=== PATIENT | female | born 1935 | race Caucasian/White ===

== ENCOUNTER 2021-06-03 16:08 | Outpatient (REF) | payer MEDICARE, SELFPAY ==
[2021-06-03 17:47] LABS: Bilirubin Negative (Negative); Blood Negative (Negative); Clarity Clear (Clear); Glucose Negative (Negative); Ketones Negative (Negative); Leukocyte Esterase Negative (Negative); Nitrite Negative (Negative); Urobilinogen 0.2 EU/dL (Up TO 0.2); pH 5.5 (5-8)
== END 2021-06-03 16:09 | disposition home or self-care (01) ==
LOC: NCHCN 16:08
PROVIDERS: Visit Provider Nurse Practitioner Family
DX: N39.0 Urinary tract infection, site not specified (principal)
CPT/HCPCS: 81003

== ENCOUNTER 2021-08-25 18:35 | Outpatient (REF) | payer MEDICARE, SELFPAY | END 2021-08-25 18:36 | disposition home or self-care (01) | LOC: NCHCN 18:35 | PROVIDERS: Visit Provider Nurse Practitioner Family | DX: N39.0 Urinary tract infection, site not specified (principal) | CPT/HCPCS: 87086 ==

== ENCOUNTER 2021-12-30 18:04 | Outpatient (REF) | payer MEDICARE, SELFPAY | END 2021-12-30 18:05 | disposition home or self-care (01) | LOC: NCHCN 18:04 | PROVIDERS: Visit Provider Family Medicine | DX: R35.0 Frequency of micturition (principal); Z87.448 Personal history of other diseases of urinary system | CPT/HCPCS: 87086 ==

== ENCOUNTER 2022-04-06 17:53 | Outpatient (REF) | payer MEDICARE, SELFPAY ==
[2022-04-06 21:12] LABS: Bilirubin Negative (Negative); Blood Moderate (Negative); Clarity Cloudy (Clear); Glucose Negative (Negative); Ketones Negative (Negative); Leukocyte Esterase Large (Negative); Nitrite Negative (Negative); Specific Gravity 1.015 (1.005-1.025); Urobilinogen 0.2 EU/dL (Up TO 0.2); pH 6.5 (5-8)
[2022-04-06 21:21] LABS: Bacteria Many HPF (Negative); WBC >50 HPF (0-5)
[2022-04-06 21:22] LABS: C & S Indicated? Yes
== END 2022-04-06 17:54 | disposition home or self-care (01) ==
LOC: LBN 17:53
PROVIDERS: PCP Nurse Practitioner Family; Visit Provider Nurse Practitioner Family
DX: R39.89 Other symptoms and signs involving the genitourinary system (principal)
CPT/HCPCS: 87077; 81003; 81015; 87086; 87186

== ENCOUNTER 2022-07-02 16:03 | Outpatient (REF) | payer MEDICARE, SELFPAY | END 2022-07-02 16:04 | disposition home or self-care (01) | LOC: NCHCN 16:03 | PROVIDERS: PCP Nurse Practitioner Family; Visit Provider Nurse Practitioner Family | DX: R35.0 Frequency of micturition (principal) | CPT/HCPCS: 87086 ==

== ENCOUNTER 2022-07-22 11:23 | Outpatient (REF) | payer MEDICARE, SELFPAY ==
[2022-07-22 15:36] LABS: HCT 30.2 % (36.0-46.0); HGB 9.9 g/dL (11.2-15.7); MCH 31.1 pg (27.0-33.0); MCHC 32.8 % (32.0-36.0); MCV 95 fL (80-95); MPV 10.2 fL (8.0-11.0); Platelet Count 269 10^3/uL (130-400); RBC 3.18 10^6/uL (3.93-5.22); RDW 14.1 % (11.7-14.6); RDW-SD 49.3 fL
[2022-07-22 15:59] LABS: Anion Gap 7.8 mmol/L (3-11); BUN 11 mg/dL (7-18); CO2 29.2 mmol/L (21.0-32.0); CREATININE 1.1 mg/dL (0.55-1.02); Calcium 10.7 mg/dL (8.5-10.1); Chloride 96 mmol/L (98-107); Estimated GFR 49.24 (mL/min/1.73m2); Glucose 121 mg/dL (74-106); Potassium 5.1 mmol/L (3.5-5.1); Sodium 133 mmol/L (136-145); TSH 1.09 uIU/mL (0.36-3.74)
[2022-07-22 17:26] LABS: Vitamin D 25 Total 65.9 ng/mL (30-100)
[2022-07-23 08:54] LABS: Abs Immature Grans 0.04 10^3/uL (0.0-0.06); Absolute Basophil Count 0.07 10^3/uL (0.0-0.2); Absolute Eosinophil Count 0.29 10^3/uL (0.0-0.7); Absolute Lymphocyte Count 2.03 10^3/uL (1.2-3.4); Absolute Monocyte Count 0.87 10^3/uL (0.1-0.8); Absolute Neutrophil Count 3.91 10^3/uL (1.2-6.7); Immature Grans % 0.6; Lymphocytes % 28.2; Monocytes % 12.1; Neutrophils % 54.1
[2022-07-23 09:17] LABS: Diff Comment Agrees w/ Instrument; RBC Morphology Normal
[2022-07-23 14:37] LABS: Hemoglobin A1C 6.2 % (<5.7)
== END 2022-07-22 11:24 | disposition home or self-care (01) ==
LOC: NCHCN 11:23
PROVIDERS: PCP Nurse Practitioner Family; Visit Provider Nurse Practitioner Family
DX: R53.83 Other fatigue (principal); R73.03 Prediabetes; E83.52 Hypercalcemia
CPT/HCPCS: 80048; 82306; 85027; 83036; 84443; 85007

== ENCOUNTER 2022-07-29 01:19 | Outpatient (CLI) | payer MEDICARE, SELFPAY ==
--- NOTE | 2022-07-29 | DI.RAD_ITS ---
Exam(s) XR CHEST 2V PA LATERAL EXAM: XR CHEST 2V PA LATERAL CLINICAL HISTORY: COVID 19 INFECTION 06/26/22, U07.1, ONGOING FATIGUE, R53.83 TECHNIQUE: 2D digital imaging was performed. COMPARISON: No exams were available for comparison FINDINGS: HEART: Normal size. Aorta: Not dilated. PULMONARY VASCULATURE: Normal. LUNGS: Clear. PLEURAL SPACE: No pleural effusion or pneumothorax. BONE:Unremarkable for age. IMPRESSION: No acute abnormality. DATA REPOSITORY: RADIATION DOSE DELIVERED:
== END 2022-07-29 01:39 ==
PROVIDERS: PCP Nurse Practitioner Family; Visit Provider Nurse Practitioner Family
DX: R53.83 Other fatigue (principal); Z86.16 Personal history of COVID-19; R06.89 Other abnormalities of breathing
CPT/HCPCS: 71046

== ENCOUNTER 2022-08-07 15:47 | Outpatient (REF) | payer MEDICARE, SELFPAY ==
[2022-08-07 19:56] LABS: Iron 50 ug/dL (50-170); Total Iron Binding Capacity 262 ug/dL (250-450); Transferrin Sat 19 % (15-50)
[2022-08-07 20:20] LABS: Ferritin 113 ng/mL (8-252); Vitamin B12 1030 pg/mL (193-986)
[2022-08-07 20:21] LABS: Folate > 20.0 ng/mL (8.6-20.0)
[2022-08-07 20:24] LABS: Vitamin D 25 Total 70.8 ng/mL (30-100)
== END 2022-08-07 15:48 | disposition home or self-care (01) ==
LOC: NCHCN 15:47
PROVIDERS: PCP Nurse Practitioner Family; Visit Provider Nurse Practitioner Family
DX: D64.9 Anemia, unspecified (principal); R53.83 Other fatigue
CPT/HCPCS: 82306; 82607; 82728; 82746; 83540; 83550

== ENCOUNTER 2022-08-17 15:46 | Outpatient (REF) | payer MEDICARE, SELFPAY ==
[2022-08-17 20:15] LABS: Abs Immature Grans 0.05 10^3/uL (0.0-0.06); Absolute Basophil Count 0.08 10^3/uL (0.0-0.2); Absolute Eosinophil Count 0.41 10^3/uL (0.0-0.7); Absolute Lymphocyte Count 2.38 10^3/uL (1.2-3.4); Absolute Monocyte Count 0.58 10^3/uL (0.1-0.8); Absolute Neutrophil Count 3.87 10^3/uL (1.2-6.7); Basophils % 1.1; Eosinophils % 5.6; HGB 10.1 g/dL (11.2-15.7); Immature Grans % 0.7; Lymphocytes % 32.3; MCH 31.7 pg (27.0-33.0); MCHC 33.7 % (32.0-36.0); MCV 94 fL (80-95); MPV 9.8 fL (8.0-11.0); Monocytes % 7.9; Neutrophils % 52.4; Platelet Count 301 10^3/uL (130-400); RBC 3.19 10^6/uL (3.93-5.22); RDW 14.9 % (11.7-14.6); RDW-SD 51.2 fL; Reticulocyte 1.9 % (0.5-2.4); WBC 7.37 10^3/uL (4.4-10.8)
[2022-08-17 20:17] LABS: LDH 129 U/L (81-234)
[2022-08-17 21:40] LABS: Diff Comment Diff Reviewed
[2022-08-17 21:41] LABS: RBC Morphology Normal
[2022-08-19 09:20] LABS: Haptoglobin 193 mg/dL (32-197); Kappa Free Light Chain 8.51 mg/dL (0.33-1.94); Lambda Free Light Chain 0.63 mg/dL (0.57-2.63)
[2022-08-19 13:15] LABS: Albumin 35.9 % (55.8-66.1); Albumin g/dL 3.6 g/dL (3.6-5.2); Comment (See Note); Monoclonal Spike 41.1 % (None Seen); Monoclonal Spike g/dL 4.1 g/dL (None Seen); Total Protein 9.9 g/dL (6.3-8.2)
[2022-08-19 16:41] LABS: Immunotyping, Serum (See Note)
== END 2022-08-17 15:47 | disposition home or self-care (01) ==
LOC: NCHCN 15:46
PROVIDERS: PCP Nurse Practitioner Family; Visit Provider Nurse Practitioner Family
DX: R63.4 Abnormal weight loss (principal); D64.9 Anemia, unspecified; R53.83 Other fatigue
CPT/HCPCS: 85027; 83010; 83615; 83883; 84165; 85007; 85045; 86320

== ENCOUNTER 2022-09-24 04:17 | Outpatient (CLI) | payer MEDICARE, SELFPAY ==
[2022-09-24 12:43] LABS: Abs Immature Grans 0.01 10^3/uL (0.0-0.06); Absolute Basophil Count 0.04 10^3/uL (0.0-0.2); Absolute Eosinophil Count 0.23 10^3/uL (0.0-0.7); Absolute Lymphocyte Count 2.06 10^3/uL (1.2-3.4); Absolute Monocyte Count 0.88 10^3/uL (0.1-0.8); Absolute Neutrophil Count 2.69 10^3/uL (1.2-6.7); Basophils % 0.7; Eosinophils % 3.9; HCT 29.6 % (36.0-46.0); HGB 9.7 g/dL (11.2-15.7); Immature Grans % 0.2; Lymphocytes % 34.9; MCH 31.3 pg (27.0-33.0); MCHC 32.8 % (32.0-36.0); MCV 96 fL (80-95); Monocytes % 14.9; Neutrophils % 45.4; Platelet Count 189 10^3/uL (130-400); RDW 15.6 % (11.7-14.6); RDW-SD 54.7 fL; WBC 5.91 10^3/uL (4.4-10.8)
[2022-09-24 12:57] LABS: ALT 25 U/L (14-59); AST 24 U/L (15-37); Albumin 3.1 g/dL (3.4-5.0); Alkaline Phosphatase 51 U/L (46-116); Anion Gap 7.1 mmol/L (3-11); BUN 29 mg/dL (7-18); Bilirubin, Total 0.3 mg/dL (0.2-1.0); CO2 28.9 mmol/L (21.0-32.0); CREATININE 1.2 mg/dL (0.55-1.02); Calcium 9.9 mg/dL (8.5-10.1); Chloride 101 mmol/L (98-107); Estimated GFR 44.36 (mL/min/1.73m2); Glucose 109 mg/dL (74-106); Potassium 5.1 mmol/L (3.5-5.1); Sodium 137 mmol/L (136-145); Total Protein 8.9 g/dL (6.4-8.2)
[2022-09-25 10:23] LABS: IgA 3293 mg/dL (85-499); IgG 257 mg/dL (610-1616); IgM 31 mg/dL (35-242); Kappa Free Light Chain 2.31 mg/dL (0.33-1.94); Lambda Free Light Chain 0.58 mg/dL (0.57-2.63)
[2022-09-25 12:43] LABS: Albumin 40.9 % (55.8-66.1); Albumin g/dL 3.7 g/dL (3.6-5.2); Comment (See Note); Monoclonal Spike 37.3 % (None Seen); Monoclonal Spike g/dL 3.4 g/dL (None Seen); Total Protein 9.1 g/dL (6.3-8.2)
== END 2022-09-24 04:18 | disposition home or self-care (01) ==
LOC: LBO 04:17
PROVIDERS: PCP Nurse Practitioner Family; Visit Provider Internal Medicine Hematology & Oncology
DX: C90.00 Multiple myeloma not having achieved remission (principal)
CPT/HCPCS: 36415; 80053; 82784; 83883; 84165; 85025

== ENCOUNTER 2022-10-08 03:32 | Outpatient (CLI) | payer MEDICARE, SELFPAY ==
[2022-10-08 10:04] LABS: Abs Immature Grans 0.02 10^3/uL (0.0-0.06); Absolute Basophil Count 0.06 10^3/uL (0.0-0.2); Absolute Eosinophil Count 0.29 10^3/uL (0.0-0.7); Absolute Lymphocyte Count 1.31 10^3/uL (1.2-3.4); Absolute Monocyte Count 0.89 10^3/uL (0.1-0.8); Basophils % 0.7; Eosinophils % 3.5; HCT 27.5 % (36.0-46.0); HGB 9.2 g/dL (11.2-15.7); Immature Grans % 0.2; MCH 32.4 pg (27.0-33.0); MCHC 33.5 % (32.0-36.0); MCV 97 fL (80-95); MPV 9.4 fL (8.0-11.0); Monocytes % 10.9; Neutrophils % 68.7; Platelet Count 315 10^3/uL (130-400); RBC 2.84 10^6/uL (3.93-5.22); RDW 15.4 % (11.7-14.6); RDW-SD 54.9 fL; WBC 8.17 10^3/uL (4.4-10.8)
[2022-10-08 10:22] LABS: ALT 21 U/L (14-59); AST 17 U/L (15-37); Albumin 3.1 g/dL (3.4-5.0); Alkaline Phosphatase 98 U/L (46-116); Anion Gap 5.3 mmol/L (3-11); BUN 26 mg/dL (7-18); Bilirubin, Total 0.4 mg/dL (0.2-1.0); CO2 28.7 mmol/L (21.0-32.0); CREATININE 1.1 mg/dL (0.55-1.02); Calcium 9.4 mg/dL (8.5-10.1); Chloride 99 mmol/L (98-107); Estimated GFR 49.24 (mL/min/1.73m2); Glucose 112 mg/dL (74-106); Potassium 4.6 mmol/L (3.5-5.1); Sodium 133 mmol/L (136-145); Total Protein 6.9 g/dL (6.4-8.2)
[2022-10-09 10:44] LABS: IgA 1134 mg/dL (85-499); IgG 248 mg/dL (610-1616); IgM 17 mg/dL (35-242); Kappa Free Light Chain 2.36 mg/dL (0.33-1.94); Lambda Free Light Chain 0.73 mg/dL (0.57-2.63)
[2022-10-09 13:23] LABS: Albumin 53.2 % (55.8-66.1); Albumin g/dL 3.5 g/dL (3.6-5.2); Comment (See Note); Monoclonal Spike 16.7 % (None Seen); Monoclonal Spike g/dL 1.1 g/dL (None Seen); Total Protein 6.6 g/dL (6.3-8.2)
== END 2022-10-08 03:33 | disposition home or self-care (01) ==
LOC: LBO 03:33
PROVIDERS: PCP Nurse Practitioner Family; Visit Provider Internal Medicine Hematology & Oncology
DX: C90.00 Multiple myeloma not having achieved remission (principal)
CPT/HCPCS: 36415; 80053; 82784; 83883; 84165; 85025

== ENCOUNTER 2022-11-02 04:33 | Outpatient (CLI) | payer MEDICARE, SELFPAY ==
[2022-11-02 13:18] LABS: Abs Immature Grans 0.01 10^3/uL (0.0-0.06); Absolute Basophil Count 0.19 10^3/uL (0.0-0.2); Absolute Eosinophil Count 0.49 10^3/uL (0.0-0.7); Absolute Lymphocyte Count 2.05 10^3/uL (1.2-3.4); Absolute Monocyte Count 0.76 10^3/uL (0.1-0.8); Basophils % 2.9; Eosinophils % 7.4; HCT 30.2 % (36.0-46.0); Immature Grans % 0.2; Lymphocytes % 31.1; MCH 32.5 pg (27.0-33.0); MCHC 33.1 % (32.0-36.0); MCV 98 fL (80-95); MPV 10.5 fL (8.0-11.0); Monocytes % 11.5; Neutrophils % 46.9; Platelet Count 353 10^3/uL (130-400); RBC 3.08 10^6/uL (3.93-5.22); RDW 14.4 % (11.7-14.6); RDW-SD 51.1 fL
[2022-11-02 13:41] LABS: ALT 28 U/L (14-59); AST 25 U/L (15-37); Albumin 3.4 g/dL (3.4-5.0); Alkaline Phosphatase 68 U/L (46-116); Anion Gap 5.5 mmol/L (3-11); BUN 11 mg/dL (7-18); Bilirubin, Total 0.2 mg/dL (0.2-1.0); CO2 26.5 mmol/L (21.0-32.0); Calcium 9.1 mg/dL (8.5-10.1); Chloride 107 mmol/L (98-107); Estimated GFR 55.21 (mL/min/1.73m2); Glucose 98 mg/dL (74-106); Sodium 139 mmol/L (136-145); Total Protein 6.6 g/dL (6.4-8.2)
[2022-11-03 11:18] LABS: Kappa Free Light Chain 3.84 mg/dL (0.33-1.94); Lambda Free Light Chain 2.45 mg/dL (0.57-2.63)
[2022-11-03 11:44] LABS: IgA 273 mg/dL (85-499); IgG 502 mg/dL (610-1616); IgM 18 mg/dL (35-242)
[2022-11-03 15:17] LABS: Albumin 59.9 % (55.8-66.1); Albumin g/dL 3.7 g/dL (3.6-5.2); Comment (See Note); Total Protein 6.1 g/dL (6.3-8.2)
== END 2022-11-02 04:34 | disposition home or self-care (01) ==
PROVIDERS: PCP Nurse Practitioner Family; Visit Provider Internal Medicine Hematology & Oncology
DX: C90.00 Multiple myeloma not having achieved remission (principal)
CPT/HCPCS: 36415; 80053; 82784; 83883; 84165; 85025

== ENCOUNTER 2022-11-19 03:13 | Outpatient (CLI) | payer MEDICARE, SELFPAY ==
[2022-11-19 12:09] LABS: Abs Immature Grans 0.03 10^3/uL (0.0-0.06); Absolute Basophil Count 0.15 10^3/uL (0.0-0.2); Absolute Eosinophil Count 1.16 10^3/uL (0.0-0.7); Absolute Lymphocyte Count 1.55 10^3/uL (1.2-3.4); Absolute Monocyte Count 1.07 10^3/uL (0.1-0.8); Absolute Neutrophil Count 5.48 10^3/uL (1.2-6.7); Basophils % 1.6; Eosinophils % 12.3; HCT 33.1 % (36.0-46.0); HGB 10.8 g/dL (11.2-15.7); Immature Grans % 0.3; Lymphocytes % 16.4; MCH 31.4 pg (27.0-33.0); MCHC 32.6 % (32.0-36.0); MCV 96 fL (80-95); MPV 11.2 fL (8.0-11.0); Monocytes % 11.3; Neutrophils % 58.1; Platelet Count 218 10^3/uL (130-400); RBC 3.44 10^6/uL (3.93-5.22); RDW-SD 49.6 fL; WBC 9.44 10^3/uL (4.4-10.8)
[2022-11-19 12:30] LABS: ALT 24 U/L (14-59); AST 18 U/L (15-37); Albumin 3.4 g/dL (3.4-5.0); Alkaline Phosphatase 60 U/L (46-116); Anion Gap 9.2 mmol/L (3-11); BUN 20 mg/dL (7-18); Bilirubin, Total 0.4 mg/dL (0.2-1.0); CO2 26.8 mmol/L (21.0-32.0); CREATININE 0.9 mg/dL (0.55-1.02); Chloride 103 mmol/L (98-107); Estimated GFR 62.65 (mL/min/1.73m2); Glucose 115 mg/dL (74-106); Potassium 4.7 mmol/L (3.5-5.1); Sodium 139 mmol/L (136-145); Total Protein 6.8 g/dL (6.4-8.2)
[2022-11-20 10:31] LABS: IgA 191 mg/dL (85-499); IgG 507 mg/dL (610-1616); IgM 27 mg/dL (35-242); Kappa Free Light Chain 3.38 mg/dL (0.33-1.94); Lambda Free Light Chain 2.13 mg/dL (0.57-2.63)
[2022-11-20 15:38] LABS: Albumin 59.7 % (55.8-66.1); Albumin g/dL 3.6 g/dL (3.6-5.2); Comment (See Note); Total Protein 6.1 g/dL (6.3-8.2)
[2022-11-20 16:13] LABS: Immunotyping, Serum (See Note)
== END 2022-11-19 03:14 | disposition home or self-care (01) ==
LOC: LBO 03:13
PROVIDERS: PCP Nurse Practitioner Family; Visit Provider Internal Medicine Hematology & Oncology
DX: C90.00 Multiple myeloma not having achieved remission (principal)
CPT/HCPCS: 36415; 80053; 82784; 83883; 84165; 85025; 86320

== ENCOUNTER 2022-12-01 04:00 | Outpatient (CLI) | payer MEDICARE, SELFPAY ==
[2022-12-01 10:04] LABS: Absolute Basophil Count 0.19 10^3/uL (0.0-0.2); Absolute Eosinophil Count 0.83 10^3/uL (0.0-0.7); Absolute Monocyte Count 0.65 10^3/uL (0.1-0.8); Absolute Neutrophil Count 1.47 10^3/uL (1.2-6.7); Basophils % 4.2; Eosinophils % 18.3; HCT 32.9 % (36.0-46.0); HGB 10.6 g/dL (11.2-15.7); Lymphocytes % 30.8; MCH 31.2 pg (27.0-33.0); MCHC 32.2 % (32.0-36.0); MCV 97 fL (80-95); Monocytes % 14.3; Neutrophils % 32.4; Platelet Count 281 10^3/uL (130-400); RDW 14.3 % (11.7-14.6); RDW-SD 51.2 fL; WBC 4.54 10^3/uL (4.4-10.8)
[2022-12-01 10:47] LABS: ALT 22 U/L (14-59); AST 20 U/L (15-37); Albumin 3.5 g/dL (3.4-5.0); Alkaline Phosphatase 58 U/L (46-116); Anion Gap 8.2 mmol/L (3-11); BUN 18 mg/dL (7-18); Bilirubin, Total 0.3 mg/dL (0.2-1.0); CO2 25.8 mmol/L (21.0-32.0); Calcium 9.1 mg/dL (8.5-10.1); Chloride 106 mmol/L (98-107); Estimated GFR 55.21 (mL/min/1.73m2); Glucose 115 mg/dL (74-106); Potassium 5.3 mmol/L (3.5-5.1); Sodium 140 mmol/L (136-145); Total Protein 6.8 g/dL (6.4-8.2)
[2022-12-02 10:13] LABS: IgA 178 mg/dL (85-499); IgG 519 mg/dL (610-1616); IgM 24 mg/dL (35-242); Kappa Free Light Chain 3.75 mg/dL (0.33-1.94); Lambda Free Light Chain 2.23 mg/dL (0.57-2.63)
[2022-12-02 15:45] LABS: Albumin g/dL 3.7 g/dL (3.6-5.2); Comment (See Note)
[2022-12-02 16:13] LABS: Immunotyping, Serum (See Note)
== END 2022-12-01 04:01 | disposition home or self-care (01) ==
LOC: LBO 04:00
PROVIDERS: PCP Nurse Practitioner Family; Visit Provider Internal Medicine Hematology & Oncology
DX: C90.00 Multiple myeloma not having achieved remission (principal)
CPT/HCPCS: 36415; 80053; 82784; 83883; 84165; 85025; 86320

== ENCOUNTER 2022-12-28 03:01 | Outpatient (CLI) | payer MEDICARE, SELFPAY ==
[2022-12-28 12:59] LABS: Absolute Basophil Count 0.19 10^3/uL (0.0-0.2); Absolute Eosinophil Count 0.38 10^3/uL (0.0-0.7); Absolute Monocyte Count 0.63 10^3/uL (0.1-0.8); Absolute Neutrophil Count 3.95 10^3/uL (1.2-6.7); Basophils % 3.1; Eosinophils % 6.3; HCT 30.6 % (36.0-46.0); Lymphocytes % 14.9; MCH 31.3 pg (27.0-33.0); MCHC 32.7 % (32.0-36.0); MCV 96 fL (80-95); MPV 9.7 fL (8.0-11.0); Monocytes % 10.4; Neutrophils % 65.3; Platelet Count 281 10^3/uL (130-400); RBC 3.19 10^6/uL (3.93-5.22); RDW 15.2 % (11.7-14.6); WBC 6.05 10^3/uL (4.4-10.8)
[2022-12-28 13:14] LABS: ALT 19 U/L (14-59); AST 18 U/L (15-37); Albumin 3.2 g/dL (3.4-5.0); Alkaline Phosphatase 50 U/L (46-116); Anion Gap 9.5 mmol/L (3-11); BUN 15 mg/dL (7-18); Bilirubin, Total 0.3 mg/dL (0.2-1.0); CO2 24.5 mmol/L (21.0-32.0); Calcium 8.4 mg/dL (8.5-10.1); Chloride 106 mmol/L (98-107); Estimated GFR 55.21 (mL/min/1.73m2); Glucose 149 mg/dL (74-106); Potassium 4.8 mmol/L (3.5-5.1); Sodium 140 mmol/L (136-145); Total Protein 6.3 g/dL (6.4-8.2)
[2022-12-30 11:13] LABS: IgA 163 mg/dL (85-499); IgG 438 mg/dL (610-1616); IgM 24 mg/dL (35-242); Kappa Free Light Chain 2.76 mg/dL (0.33-1.94); Lambda Free Light Chain 1.81 mg/dL (0.57-2.63)
[2022-12-30 14:20] LABS: Albumin 60.8 % (55.8-66.1); Albumin g/dL 3.5 g/dL (3.6-5.2); Comment (See Note); Total Protein 5.8 g/dL (6.3-8.2)
[2022-12-30 15:03] LABS: Immunotyping, Serum (See Note)
== END 2022-12-28 03:02 | disposition home or self-care (01) ==
LOC: LBO 03:02
PROVIDERS: PCP Nurse Practitioner Family; Visit Provider Internal Medicine Hematology & Oncology
DX: C90.00 Multiple myeloma not having achieved remission (principal)
CPT/HCPCS: 36415; 80053; 82784; 83883; 84165; 85025; 86320

== ENCOUNTER 2022-12-31 11:12 | Outpatient (CLI) | payer MEDICARE, SELFPAY ==
--- NOTE | 2022-12-31 | DI.RAD_ITS ---
Exam(s) XR CHEST 2V PA LATERAL EXAM: XR CHEST 2V PA LATERAL CLINICAL HISTORY: MULTIPLE MYELOMA,C90.00,URI NOW,INCREASED FATIGUE AND SOB TECHNIQUE: 2D digital imaging was performed. COMPARISON: CR XR CHEST 2V PA LATERAL from 07/29/2022 FINDINGS: Moderate size hiatal hernia. HEART: Normal size. Aorta: Not dilated. PULMONARY VASCULATURE: Normal. LUNGS: Fibrotic changes. Clear. PLEURAL SPACE: No pleural effusion or pneumothorax. BONE:Mild compression fracture of T11, new since prior. Scoliosis and degenerative changes. No dest ructive lesions are visible. IMPRESSION: No acute abnormality. DATA REPOSITORY: RADIATION DOSE DELIVERED:
== END 2022-12-31 11:32 ==
LOC: DI 11:12
PROVIDERS: PCP Nurse Practitioner Family; Visit Provider Nurse Practitioner Family
DX: C90.00 Multiple myeloma not having achieved remission (principal)
CPT/HCPCS: 71046

== ENCOUNTER 2023-01-07 03:18 | Outpatient (CLI) | payer MEDICARE, SELFPAY ==
[2023-01-07 10:43] LABS: Abs Immature Grans 0.02 10^3/uL (0.0-0.06); Absolute Eosinophil Count 0.22 10^3/uL (0.0-0.7); Absolute Lymphocyte Count 1.38 10^3/uL (1.2-3.4); Absolute Monocyte Count 0.59 10^3/uL (0.1-0.8); Basophils % 3.2; Eosinophils % 3.5; HCT 33.9 % (36.0-46.0); Immature Grans % 0.3; Lymphocytes % 21.9; MCH 30.5 pg (27.0-33.0); MCHC 32.4 % (32.0-36.0); MCV 94 fL (80-95); MPV 9.4 fL (8.0-11.0); Monocytes % 9.4; Neutrophils % 61.7; Platelet Count 314 10^3/uL (130-400); RBC 3.61 10^6/uL (3.93-5.22); RDW-SD 52.3 fL; WBC 6.31 10^3/uL (4.4-10.8)
[2023-01-07 10:57] LABS: ALT 15 U/L (14-59); AST 20 U/L (15-37); Albumin 3.3 g/dL (3.4-5.0); Alkaline Phosphatase 59 U/L (46-116); BUN 16 mg/dL (7-18); Bilirubin, Total 0.3 mg/dL (0.2-1.0); Calcium 9.1 mg/dL (8.5-10.1); Chloride 103 mmol/L (98-107); Estimated GFR 55.21 (mL/min/1.73m2); Glucose 120 mg/dL (74-106); Potassium 4.6 mmol/L (3.5-5.1); Sodium 139 mmol/L (136-145)
[2023-01-08 09:23] LABS: IgA 265 mg/dL (85-499); IgG 575 mg/dL (610-1616); IgM 24 mg/dL (35-242); Kappa Free Light Chain 3.02 mg/dL (0.33-1.94); Lambda Free Light Chain 2.03 mg/dL (0.57-2.63)
[2023-01-08 14:10] LABS: Albumin 59.2 % (55.8-66.1); Albumin g/dL 3.7 g/dL (3.6-5.2); Comment (See Note); Total Protein 6.3 g/dL (6.3-8.2)
[2023-01-08 16:47] LABS: Immunotyping, Serum (See Note)
== END 2023-01-07 03:19 | disposition home or self-care (01) ==
LOC: LBO 03:18
PROVIDERS: PCP Nurse Practitioner Family; Visit Provider Internal Medicine Hematology & Oncology
DX: C90.00 Multiple myeloma not having achieved remission (principal)
CPT/HCPCS: 36415; 80053; 82784; 83883; 84165; 85025; 86320

== ENCOUNTER 2023-01-28 10:57 | Outpatient (CLI) | payer MEDICARE, SELFPAY ==
[2023-01-28 09:37] LABS: Abs Immature Grans 0.01 10^3/uL (0.0-0.06); Absolute Basophil Count 0.12 10^3/uL (0.0-0.2); Absolute Eosinophil Count 0.47 10^3/uL (0.0-0.7); Absolute Lymphocyte Count 1.75 10^3/uL (1.2-3.4); Absolute Monocyte Count 0.49 10^3/uL (0.1-0.8); Absolute Neutrophil Count 1.84 10^3/uL (1.2-6.7); Basophils % 2.6; HCT 36.1 % (36.0-46.0); HGB 11.7 g/dL (11.2-15.7); Immature Grans % 0.2; Lymphocytes % 37.4; MCH 30.5 pg (27.0-33.0); MCHC 32.4 % (32.0-36.0); MCV 94 fL (80-95); Monocytes % 10.5; Neutrophils % 39.3; Platelet Count 228 10^3/uL (130-400); RBC 3.83 10^6/uL (3.93-5.22); RDW 15.2 % (11.7-14.6); RDW-SD 53.1 fL; WBC 4.68 10^3/uL (4.4-10.8)
[2023-01-28 10:18] LABS: ALT 16 U/L (14-59); AST 25 U/L (15-37); Albumin 3.6 g/dL (3.4-5.0); Alkaline Phosphatase 53 U/L (46-116); Anion Gap 6.6 mmol/L (3-11); BUN 21 mg/dL (7-18); Bilirubin, Total 0.5 mg/dL (0.2-1.0); CO2 27.4 mmol/L (21.0-32.0); CREATININE 1.1 mg/dL (0.55-1.02); Calcium 9.6 mg/dL (8.5-10.1); Chloride 103 mmol/L (98-107); Estimated GFR 49.24 (mL/min/1.73m2); Glucose 82 mg/dL (74-106); Potassium 5.1 mmol/L (3.5-5.1); Sodium 137 mmol/L (136-145)
[2023-02-01 10:26] LABS: IgA 383 mg/dL (85-499); IgG 592 mg/dL (610-1616); IgM 29 mg/dL (35-242); Kappa Free Light Chain 2.84 mg/dL (0.33-1.94); Lambda Free Light Chain 1.52 mg/dL (0.57-2.63)
[2023-02-01 15:37] LABS: Albumin 60.8 % (55.8-66.1); Albumin g/dL 4.1 g/dL (3.6-5.2); Comment (See Note); Total Protein 6.8 g/dL (6.3-8.2)
[2023-02-01 16:37] LABS: Immunotyping, Serum (See Note)
== END 2023-01-28 10:58 | disposition home or self-care (01) ==
LOC: LBO 10:57
PROVIDERS: PCP Nurse Practitioner Family; Visit Provider Internal Medicine Hematology & Oncology
DX: C90.00 Multiple myeloma not having achieved remission (principal)
CPT/HCPCS: 36415; 80053; 82784; 83883; 84165; 85025; 86320

== ENCOUNTER 2023-03-22 14:32 | Outpatient (CLI) | payer MEDICARE, SELFPAY ==
[2023-03-22 13:02] LABS: Abs Immature Grans 0.01 10^3/uL (0.0-0.06); Absolute Basophil Count 0.08 10^3/uL (0.0-0.2); Absolute Eosinophil Count 0.23 10^3/uL (0.0-0.7); Absolute Lymphocyte Count 1.64 10^3/uL (1.2-3.4); Absolute Monocyte Count 0.61 10^3/uL (0.1-0.8); Absolute Neutrophil Count 2.77 10^3/uL (1.2-6.7); Basophils % 1.5; Eosinophils % 4.3; HGB 11.6 g/dL (11.2-15.7); Immature Grans % 0.2; Lymphocytes % 30.7; MCH 30.9 pg (27.0-33.0); MCHC 33.1 % (32.0-36.0); MCV 93 fL (80-95); MPV 9.4 fL (8.0-11.0); Monocytes % 11.4; Neutrophils % 51.9; Platelet Count 261 10^3/uL (130-400); RBC 3.75 10^6/uL (3.93-5.22); RDW-SD 44.8 fL; WBC 5.34 10^3/uL (4.4-10.8)
[2023-03-22 13:42] LABS: ALT 24 U/L (14-59); AST 29 U/L (15-37); Albumin 3.8 g/dL (3.4-5.0); Alkaline Phosphatase 49 U/L (46-116); Anion Gap 11.3 mmol/L (3-11); BUN 19 mg/dL (7-18); Bilirubin, Total 0.5 mg/dL (0.2-1.0); CO2 24.7 mmol/L (21.0-32.0); Calcium 10.3 mg/dL (8.5-10.1); Chloride 98 mmol/L (98-107); Estimated GFR 54.87 (mL/min/1.73m2); Glucose 112 mg/dL (74-106); Sodium 134 mmol/L (136-145); Total Protein 7.6 g/dL (6.4-8.2)
[2023-03-23 09:43] LABS: IgA 1049 mg/dL (85-499); IgG 536 mg/dL (610-1616); IgM 23 mg/dL (35-242); Kappa Free Light Chain 4.03 mg/dL (0.33-1.94); Lambda Free Light Chain 1.05 mg/dL (0.57-2.63)
[2023-03-23 15:30] LABS: Albumin 56.3 % (55.8-66.1); Albumin g/dL 4.3 g/dL (3.6-5.2); Comment (See Note); Monoclonal Spike 4.8 % (None Seen); Monoclonal Spike g/dL 0.4 g/dL (None Seen); Total Protein 7.6 g/dL (6.3-8.2)
== END 2023-03-22 14:33 | disposition home or self-care (01) ==
LOC: LBO 14:33
PROVIDERS: PCP Nurse Practitioner Family; Visit Provider Internal Medicine Hematology & Oncology
DX: C90.00 Multiple myeloma not having achieved remission (principal)
CPT/HCPCS: 36415; 80053; 82784; 83883; 84165; 85025

== ENCOUNTER 2023-04-19 04:49 | Outpatient (CLI) | payer MEDICARE, SELFPAY ==
[2023-04-19 11:46] LABS: Absolute Basophil Count 0.08 10^3/uL (0.0-0.2); Absolute Eosinophil Count 0.25 10^3/uL (0.0-0.7); Absolute Lymphocyte Count 1.57 10^3/uL (1.2-3.4); Absolute Monocyte Count 0.58 10^3/uL (0.1-0.8); Absolute Neutrophil Count 1.32 10^3/uL (1.2-6.7); Basophils % 2.1; Eosinophils % 6.6; HCT 32.3 % (36.0-46.0); HGB 10.6 g/dL (11.2-15.7); Lymphocytes % 41.3; MCH 30.8 pg (27.0-33.0); MCHC 32.8 % (32.0-36.0); MCV 94 fL (80-95); MPV 10.3 fL (8.0-11.0); Monocytes % 15.3; Neutrophils % 34.7; Platelet Count 227 10^3/uL (130-400); RBC 3.44 10^6/uL (3.93-5.22); RDW 13.4 % (11.7-14.6); RDW-SD 46.1 fL
[2023-04-19 12:07] LABS: ALT 25 U/L (14-59); AST 35 U/L (15-37); Albumin 3.4 g/dL (3.4-5.0); Alkaline Phosphatase 38 U/L (46-116); Anion Gap 7.9 mmol/L (3-11); BUN 16 mg/dL (7-18); Bilirubin, Total 0.3 mg/dL (0.2-1.0); CO2 25.1 mmol/L (21.0-32.0); CREATININE 0.9 mg/dL (0.55-1.02); Calcium 9.7 mg/dL (8.5-10.1); Chloride 101 mmol/L (98-107); Estimated GFR 62.26 (mL/min/1.73m2); Glucose 101 mg/dL (74-106); Sodium 134 mmol/L (136-145); Total Protein 7.2 g/dL (6.4-8.2)
[2023-04-20 09:22] LABS: IgA 1159 mg/dL (85-499); IgG 421 mg/dL (610-1616); IgM 24 mg/dL (35-242); Kappa Free Light Chain 5.36 mg/dL (0.33-1.94); Lambda Free Light Chain 1.38 mg/dL (0.57-2.63)
[2023-04-20 12:39] LABS: Albumin 55.4 % (55.8-66.1); Albumin g/dL 3.8 g/dL (3.6-5.2); Comment (See Note); Monoclonal Spike 10.1 % (None Seen); Monoclonal Spike g/dL 0.7 g/dL (None Seen); Total Protein 6.9 g/dL (6.3-8.2)
[2023-04-20 16:49] LABS: Immunotyping, Serum (See Note)
== END 2023-04-19 04:50 | disposition home or self-care (01) ==
LOC: LBO 04:49
PROVIDERS: PCP Nurse Practitioner Family; Visit Provider Internal Medicine Hematology & Oncology
DX: C90.00 Multiple myeloma not having achieved remission (principal)
CPT/HCPCS: 36415; 80053; 82784; 83883; 84165; 85025; 86320

== ENCOUNTER 2023-05-17 03:47 | Outpatient (CLI) | payer MEDICARE, SELFPAY ==
[2023-05-17 13:04] LABS: ALT 22 U/L (14-59); AST 22 U/L (15-37); Albumin 3.1 g/dL (3.4-5.0); Alkaline Phosphatase 41 U/L (46-116); BUN 13 mg/dL (7-18); Bilirubin, Total 0.3 mg/dL (0.2-1.0); CREATININE 0.9 mg/dL (0.55-1.02); Calcium 8.9 mg/dL (8.5-10.1); Chloride 105 mmol/L (98-107); Estimated GFR 62.26 (mL/min/1.73m2); Glucose 91 mg/dL (74-106); HCT 28.7 % (36.0-46.0); HGB 9.3 g/dL (11.2-15.7); MCHC 32.4 % (32.0-36.0); MCV 96 fL (80-95); Platelet Count 122 10^3/uL (130-400); RDW 15.2 % (11.7-14.6); Sodium 139 mmol/L (136-145); Total Protein 6.3 g/dL (6.4-8.2); WBC 2.64 10^3/uL (4.4-10.8)
[2023-05-17 13:24] LABS: Absolute Basophil Count 0.03 10^3/uL (0.0-0.2); Absolute Eosinophil Count 0.32 10^3/uL (0.0-0.7); Absolute Lymphocyte Count 1.08 10^3/uL (1.2-3.4); Absolute Monocyte Count 0.16 10^3/uL (0.1-0.8); Absolute Neutrophil Count 1.06 10^3/uL (1.2-6.7)
[2023-05-17 13:25] LABS: Diff Comment Manual Differential; RBC Morphology Normal
[2023-05-18 10:57] LABS: IgA 515 mg/dL (85-499); IgG 317 mg/dL (610-1616); IgM 15 mg/dL (35-242); Lambda Free Light Chain 1.19 mg/dL (0.57-2.63)
[2023-05-18 14:19] LABS: Albumin 60.3 % (55.8-66.1); Albumin g/dL 3.6 g/dL (3.6-5.2); Comment (See Note); Monoclonal Spike 6.4 % (None Seen); Monoclonal Spike g/dL 0.4 g/dL (None Seen)
[2023-05-18 16:50] LABS: Immunotyping, Serum (See Note)
== END 2023-05-17 03:48 | disposition home or self-care (01) ==
LOC: LOS 03:47
PROVIDERS: PCP Nurse Practitioner Family; Visit Provider Internal Medicine Hematology & Oncology
DX: C90.00 Multiple myeloma not having achieved remission (principal)
CPT/HCPCS: 36415; 80053; 82784; 83883; 84165; 85025; 86320

== ENCOUNTER 2023-06-11 01:45 | Outpatient (CLI) | payer MEDICARE, SELFPAY ==
[2023-06-11 12:14] LABS: Abs Immature Grans 0.01 10^3/uL (0.0-0.06); Absolute Basophil Count 0.04 10^3/uL (0.0-0.2); Absolute Eosinophil Count 0.25 10^3/uL (0.0-0.7); Absolute Lymphocyte Count 1.14 10^3/uL (1.2-3.4); Absolute Monocyte Count 0.59 10^3/uL (0.1-0.8); Absolute Neutrophil Count 1.31 10^3/uL (1.2-6.7); Basophils % 1.2; Eosinophils % 7.5; HCT 27.5 % (36.0-46.0); HGB 8.9 g/dL (11.2-15.7); Immature Grans % 0.3; Lymphocytes % 34.1; MCH 31.6 pg (27.0-33.0); MCHC 32.4 % (32.0-36.0); MCV 98 fL (80-95); Monocytes % 17.7; Neutrophils % 39.2; Platelet Count 245 10^3/uL (130-400); RBC 2.82 10^6/uL (3.93-5.22); RDW-SD 60.6 fL; WBC 3.34 10^3/uL (4.4-10.8)
[2023-06-11 12:31] LABS: ALT 19 U/L (14-59); AST 19 U/L (15-37); Albumin 3.2 g/dL (3.4-5.0); Alkaline Phosphatase 40 U/L (46-116); Anion Gap 8.4 mmol/L (3-11); BUN 16 mg/dL (7-18); Bilirubin, Total 0.3 mg/dL (0.2-1.0); CO2 26.6 mmol/L (21.0-32.0); CREATININE 1.1 mg/dL (0.55-1.02); Chloride 104 mmol/L (98-107); Estimated GFR 48.94 (mL/min/1.73m2); Glucose 108 mg/dL (74-106); Potassium 4.8 mmol/L (3.5-5.1); Sodium 139 mmol/L (136-145); Total Protein 6.4 g/dL (6.4-8.2)
[2023-06-14 10:36] LABS: IgA 458 mg/dL (85-499); IgG 287 mg/dL (610-1616); IgM <12 mg/dL (35-242); Kappa Free Light Chain 3.19 mg/dL (0.33-1.94); Lambda Free Light Chain 1.21 mg/dL (0.57-2.63)
[2023-06-14 13:58] LABS: Albumin 59.6 % (55.8-66.1); Albumin g/dL 3.6 g/dL (3.6-5.2); Comment (See Note); Monoclonal Spike 5.9 % (None Seen); Monoclonal Spike g/dL 0.4 g/dL (None Seen)
[2023-06-14 16:56] LABS: Immunotyping, Serum (See Note)
== END 2023-06-11 01:46 | disposition home or self-care (01) ==
LOC: LOS 01:45
PROVIDERS: PCP Nurse Practitioner Family; Visit Provider Internal Medicine Hematology & Oncology
DX: C90.00 Multiple myeloma not having achieved remission (principal)
CPT/HCPCS: 36415; 80053; 82784; 83883; 84165; 85025; 86320

== ENCOUNTER 2023-06-17 13:27 | Outpatient (CLI) | payer MEDICARE, SELFPAY ==
[2023-06-17 14:37] LABS: Abs Immature Grans 0.01 10^3/uL (0.0-0.06); Absolute Basophil Count 0.08 10^3/uL (0.0-0.2); Absolute Eosinophil Count 0.06 10^3/uL (0.0-0.7); Absolute Lymphocyte Count 1.58 10^3/uL (1.2-3.4); Absolute Monocyte Count 0.64 10^3/uL (0.1-0.8); Basophils % 1.6; Eosinophils % 1.2; HCT 26.9 % (36.0-46.0); HGB 8.8 g/dL (11.2-15.7); Immature Grans % 0.2; Lymphocytes % 31.2; MCH 32.4 pg (27.0-33.0); MCHC 32.7 % (32.0-36.0); MCV 99 fL (80-95); MPV 10.2 fL (8.0-11.0); Monocytes % 12.6; Neutrophils % 53.2; Platelet Count 278 10^3/uL (130-400); RBC 2.72 10^6/uL (3.93-5.22); RDW-SD 61.1 fL; Reticulocyte 1.5 % (0.5-2.4); WBC 5.07 10^3/uL (4.4-10.8)
[2023-06-17 15:36] LABS: Ferritin 24 ng/mL (8-252); Folate 16.4 ng/mL (8.6-20.0); Vitamin B12 620 pg/mL (193-986)
[2023-06-19 10:29] LABS: Erythropoietin 26.8 mIU/mL (2.6 - 18.5)
== END 2023-06-17 13:28 | disposition home or self-care (01) ==
LOC: LBO 06-18 13:27
PROVIDERS: PCP Nurse Practitioner Family; Visit Provider Internal Medicine Hematology & Oncology
DX: C90.00 Multiple myeloma not having achieved remission (principal)
CPT/HCPCS: 36415; 82668; 82607; 82728; 82746; 85025; 85045

== ENCOUNTER 2023-07-16 14:54 | Outpatient (REF) | payer MEDICARE, SELFPAY | END 2023-07-16 14:55 | disposition home or self-care (01) | LOC: NCHCN 14:54 | PROVIDERS: PCP Nurse Practitioner Family; Visit Provider Family Medicine | DX: N39.0 Urinary tract infection, site not specified (principal); R82.89 Other abnormal findings on cytological and histological examination of urine | CPT/HCPCS: 87086 ==

== ENCOUNTER 2023-07-19 05:28 | Outpatient (CLI) | payer MEDICARE, SELFPAY ==
[2023-07-19 12:36] LABS: Abs Immature Grans 0.01 10^3/uL (0.0-0.06); Absolute Basophil Count 0.05 10^3/uL (0.0-0.2); Absolute Eosinophil Count 0.28 10^3/uL (0.0-0.7); Absolute Lymphocyte Count 1.14 10^3/uL (1.2-3.4); Absolute Monocyte Count 0.48 10^3/uL (0.1-0.8); Basophils % 1.4; Eosinophils % 8.1; HCT 31.1 % (36.0-46.0); HGB 10.1 g/dL (11.2-15.7); Immature Grans % 0.3; Lymphocytes % 32.9; MCH 32.2 pg (27.0-33.0); MCHC 32.5 % (32.0-36.0); MCV 99 fL (80-95); MPV 10.2 fL (8.0-11.0); Monocytes % 13.9; Neutrophils % 43.4; Platelet Count 181 10^3/uL (130-400); RBC 3.14 10^6/uL (3.93-5.22); RDW 16.9 % (11.7-14.6); RDW-SD 61.9 fL; Reticulocyte 1.6 % (0.5-2.4); WBC 3.46 10^3/uL (4.4-10.8)
[2023-07-19 13:07] LABS: Ferritin 473 ng/mL (8-252); Folate 18.5 ng/mL (8.6-20.0); Vitamin B12 571 pg/mL (193-986)
[2023-07-20 17:37] LABS: Erythropoietin 7.7 mIU/mL (2.6 - 18.5)
== END 2023-07-19 05:29 | disposition home or self-care (01) ==
LOC: LOS 05:29
PROVIDERS: PCP Nurse Practitioner Family; Visit Provider Internal Medicine Hematology & Oncology
DX: C90.00 Multiple myeloma not having achieved remission (principal)
CPT/HCPCS: 36415; 82668; 82607; 82728; 82746; 85025; 85045

== ENCOUNTER 2023-07-22 12:30 | Outpatient (CLI) | payer MEDICARE, SELFPAY ==
[2023-07-22 13:15] LABS: ALT 17 U/L (14-59); AST 22 U/L (15-37); Albumin 3.5 g/dL (3.4-5.0); Alkaline Phosphatase 39 U/L (46-116); Anion Gap 8.2 mmol/L (3-11); BUN 15 mg/dL (7-18); Bilirubin, Total 0.4 mg/dL (0.2-1.0); CO2 27.8 mmol/L (21.0-32.0); CREATININE 1.1 mg/dL (0.55-1.02); Calcium 9.7 mg/dL (8.5-10.1); Chloride 100 mmol/L (98-107); Estimated GFR 48.94 (mL/min/1.73m2); Glucose 104 mg/dL (74-106); Potassium 4.5 mmol/L (3.5-5.1); Sodium 136 mmol/L (136-145); TSH 0.96 uIU/mL (0.36-3.74); Total Protein 8.1 g/dL (6.4-8.2)
[2023-07-23 09:28] LABS: IgA 1818 mg/dL (85-499); IgG 291 mg/dL (610-1616); IgM 13 mg/dL (35-242); Kappa Free Light Chain 6.18 mg/dL (0.33-1.94); Lambda Free Light Chain 0.45 mg/dL (0.57-2.63)
[2023-07-23 15:35] LABS: Albumin 49.8 % (55.8-66.1); Comment (See Note); Monoclonal Spike 20.9 % (None Seen); Monoclonal Spike g/dL 1.7 g/dL (None Seen); Total Protein 8.1 g/dL (6.3-8.2)
[2023-07-24 17:36] LABS: Immunotyping, Serum (See Note)
== END 2023-07-22 12:31 | disposition home or self-care (01) ==
LOC: LBO 12:30
PROVIDERS: PCP Nurse Practitioner Family; Visit Provider Nurse Practitioner Family
DX: R53.83 Other fatigue (principal)
CPT/HCPCS: 36415; 80053; 82784; 83883; 84165; 84443; 86320

== ENCOUNTER 2023-07-29 12:47 | Emergency (ER) | payer MEDICARE, SELFPAY ==
[2023-07-29 12:53] VITALS: BP 102/44; PULSE 76; RESP 16; TEMP 36.5; O2SAT 100
[2023-07-29 14:09] LABS: Abs Immature Grans 0.02 10^3/uL (0.0-0.06); Absolute Basophil Count 0.01 10^3/uL (0.0-0.2); Absolute Eosinophil Count 0.19 10^3/uL (0.0-0.7); Absolute Lymphocyte Count 0.97 10^3/uL (1.2-3.4); Absolute Monocyte Count 0.37 10^3/uL (0.1-0.8); Absolute Neutrophil Count 2.37 10^3/uL (1.2-6.7); Basophils % 0.3; Eosinophils % 4.8; HCT 30.9 % (36.0-46.0); HGB 10.3 g/dL (11.2-15.7); Immature Grans % 0.5; Lymphocytes % 24.7; MCH 31.9 pg (27.0-33.0); MCHC 33.3 % (32.0-36.0); MCV 96 fL (80-95); MPV 9.4 fL (8.0-11.0); Monocytes % 9.4; Neutrophils % 60.3; Platelet Count 111 10^3/uL (130-400); RBC 3.23 10^6/uL (3.93-5.22); RDW 16.8 % (11.7-14.6); RDW-SD 59.4 fL; WBC 3.93 10^3/uL (4.4-10.8)
[2023-07-29] MEDS: Lactated Ringers 1,000 ML 1000 ML IV (14:11)
[2023-07-29 14:30] LABS: ALT 33 U/L (14-59); AST 25 U/L (15-37); Alkaline Phosphatase 45 U/L (46-116); Anion Gap 9.7 mmol/L (3-11); BUN 8 mg/dL (7-18); Bilirubin, Total 0.4 mg/dL (0.2-1.0); CO2 24.3 mmol/L (21.0-32.0); Calcium 9.1 mg/dL (8.5-10.1); Chloride 102 mmol/L (98-107); Estimated GFR 54.87 (mL/min/1.73m2); Glucose 98 mg/dL (74-106); Magnesium 1.9 mg/dL (1.8-2.4); Potassium 3.9 mmol/L (3.5-5.1); Sodium 136 mmol/L (136-145); Total Protein 7.3 g/dL (6.4-8.2)
--- NOTE | 2023-07-29 14:57 | ED.GENADUL_ITS ---
HPI General Mode of arrival: ambulatory . Date/Time Provider Initiated Documentation: 07/29/23 13:18 . Limitations to Documentation: no limitations . Information obtained by: patient . HPI Narrative: 88-year-old female with history of multiple myeloma, currently being treated with chemotherapy at cancer center, sent to the ER with concern for persistent diarrhea. Patient notes diarrhea over the past 6 days. She states prior to this she had been on an antibiotic to treat urinary tract infection. Diarrhea is watery and persistent. PCP concern for potential C. difficile. Patient no saul she has been eating and drinking less because it runs right through her. She has no associated nausea or vomiting. No abdominal pain. Related Data Home Medications Medication Instructions Recorded Confirmed gabapentin 100 mg capsule 100 mg PO BID 04/06/22 07/29/23 nirmatrelvir 300 mg (150 mg See Rx Instructions PO PER PKG DIR 06/26/22 07/29/23 x2)-ritonavir 100 mg tablet,dose #30 dose pk pack (Paxlovid) ascorbic acid (vitamin C) 1,000 mg 1,000 mg PO DAILY 07/29/23 07/29/23 tablet,extended release (C Complex) cholecalciferol (vitamin D3) 50 50 mcg PO DAILY 07/29/23 07/29/23 mcg (2,000 unit) capsule (Vitamin D3) nitrofurantoin 100 mg PO BID 07/29/23 07/29/23 monohydrate/macrocrystals 100 mg capsule vitamin B complex (B 1 tab PO DAILY 07/29/23 07/29/23 Complex-Vitamin B12 tablet) Previous Rx's Medication Instructions Recorded nirmatrelvir 300 mg (150 mg See Rx Instructions PO PER PKG DIR 06/26/22 x2)-ritonavir 100 mg tablet,dose #30 dose pk pack (Paxlovid) Allergies Allergy/AdvReac Type Severity Reaction Status Date / Time amoxicillin Allergy Verified 07/29/23 12:56 cephalexin Allergy Verified 07/29/23 12:56 General Stated Complaint: GenMedical SMITA: 3 Review of Systems All systems reviewed & are unremarkable except as noted in HPI and below Constitutional Constitutional: Denies fever(s) Gastrointestinal Gastrointestinal: Reports as per HPI, Denies abdominal pain, Reports diarrhea and Denies nausea Exam Const General: cooperative and no acute distress HENMT Mouth: mucous membranes dry Eyes Conjunctivae: normal conjunctivae Sclera: normal sclerae Resp Auscultation: clear to auscultation bilaterally, no rales, no rhonchi and no wheezes Cardio Rate: regular rate and not tachycardic Rhythm: regular rhythm Heart Sounds: murmur systolic II/ GI Inspection: non-distended Palpation: soft, not firm, no guarding, no masses, not rigid and nontender Skin General skin exam: no rashes or lesions noted and turgor decreased Neuro General: patient alert, patient awake, patient oriented x3 and tone normal Extrem General: no edema Psych Appearance: grossly normal Mental Status: mental status grossly normal Speech and Movement: speech and movement normal Course Vital Signs Vital signs: Vital Signs Temperature 36.5 C 07/29/23 12:53 Pulse 76 07/29/23 12:53 Respiratory Rate 16 07/29/23 12:53 Blood Pressure 102/44 L 07/29/23 12:53 Pulse Oximetry 100 07/29/23 12:53 Temperature 36.5 C 07/29/23 12:53 Pulse 76 07/29/23 12:53 Respiratory Rate 16 07/29/23 12:53 Respiratory Effort Normal 07/29/23 14:07 Respiratory Depth Normal 07/29/23 14:07 Respiratory Pattern Normal 07/29/23 14:07 Blood Pressure 102/44 L 07/29/23 12:53 Blood Pressure Position Sitting 07/29/23 12:53 Pulse Oximetry 100 07/29/23 12:53 Oxygen Delivery Method Room Air 07/29/23 12:53 Oxygen Flow Rate 0 07/29/23 12:53 Lab/Test Results Lab/Test Results: Laboratory Tests Range/Units 07/29/23 14:04 WBC (4.4-10.8) 10^3/uL 3.93 L RBC (3.93-5.22) 10^6/uL 3.23 L Hgb (11.2-15.7) g/dL 10.3 L Hct (36.0-46.0) % 30.9 L MCV (80-95) fL 96 H MCH (27.0-33.0) pg 31.9 MCHC (32.0-36.0) % 33.3 RDW (11.7-14.6) % 16.8 H Plt Count (130-400) 10^3/uL 111 L MPV (8.0-11.0) fL 9.4 Immature Gran % 0.5 Neutrophils % 60.3 Lymphocytes % 24.7 Monocytes % 9.4 Eosinophils % 4.8 Basophils % 0.3 Nucleated RBC % (0.0-0.3) % 0.0 Absolute Neutrophils (1.2-6.7) 10^3/uL 2.37 Absolute Lymphocytes (1.2-3.4) 10^3/uL 0.97 L Absolute Monocytes (0.1-0.8) 10^3/uL 0.37 Absolute Eosinophils (0.0-0.7) 10^3/uL 0.19 Absolute Basophils (0.0-0.2) 10^3/uL 0.01 Sodium (136-145) mmol/L 136 Potassium (3.5-5.1) mmol/L 3.9 Chloride (98-107) mmol/L 102 Carbon Dioxide (21.0-32.0) mmol/L 24.3 Anion Gap (3-11) mmol/L 9.7 BUN (7-18) mg/dL 8 Creatinine (0.55-1.02) mg/dL 1.0 Est GFR (CKD-EPI 2020) (mL/min/1.73m2) 54.87 Glucose (74-106) mg/dL 98 Calcium (8.5-10.1) mg/dL 9.1 Magnesium (1.8-2.4) mg/dL 1.9 Total Bilirubin (0.2-1.0) mg/dL 0.4 AST (15-37) U/L 25 ALT (14-59) U/L 33 Alkaline Phosphatase (46-116) U/L 45 L Total Protein (6.4-8.2) g/dL 7.3 Albumin (3.4-5.0) g/dL 3.0 L Medical Decision Making 1507 -- 88-year-old female with history of multiple myeloma on chemotherapy here with diarrhea over the past 6 days after completing antibiotic for urinary tract infection. Labs reviewed and chronic unchanged anemia noted with hemoglobin of 10.3. No significant electrolyte abnormalities. Plan to check C. difficile if she is able to provide specimen today. Patient is hypotensive and not tachycardic. She is hypovolemic. I will give IV fluid bolus and plan to reassess. -- Patient reassessed after IV fluid bolus and has remained stable. She has not yet had a bowel movement here. Awaiting specimen. Quality:SDOH Health Related Social Needs: No Data to Display PFSH All Active Problems COVID-19 (Acute) Social History Smoking risk assessment performed?: No Discharge Plan Discharge Details Chief Complaint: GenMedical Primary Care Provider: María Reynolds ED Provider: Tonny Camejo Home Meds and New Rx's Prescriptions: No Action gabapentin 100 mg capsule 100 mg PO BID Paxlovid 300 mg (150 mg x 2)-100 mg tablets,dose pack See Rx Instructions PO PER PKG DIR Qty: 30 0RF Rx Instructions: PO PER PKG DIR nitrofurantoin monohyd/m-cryst 100 mg capsule 100 mg PO BID Patient Comments: TAKE 1 CAPSULE BY MOUTH TWO TIMES A DAY vitamin B complex [B Complex-Vitamin B12] Tablet 1 tab PO DAILY cholecalciferol (vitamin D3) [Vitamin D3] 50 mcg (2,000 unit) capsule 50 mcg PO DAILY C Complex 1,000 mg tablet extended release 1,000 mg PO DAILY
[2023-07-29 18:37] LABS: C Diff PCR Negative (Negative)
--- NOTE | 2023-07-29 18:50 | W.EDPROG ---
Date of service: 07/29/23 Time of Service: 18:51 Medical Decision Making Resting comfortably no acute distress. C. difficile negative. Patient tolerated p.o. Quality:SDOH Health Related Social Needs: No Data to Display Sign Out Sign Out Data: Sign Out Comment: Follow-up on C. difficile Last updated by Tonny Camejo MD at 07/29/23 16:36 Discharge Plan Disposition Patient Disposition: Home Condition: Improving Discharge Details Clinical Impression: Diarrhea Primary Care Provider: María Reynolds ED Provider: Lexx Turk Home Meds and New Rx's Prescriptions: No Action gabapentin 100 mg capsule 100 mg PO BID Paxlovid 300 mg (150 mg x 2)-100 mg tablets,dose pack See Rx Instructions PO PER PKG DIR Qty: 30 0RF Rx Instructions: PO PER PKG DIR nitrofurantoin monohyd/m-cryst 100 mg capsule 100 mg PO BID Patient Comments: TAKE 1 CAPSULE BY MOUTH TWO TIMES A DAY vitamin B complex [B Complex-Vitamin B12] Tablet 1 tab PO DAILY cholecalciferol (vitamin D3) [Vitamin D3] 50 mcg (2,000 unit) capsule 50 mcg PO DAILY C Complex 1,000 mg tablet extended release 1,000 mg PO DAILY Discharge Instructions Instructions: Acute Diarrhea (ED) Additional Instructions: Please follow-up with your primary care physician. Please return to the emergency department for any worsening symptoms.
[2023-07-30 23:50] LABS: Campylobacter PCR Negative (Negative); Salmonella PCR Negative (Negative); Shiga Toxin PCR Negative (Negative); Shigella/Enteroinvasive Ecoli Negative (Negative)
== END 2023-07-29 18:55 | disposition home or self-care (01) ==
PROVIDERS: Student in an Organized Health Care Education/Training Program; Emergency Provider Emergency Medicine; PCP Nurse Practitioner Family
DX: R19.7 Diarrhea, unspecified (principal); C90.00 Multiple myeloma not having achieved remission; Z92.21 Personal history of antineoplastic chemotherapy
CPT/HCPCS: 00123; 80053; 87493; 87505; 96360; 99284; 83735; 85025

== ENCOUNTER 2023-08-23 05:05 | Outpatient (CLI) | payer MEDICARE, SELFPAY ==
[2023-08-23 12:18] LABS: Abs Immature Grans 0.03 10^3/uL (0.0-0.06); Absolute Basophil Count 0.15 10^3/uL (0.0-0.2); Absolute Eosinophil Count 0.17 10^3/uL (0.0-0.7); Absolute Lymphocyte Count 1.59 10^3/uL (1.2-3.4); Absolute Monocyte Count 0.67 10^3/uL (0.1-0.8); Absolute Neutrophil Count 1.52 10^3/uL (1.2-6.7); Basophils % 3.6; Eosinophils % 4.1; HCT 28.1 % (36.0-46.0); HGB 9.3 g/dL (11.2-15.7); Immature Grans % 0.7; Lymphocytes % 38.5; MCH 32.9 pg (27.0-33.0); MCHC 33.1 % (32.0-36.0); MCV 99 fL (80-95); MPV 10.4 fL (8.0-11.0); Monocytes % 16.2; Neutrophils % 36.9; Platelet Count 173 10^3/uL (130-400); RBC 2.83 10^6/uL (3.93-5.22); RDW 18.4 % (11.7-14.6); RDW-SD 66.5 fL; WBC 4.13 10^3/uL (4.4-10.8)
[2023-08-23 12:43] LABS: ALT 24 U/L (14-59); AST 26 U/L (15-37); Albumin 2.3 g/dL (3.4-5.0); Alkaline Phosphatase 64 U/L (46-116); Anion Gap 10.7 mmol/L (3-11); BUN 13 mg/dL (7-18); Bilirubin, Total 0.2 mg/dL (0.2-1.0); CO2 26.3 mmol/L (21.0-32.0); CREATININE 1.1 mg/dL (0.55-1.02); Calcium 9.7 mg/dL (8.5-10.1); Chloride 95 mmol/L (98-107); Estimated GFR 48.94 (mL/min/1.73m2); Glucose 103 mg/dL (74-106); Potassium 5.3 mmol/L (3.5-5.1); Sodium 132 mmol/L (136-145); Total Protein 9.2 g/dL (6.4-8.2)
[2023-08-24 09:44] LABS: IgA 3688 mg/dL (85-499); IgG 303 mg/dL (610-1616); IgM 16 mg/dL (35-242); Kappa Free Light Chain 18.66 mg/dL (0.33-1.94); Lambda Free Light Chain 0.76 mg/dL (0.57-2.63)
[2023-08-24 13:14] LABS: Albumin 32.7 % (55.8-66.1); Comment (See Note); Monoclonal Spike 46.2 % (None Seen); Monoclonal Spike g/dL 4.3 g/dL (None Seen); Total Protein 9.2 g/dL (6.3-8.2)
== END 2023-08-23 05:06 | disposition home or self-care (01) ==
LOC: LOS 05:05
PROVIDERS: PCP Nurse Practitioner Family; Visit Provider Internal Medicine Hematology & Oncology
DX: C90.00 Multiple myeloma not having achieved remission (principal)
CPT/HCPCS: 36415; 80053; 82784; 83883; 84165; 85025

== ENCOUNTER 2023-08-31 07:23 | Outpatient (CLI) | payer MEDICARE, SELFPAY ==
[2023-08-31 12:06] LABS: LDH 151 U/L (81-234); Uric Acid 5.4 mg/dL (2.6-6.0)
== END 2023-08-31 07:24 | disposition home or self-care (01) ==
LOC: LBO 07:23
PROVIDERS: PCP Nurse Practitioner Family; Visit Provider Nurse Practitioner Family
DX: C90.00 Multiple myeloma not having achieved remission (principal)
CPT/HCPCS: 36415; 86850; 86900; 86901; 83615; 84550

== ENCOUNTER 2023-09-02 15:01 | Outpatient (REF) | payer MEDICARE, SELFPAY ==
[2023-09-02 09:11] LABS: Abs Immature Grans 0.07 10^3/uL (0.0-0.06); Absolute Basophil Count 0.06 10^3/uL (0.0-0.2); Absolute Eosinophil Count 0.27 10^3/uL (0.0-0.7); Absolute Lymphocyte Count 1.71 10^3/uL (1.2-3.4); Absolute Monocyte Count 0.45 10^3/uL (0.1-0.8); Absolute Neutrophil Count 2.03 10^3/uL (1.2-6.7); Basophils % 1.3; Eosinophils % 5.9; HCT 25.2 % (36.0-46.0); HGB 8.4 g/dL (11.2-15.7); Immature Grans % 1.5; Lymphocytes % 37.3; MCH 32.8 pg (27.0-33.0); MCHC 33.3 % (32.0-36.0); MCV 98 fL (80-95); MPV 9.9 fL (8.0-11.0); Monocytes % 9.8; Neutrophils % 44.2; Platelet Count 146 10^3/uL (130-400); RBC 2.56 10^6/uL (3.93-5.22); RDW 19.1 % (11.7-14.6); RDW-SD 68.4 fL; WBC 4.59 10^3/uL (4.4-10.8)
[2023-09-02 09:32] LABS: Diff Comment Diff Reviewed
[2023-09-02 09:33] LABS: Hypochromasia 2+
[2023-09-02 09:39] LABS: ALT 27 U/L (14-59); AST 19 U/L (15-37); Alkaline Phosphatase 44 U/L (46-116); Anion Gap 11.1 mmol/L (3-11); BUN 21 mg/dL (7-18); Bilirubin, Total 0.2 mg/dL (0.2-1.0); CO2 23.9 mmol/L (21.0-32.0); CREATININE 1.2 mg/dL (0.55-1.02); Calcium 9.2 mg/dL (8.5-10.1); Chloride 99 mmol/L (98-107); Estimated GFR 44.08 (mL/min/1.73m2); Glucose 113 mg/dL (74-106); Potassium 4.2 mmol/L (3.5-5.1); Sodium 134 mmol/L (136-145); Total Protein 9.1 g/dL (6.4-8.2)
[2023-09-02 09:45] LABS: Albumin 2.2 g/dL (3.4-5.0)
[2023-09-03 10:01] LABS: IgA 3973 mg/dL (85-499); IgG 229 mg/dL (610-1616); IgM <12 mg/dL (35-242); Kappa Free Light Chain 15.37 mg/dL (0.33-1.94); Lambda Free Light Chain <0.44 mg/dL (0.57-2.63)
[2023-09-03 14:15] LABS: Comment (See Note); Monoclonal Spike 46.4 % (None Seen); Monoclonal Spike g/dL 4.4 g/dL (None Seen); Total Protein 9.4 g/dL (6.3-8.2)
== END 2023-09-02 15:02 | disposition home or self-care (01) ==
LOC: LBN 15:01
PROVIDERS: PCP Nurse Practitioner Family; Referring Provider Internal Medicine Hematology & Oncology; Visit Provider Internal Medicine Hematology & Oncology
DX: C90.00 Multiple myeloma not having achieved remission (principal)
CPT/HCPCS: 80053; 82784; 83883; 84165; 85025

== ENCOUNTER 2023-09-15 10:39 | Inpatient (IN) | payer MEDICARE, SELFPAY ==
[2023-09-15] VITALS (80 sets, daily range): BP systolic 87–152; BP diastolic 25–114; PULSE 74–96; RESP 3–35; TEMP 36.4; O2SAT 91–100
--- NOTE | 2023-09-15 10:30 | RT.EKG_ITS ---
APPROVED REPORT Exam: Resting ECG Reason for Exam: SOB Patient Location: E HR:84 bpm ECG Measurements Heart Rate 84 AXIS CO 154 P 77 QRSd 111 QRS -36 QT 378 T 64 QTc 447 Conclusion Sinus rhythm...normal P axis, V-rate 60- 99 Left ventricular hypertrophy...multiple LVH criteria ST elevation secondary to LVH...Multiple VCG criteria Physician: no stemi, artifact
--- NOTE | 2023-09-15 10:45 | DI.CT_ITS ---
Exam(s) CT CHEST PE CTA EXAM: CT CHEST PE CTA CLINICAL HISTORY: cough, cancer, sob, recent port, concern for PE. TECHNIQUE: Imaging Protocol: Axial CT angiography was performed with multi-slice acquisition and mu lti-planar and/or 3D reconstructions. CONTRAST MATERIAL: Intravenous: Omnipaque 350 contrast volume:58 mL COMPARISON: CR XR CHEST 2V PA LATERAL from 12/31/2022 FINDINGS: Tracheobronchial tree: There is bronchiectasis seen in the left lingula left lower lobe and right low er lobe. There is peribronchial thickening. There is consolidation seen in the medial aspect of the right lower lobe. No pulmonary nodules are present. Pulmonary parenchyma: Please see the above section under tracheobronchial tree. There are areas of a telectasis in the lungs. Pulmonary Arteries: No evidence of filling defect to suggest pulmonary emboli. Mediastinum and Aby: No significant adenopathy. There is a moderate size hiatal hernia. There is t hickening of the wall of the proximal esophagus. Visualized thyroid gland: Unremarkable. Pleura: No effusion or pneumothorax. Heart: Mild cardiomegaly. Coronary artery calcification is present. No pericardial effusion. Aorta: The ascending thoracic aorta measures 3.9 x 3.7 cm. No evidence of dissection. Atheroscleroti c calcification is present. Upper abdomen: Unremarkable. Tubes, Catheters, and Lines: There is a right-sided [id number] catheter. Soft tissues: Unremarkable. Bones: Within normal limits for the patient's age.There is an old T11 compression fracture deformity. There is a central depression in the superior endplate of T10. Age-appropriate degenerative change s are seen in the spine. IMPRESSION: 1. No evidence of pulmonary embolism, thoracic aortic dissection or aneurysm. 2. Bronchiectasis and bronchial wall thickening involving the lower lobes with areas of consolidation present. Infectious or inflammatory process should be considered. 3. Thickening of the wall of the proximal esophagus with a moderate size hiatal hernia. Esophagitis should be considered. Neoplasm can not be excluded. Upper GI or upper endoscopy is recommended. Unexpected findings RADIATION DOSE DELIVERED: Total DLP DATA REPOSITORY: All CT scans at this facility are submitted to the National Radiology Data Registry (NRDR) Dose Index Registry (DIR) with the [employer] ([employer]). RADIATION OPTIMIZATION: All CT scans at this facility use at least one of these dose optimization te chniques: automated exposure control; mA and/or kV adjustment per patient size (includes targeted exa ms where dose is matched to clinical indication); or iterative reconstruction.
[2023-09-15 11:12] LABS: Bilirubin Negative (Negative); Blood Small (Negative); Clarity Cloudy (Clear); Glucose Negative (Negative); Ketones Negative (Negative); Leukocyte Esterase Large (Negative); Nitrite Negative (Negative); Specific Gravity 1.025 (1.005-1.025); Urobilinogen 0.2 mg/dL (Up to 0.2); pH 5.5 (5-8)
[2023-09-15] MEDS: Normal Saline 500 ML IV ×2 (11:15→12:02)
--- NOTE | 2023-09-15 11:15 | ED.GENADUL_ITS ---
Discharge Plan Disposition Patient Disposition: Admit to [facility] Condition: Stable Discharge Details Chief Complaint: SOB Clinical Impression: Urinary tract infection, Leukopenia, Thrombocytopenia, Bandemia, Sepsis, Pneumonia, Dehydration Primary Care Provider: María Reynolds ED Provider: Bryce Rowe Home Meds and New Rx's Prescriptions: No Action gabapentin 100 mg capsule 100 mg PO BID vitamin B complex [B Complex-Vitamin B12] Tablet 1 tab PO DAILY cholecalciferol (vitamin D3) [Vitamin D3] 50 mcg (2,000 unit) capsule 50 mcg PO DAILY C Complex 1,000 mg tablet extended release 1,000 mg PO DAILY dexamethasone 4 mg tablet 20 mg PO Q24H Patient Comments: TAKE FIVE TABLETS BY MOUTH EVERY DAY omeprazole 20 mg capsule,delayed release(DR/EC) 20 mg PO DAILY escitalopram oxalate 5 mg tablet 5 mg PO DAILY Pomalyst 2 mg capsule See Rx Instructions PO DAILY Rx Instructions: take 1 cap by mouth for 21 days orally daily; aogvnzi-pefkuarux-xqho 1 tab PO .HOS Rx Instructions: take 1 tab by mouth at bedtime HPI General Date/Time Provider Initiated Documentation: 09/15/23 10:41 . HPI Narrative: This is a pleasant 88-year-old female with a past medical history of reactive airway disease, reflux, IgA kappa multiple myeloma, previous melanoma who presents today for evaluation of chest pain, shortness of breath, fatigue, sore throat, nausea and vomiting and dehydration. Patient originally received the first 3 cycles of RVD chemotherapy and had essentially complete remission, this was a few months ago. She had a drug holiday, but unfortunately she had an IgA spike that began increasing, she started another cycle again with Revlimid and Velcade and Dex and completed cycle 6 of this. She paused therapy in early June after she developed some symptoms of anemia and shortness of breath, but eventually she again showed an increase in her myeloma markers, with concern that the disease is progressing. She has now restarted on therapy again, and is currently getting treatment with Ambar-Pom/car/Dex. Patient states that all of her symptoms have notably worsened since her last chemotherapy which was on . No complaint of hematemesis. She admits to nausea but no abdominal pain. Sore throat is mild. She denies any chest pain or pleuritic chest pain. She denies any other complaints at this time. No history of blood clots or PEs. No history of heart attack. Related Data Home Medications Medication Instructions Recorded Confirmed gabapentin 100 mg capsule 100 mg PO BID 04/06/22 09/15/23 ascorbic acid (vitamin C) 1,000 mg 1,000 mg PO DAILY 07/29/23 09/15/23 tablet,extended release (C Complex) cholecalciferol (vitamin D3) 50 50 mcg PO DAILY 07/29/23 09/15/23 mcg (2,000 unit) capsule (Vitamin D3) vitamin B complex (B 1 tab PO DAILY 07/29/23 09/15/23 Complex-Vitamin B12 tablet) eopkngh-eevhueris-vpsn 1 tab PO .HOS 09/15/23 09/15/23 dexamethasone 4 mg tablet 20 mg PO Q24H 09/15/23 09/15/23 escitalopram oxalate 5 mg tablet 5 mg PO DAILY 09/15/23 09/15/23 omeprazole 20 mg capsule,delayed 20 mg PO DAILY 09/15/23 09/15/23 release pomalidomide 2 mg capsule See Rx Instructions PO DAILY 09/15/23 09/15/23 (Pomalyst) Allergies Allergy/AdvReac Type Severity Reaction Status Date / Time amoxicillin Allergy Verified 07/29/23 12:56 cephalexin Allergy Verified 07/29/23 12:56 General Stated Complaint: SOB SMITA: 3 Review of Systems All systems reviewed & are unremarkable except as noted in HPI and below Exam Narrative Exam Narrative: 1.Const: Thin, cachectic appearing 2.Eyes: PERRL, no conjunctival injection, and symmetrical lids. 3.ENT: Atraumatic external nose and ears. Notably dry MM. Neck: Symmetric, trachea midline, No thyromegaly. 4.CVS: +S1/S2, No murmurs or gallops. Peripheral pulses 2+ and equal in all extremities. Brisk capillary refill in all extremities. 5.RESP: Rhonchorous breath sounds in the right and left lung willett. Scattered crackles. No wheezes. Chest wall demonstrates well-healing incision site with minimal redness at the site of the PowerPort. 6.GI: Soft, Nontender/Nondistended, No hepatosplenomegaly. No guarding or rebound. 7.MSK: Normocephalic/Atraumatic, Extremities w/o deformity or ttp No cyanosis or clubbing, Normal movement of all extremities 8.Skin: Warm, Dry. No rashes or lesions. 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 Sensation grossly intact, no focal neurologic deficits. 10.Psych: (AAO) x3. Appropriate mood and affect Course Vital Signs Vital signs: Vital Signs Pulse 88 09/15/23 10:53 Respiratory Rate 18 09/15/23 10:53 Blood Pressure 118/47 L 09/15/23 10:53 Pulse Oximetry 98 09/15/23 10:53 Pulse 88 09/15/23 10:53 Respiratory Rate 18 09/15/23 10:53 Blood Pressure 118/47 L 09/15/23 10:53 Pulse Oximetry 98 09/15/23 10:53 Lab/Test Results Lab/Test Results: 09/15/23 11:00 Blood Blood Culture - Pending 09/15/23 11:00 Blood Blood Culture - Pending Medical Decision Making This is a pleasant 88-year-old female with a past medical history of previous C. difficile infection, reactive airway disease, reflux, IgA kappa multiple myeloma, previous melanoma who presents today for evaluation of chest pain, shortness of breath, fatigue, sore throat, nausea and vomiting and dehydration. Patient originally received the first 3 cycles of RVD chemotherapy and had essentially complete remission, this was a few months ago. She had a drug holiday, but unfortunately she had an IgA spike that began increasing, she started another cycle again with Revlimid and Velcade and Dex and completed cycle 6 of this. She paused therapy in early June after she developed some symptoms of anemia and shortness of breath, but eventually she again showed an increase in her myeloma markers, with concern that the disease is progressing. She has now restarted on therapy again, and is currently getting treatment with Ambar-Pom/car/Dex. Patient states that all of her symptoms have notably worsened since her last chemotherapy which was on . No complaint of hematemesis. She admits to nausea but no abdominal pain. Sore throat is mild. She denies any chest pain or pleuritic chest pain. She denies any other complaints at this time. No history of blood clots or PEs. No history of heart attack. Exam demonstrates a thin cachectic female, tachypnea, cough, rhonchorous breath sounds. Vital signs demonstrate stable heart rate, but borderline low blood p ressure. Will rehydrate and start with 500 cc bolus, will evaluate for PE, ACS as there is certain concern for this. Pneumonia is also high in the differential. Will monitor closely and reassess. 1:17 PM Laboratory workup shows notable leukopenia with a white count of 1.7, she has 6 bands, neutrophil predominance, with an absolute neutrophil count of 1.39, lymphopenia, and low monocyte level. INR and PT are slightly elevated, concerning only platelets are notably low at 18. Patient's white blood count and platelet count are notably diminished compared to normal, even within the last month or so. VBG demonstrates mild respiratory alkalosis, lactate mildly elevated at 1.5. Electrolytes stable, creatinine at baseline. Troponin normal, proBNP high at 8800. Patient does not look fluid overloaded though. COVID flu and RSV are negative. CT scan shows evidence of pneumonia, no evidence of PE. There is some thickening of the proximal esophagus concerning for mild esophagitis. There is a hiatal hernia. Urinalysis shows notable UTI. Urinalysis was noted early on in the patient's assessment she was started on levofloxacin at the beginning of her care. With the pneumonia, we will add vancomycin for her neutropenic presentation of pneumonia and UTI. Will have gram-negative gram-positive/MRSA coverage as well as atypical coverage with levofloxacin. With the patient's low platelets and other symptomatology we will reach out to heme oncology for administration of potential platelets and their recommendations. Will monitor closely and reassess. 2:39 PM Discussed the case with the oncologist/plodding operator Dr. Dietrich, we reviewed the case labs and clinical presentation. Because of the patient's penicillin and cephalosporin allergy, he does agree with the utilizing vancomycin and levofloxacin. He states that if she continues to worsen, he would recommend adding aztreonam. Additionally, he feels that she should be treated otherwise as a neutropenic fever. With the platelets of 18 he does not recommend transfusion. He recommends the threshold for transfusion being 10. For the hemoglobin of 8, he does not recommend transfusion, he recommends transfusion threshold at 7. He does recommend that the patient stop her Pomalyst currently while admitted. Additionally the patient believes that she was supposed to be taking dexamethasone 20 mg every 24 hours. On review with the patient she still believes that this is what she was supposed to be doing and she states that she thinks this is what she has been doing, which is certainly more than what was pr escribed. It was recommended that she only take it during the time of chemotherapy. I do wonder if the patient is either A) confused and not actually taking it to that frequency, or B) unfortunately accurate and taking that amount which would certainly be more than needed, which may be potentially a component to her leukopenia and thrombocytopenia. Oncology recommends not taking any dexamethasone at this time and stopping it. Patient's blood pressure remains between the high 90s and low 100s. Heart rate is in the 80s. Will continue to monitor closely with plan for admission. We will reach out to the hospitalist. 2:55 PM I had a very long discussion with the patient who is quite sharp, and her daughter and friend, and through a long discussion, it appears that she has been taking the dexamethasone appropriately and has not taken it for some time. Patient remained stable, she agrees with admission. Sources of infection in addition to the pneumonia and the UTI could be the port, however it appears appropriate with good healing and minimal redness otherwise. 3:18 PM Discussed the case with the hospitalist , he agrees with the assessment and plan. Patient will be admitted. I have extensively reviewed the treatment plan with the patient. I have addressed all patient concerns at this time. I have also discussed the plan with the admitting physician and they agree with the current assessment and plan and have agreed to assume responsibility for the patient. All parties demonstrate verbal understanding and agreement with our assessment and plan at this time. The documentation in this chart was dictated using [employer] dictation software. Please excuse any dictation errors. FINDINGS: Tracheobronchial tree: There is bronchiectasis seen in the left lingula left lower lobe and right lower lobe. There is peribronchial thickening. There is consolidation seen in the medial aspect of the right lower lobe. No pulmonary nodules are present. Pulmonary parenchyma: Please see the above section under tracheobronchial tree. There are areas of atelectasis in the lungs. Pulmonary Arteries: No evidence of filling defect to suggest pulmonary emboli. Mediastinum and Aby: No significant adenopathy. There is a moderate size hiatal hernia. There is thickening of the wall of the proximal esophagus. Visualized thyroid gland: Unremarkable. Pleura: No effusion or pneumothorax. Heart: Mild cardiomegaly. Coronary artery calcification is present. No pericardial effusion. Aorta: The ascending thoracic aorta measures 3.9 x 3.7 cm. No evidence of dissection. Atherosclerotic calcification is present. Upper abdomen: Unremarkable. Tubes, Catheters, and Lines: There is a right-sided Idpolo-K-Qgbd catheter. Soft tissues: Unremarkable. Bones: Within normal limits for the patient's age.There is an old T11 compression fracture deformity. There is a central depression in the superior endplate of T10. Age-appropriate degenerative changes are seen in the spine. IMPRESSION: 1. No evidence of pulmonary embolism, thoracic aortic dissection or aneurysm. 2. Bronchiectasis and bronchial wall thickening involving the lower lobes with areas of consolidation present. Infectious or inflammatory process should be considered. 3. Thickening of the wall of the proximal esophagus with a moderate size hiatal hernia. Esophagitis should be considered. Neoplasm can not be excluded. Upper GI or upper endoscopy is recommended. Quality:[facility] Health Related Social Needs: No Data to Display Critical Care Time Critical Care Time Total Critical Care Time: 70 Attestation: Upon my evaluation, this patient had a high probability of imminent or life- threatening deterioration, which required my direct attention, intervention, and personal management. I have personally provided 70 minutes of critical care time exclusive of time spent on separately billable procedures. Time includes review of laboratory data, radiology results, discussion with consultants, and monitoring for potential decompensation. Interventions were performed as documented. PFSH All Active Problems (Updated 09/15/23 @ 15:20 by Bryce Rowe DO) Dehydration (Acute) Pneumonia (Acute) Sepsis (Acute) Bandemia (Acute) Thrombocytopenia (Chronic) Leukopenia (Acute) Urinary tract infection (Acute) COVID-19 (Acute) Social History Smoking risk assessment performed?: No
[2023-09-15 11:17] LABS: WBC >50 HPF (0-5)
[2023-09-15 11:18] LABS: C & S Indicated? Yes
[2023-09-15 11:30] LABS: BE (Venous) -2 mmol/L (-2-3); HCO3 (Venous) 22 mmol/L (23-28); O2 Sat (Venous) 95 %; TCO2 (Venous) 21 mmol/L (24-29); pCO2 (Venous) 30 mmHg (41-51); pH (Venous) 7.47 (7.31-7.41); pO2 (Venous) 67 mmHg
[2023-09-15 11:32] LABS: HCT 23.1 % (36.0-46.0); Lactate 1.5 mmol/L (0.6-1.4); MCH 33.2 pg (27.0-33.0); MCHC 34.6 % (32.0-36.0); MCV 96 fL (80-95); RBC 2.41 10^6/uL (3.93-5.22); RDW-SD 63.4 fL
[2023-09-15 11:45] LABS: WBC 1.74 10^3/uL (4.4-10.8)
[2023-09-15 11:46] LABS: INR 1.3 (0.9-1.1); PTT Activated 26.6 sec (23.6-32.8)
[2023-09-15 11:52] LABS: Absolute Eosinophil Count 0.03 10^3/uL (0.0-0.7); Absolute Lymphocyte Count 0.26 10^3/uL (1.2-3.4); Absolute Monocyte Count 0.05 10^3/uL (0.1-0.8); Absolute Neutrophil Count 1.39 10^3/uL (1.2-6.7); Bands % 6; Diff Comment Manual Differential; Platelet Count 18 10^3/uL (130-400); RBC Morphology Normal
[2023-09-15 12:00] LABS: ALT 19 U/L (14-59); AST 11 U/L (15-37); Albumin 2.2 g/dL (3.4-5.0); Alkaline Phosphatase 66 U/L (46-116); Anion Gap 12.3 mmol/L (3-11); BUN 23 mg/dL (7-18); Bilirubin, Total 0.7 mg/dL (0.2-1.0); CO2 22.7 mmol/L (21.0-32.0); CREATININE 1.2 mg/dL (0.55-1.02); Calcium 8.7 mg/dL (8.5-10.1); Chloride 97 mmol/L (98-107); Estimated GFR 44.08 (mL/min/1.73m2); Glucose 132 mg/dL (74-106); NT-proBNP 8835 pg/mL (<300); Sodium 132 mmol/L (136-145); Total Protein 7.8 g/dL (6.4-8.2); Troponin I < 50 ng/L (< or =60)
[2023-09-15] MEDS: levoFLOXacin 750 MG/150 ML BAG 100 MG IVPB (12:06)
[2023-09-15 12:12] LABS: COVID-19 PCR Negative (Negative); Influenza A PCR Negative (Negative); Influenza B PCR Negative (Negative); RSV PCR Negative (Negative)
[2023-09-15 12:13] LABS: Source Nasopharynx
[2023-09-15 12:24] LABS: Procalcitonin 0.5 ng/mL
[2023-09-15] MEDS: Normal Saline - Diluent 50 ML VIAL IJ (12:34)
[2023-09-15] MEDS: Omnipaque 350 MG/ML 100 ML BTL IJ (12:35)
[2023-09-15] MEDS: VANCOMYCIN/WATER (PEG) 1 GM/200 ML BAG IV (13:30)
[2023-09-15 15:24] LABS: Troponin I < 50 ng/L (< or =60)
[2023-09-15] MEDS: Albuterol/Ipratropium 3 ML UPD VIAL UPD ×2 (16:40→20:09)
[2023-09-15] MEDS: Lactated Ringers 1,000 ML 150 ML IV (16:57)
[2023-09-15] MEDS: Normal Saline Flush 10 ML SYR IVP ×2 (16:57→20:56)
--- NOTE | 2023-09-15 17:11 | W.PC.ACHO ---
Registration Status: ADM IN Primary Language: Preferred Language: ED Information & Data Chief Complaint SOB 09/15/23 11:33 Chief Complaint SOB 09/15/23 11:16 Triage Note sore throat, SOB, cough, 09/15/23 10:53 weakness, N/V Most Recent Vital Signs Temperature 36.4 C L 09/15/23 16:25 Temperature Source Temporal Artery Scan 09/15/23 16:25 Pulse 79 09/15/23 16:25 Pulse 77 09/15/23 16:01 Respiratory Rate 21 09/15/23 16:25 Respiratory Effort Short of Breath 09/15/23 16:25 Respiratory Depth Normal 09/15/23 16:25 Respiratory Pattern Normal 09/15/23 16:25 Blood Pressure 111/42 L 09/15/23 16:25 Blood Pressure Mean 65 09/15/23 16:25 Blood Pressure Position Supine 09/15/23 16:25 Pulse Oximetry 92 09/15/23 16:25 Oxygen Delivery Method Room Air 09/15/23 16:25 Oxygen Flow Rate 0 09/15/23 16:25 Allergies amoxicillin Allergy (Verified 07/29/23 12:56) cephalexin Allergy (Verified 07/29/23 12:56) Precautions Isolation Standard precaution 09/15/23 11:33 Active Medications Generic Name Dose Route Start Last Admin Trade Name Freq PRN Reason Stop Dose Admin Ringer's Solution 1,000 mls @ 150 mls/hr 09/15/23 16:02 09/15/23 16:57 IV 09/15/23 22:41 150 mls/hr INFUSION MARIA M Administration Iohexol 100 ml 09/15/23 12:45 09/15/23 12:35 Omnipaque 350 Mg/Ml 100 Ml Btl IJ 10/15/23 23:59 58 ml DIRECTED MARIA M Administration Sodium Chloride 50 ml 09/15/23 12:45 09/15/23 12:34 Normal Saline - Diluent 50 Ml Vial IJ 50 ml .FOR DI USE MARIA M Administration Sodium Chloride 0 ml 09/15/23 16:23 09/15/23 16:57 Normal Saline Flush 10 Ml Syr IVP 10 ml PRN PRN Administration IV IV Catheter Type [Right Peripheral IV Forearm] IV Catheter Gauge [Right 18 Forearm] Diet Orders Category Date Time Status Regular/Normal [DIET] Nutrition 09/15/23 Dinner Active Diagnostics 0309/15/23 09/15/23 Range/Units 15:01 11:24 11:20 WBC (4.4-10.8) 10^3/uL RBC (3.93-5.22) 10^6/uL Hgb (11.2-15.7) g/dL Hct (36.0-46.0) % MCV (80-95) fL MCH (27.0-33.0) pg MCHC (32.0-36.0) % RDW (11.7-14.6) % Plt Count (130-400) 10^3/uL MPV (8.0-11.0) fL Immature Gran % Neutrophils % Band Neutrophils % Lymphocytes % Monocytes % Eosinophils % Basophils % Nucleated RBC % (0.0-0.3) % Absolute Neutrophils (1.2-6.7) 10^3/uL Absolute Lymphocytes (1.2-3.4) 10^3/uL Absolute Monocytes (0.1-0.8) 10^3/uL Absolute Eosinophils (0.0-0.7) 10^3/uL Absolute Basophils (0.0-0.2) 10^3/uL RBC Morphology PT (9.1-11.1) sec INR (0.9-1.1) APTT Cancelled (23.6-32.8) sec VBG pH 7.47 H (7.31-7.41) VBG pCO2 30 L (41-51) mmHg VBG pO2 67 mmHg VBG HCO3 22 L (23-28) mmol/L VBG Total CO2 21 L (24-29) mmol/L VBG O2 Saturation 95 % VBG Base Excess -2 (-2-3) mmol/L VBG Lactate 1.5 H (0.6-1.4) mmol/L Sodium 132 L (136-145) mmol/L Potassium 4.0 (3.5-5.1) mmol/L Chloride 97 L (98-107) mmol/L Carbon Dioxide 22.7 (21.0-32.0) mmol/L Anion Gap 12.3 H (3-11) mmol/L BUN 23 H (7-18) mg/dL Creatinine 1.2 H (0.55-1.02) mg/dL Est GFR (CKD-EPI 2020) 44.08 (mL/min/1.73m2) Glucose 132 H (74-106) mg/dL Calcium 8.7 (8.5-10.1) mg/dL Total Bilirubin 0.7 (0.2-1.0) mg/dL AST 11 L (15-37) U/L ALT 19 (14-59) U/L Alkaline Phosphatase 66 (46-116) U/L Troponin I < 50 < 50 (< or =60) ng/L NT-Pro-B Natriuret Pep 8835 H (<300) pg/mL Total Protein 7.8 (6.4-8.2) g/dL Total Protein (PEP) Pending Albumin 2.2 L (3.4-5.0) g/dL Albumin % (PEP) Pending Albumin (PEP) Pending Qhgnn-2-Igtvsfwub Pending Shmyz-0-Nofokbqsw (%) Pending Ivfaz-2-Ysvdnuzao Pending Njukl-4-Zxhyuxogi (%) Pending Beta Globulins (%) Pending Beta Gamma Globulin Pending Gamma Globulins Pending Gamma Globulins (%) Pending M-Malcolm Pending M-Malcolm % Pending PEP Comment Pending Procalcitonin 0.5 ng/mL TSH 0.90 (0.36-3.74) uIU/mL Urine Color (Yellow) Urine Clarity (Clear) Urine pH (5-8) Ur Specific Jewett (1.005-1.025) Urine Protein (Neg-Trace) mg/dL Urine Ketones (Negative) mg/dL Urine Blood (Negative) Urine Nitrite (Negative) Urine Bilirubin (Negative) Urine Urobilinogen (Up to 0.2) mg/dL Ur Leukocyte Esterase (Negative) Urine RBC Urine WBC (0-5) HPF Ur Epithelial Cells Urine Crystals Urine Bacteria Urine Mucus Ur Culture Indicated? Urine Glucose (Negative) mg/dL IgG Pending IgA Pending IgM Pending Free [place] LC, Quant Pending Free Lambda LC, Quant Pending Free [place]/Lambda Ratio Pending COVID-19 Source Nasopharynx SARS-CoV-2 (PCR) Negative (Negative) Influenza Type A (PCR) Negative (Negative) Influenza Type B (PCR) Negative (Negative) RSV (PCR) Negative (Negative) 09/15/23 09/15/23 Range/Units 11:20 10:53 WBC 1.74 L* (4.4-10.8) 10^3/uL RBC 2.41 L (3.93-5.22) 10^6/uL Hgb 8.0 L (11.2-15.7) g/dL Hct 23.1 L (36.0-46.0) % MCV 96 H (80-95) fL MCH 33.2 H (27.0-33.0) pg MCHC 34.6 (32.0-36.0) % RDW 18.0 H (11.7-14.6) % Plt Count 18 L* (130-400) 10^3/uL MPV (8.0-11.0) fL Immature Gran % 0.0 Neutrophils % 74.0 Band Neutrophils % 6 Lymphocytes % 15.0 Monocytes % 3.0 Eosinophils % 2.0 Basophils % 0.0 Nucleated RBC % 0.0 (0.0-0.3) % Absolute Neutrophils 1.39 (1.2-6.7) 10^3/uL Absolute Lymphocytes 0.26 L (1.2-3.4) 10^3/uL Absolute Monocytes 0.05 L (0.1-0.8) 10^3/uL Absolute Eosinophils 0.03 (0.0-0.7) 10^3/uL Absolute Basophils 0.00 (0.0-0.2) 10^3/uL RBC Morphology Normal PT 13.0 H (9.1-11.1) sec INR 1.3 H (0.9-1.1) APTT 26.6 (23.6-32.8) sec VBG pH (7.31-7.41) VBG pCO2 (41-51) mmHg VBG pO2 mmHg VBG HCO3 (23-28) mmol/L VBG Total CO2 (24-29) mmol/L VBG O2 Saturation % VBG Base Excess (-2-3) mmol/L VBG Lactate (0.6-1.4) mmol/L Sodium (136-145) mmol/L Potassium (3.5-5.1) mmol/L Chloride (98-107) mmol/L Carbon Dioxide (21.0-32.0) mmol/L Anion Gap (3-11) mmol/L BUN (7-18) mg/dL Creatinine (0.55-1.02) mg/dL Est GFR (CKD-EPI 2020) (mL/min/1.73m2) Glucose (74-106) mg/dL Calcium (8.5-10.1) mg/dL Total Bilirubin (0.2-1.0) mg/dL AST (15-37) U/L ALT (14-59) U/L Alkaline Phosphatase (46-116) U/L Troponin I (< or =60) ng/L NT-Pro-B Natriuret Pep (<300) pg/mL Total Protein (6.4-8.2) g/dL Total Protein (PEP) Albumin (3.4-5.0) g/dL Albumin % (PEP) Albumin (PEP) Ezask-9-Iglstpsbg Xanho-4-Nzdchopdm (%) Vdzle-1-Ovjgvcsnp Gnvqr-0-Blcpedvma (%) Beta Globulins (%) Beta Gamma Globulin Gamma Globulins Gamma Globulins (%) M-Malcolm M-Malcolm % PEP Comment Procalcitonin ng/mL TSH (0.36-3.74) uIU/mL Urine Color Yellow (Yellow) Urine Clarity Cloudy (Clear) Urine pH 5.5 (5-8) Ur Specific Jewett 1.025 (1.005-1.025) Urine Protein 100 H (Neg-Trace) mg/dL Urine Ketones Negative (Negative) mg/dL Urine Blood Small H (Negative) Urine Nitrite Negative (Negative) Urine Bilirubin Negative (Negative) Urine Urobilinogen 0.2 (Up to 0.2) mg/dL Ur Leukocyte Esterase Large H (Negative) Urine RBC Not Applicable Urine WBC >50 H (0-5) HPF Ur Epithelial Cells Not Applicable Urine Crystals Not Applicable Urine Bacteria Not Applicable Urine Mucus Not Applicable Ur Culture Indicated? Yes Urine Glucose Negative (Negative) mg/dL IgG IgA IgM Free [place] LC, Quant Free Lambda LC, Quant Free [place]/Lambda Ratio COVID-19 Source SARS-CoV-2 (PCR) (Negative) Influenza Type A (PCR) (Negative) Influenza Type B (PCR) (Negative) RSV (PCR) (Negative) 09/15/23 11:50 Blood Culture - Pending Blood 09/15/23 11:20 Blood Culture - Pending Blood 09/15/23 10:53 Urine Culture - Pending Urine - Reflex from Ua Intake and Output - 24 Hour Total 09/15/23 10:39 thru 09/15/23 16:25 Intake Total 1350 Output Total 700 Balance 650 Weight 54.7 kg Intake: IV 1350 Output: Urine 700 Other: # Voids 1 Falls Risk Assessment History of Falls Previous History 09/15/23 16:25 Contributing Factors Unstable 09/15/23 16:25 Ambulatory Aids Independent 09/15/23 16:25 Tubes/Lines W/no contributing factors 09/15/23 16:25 Gait Evaluation W/no contributing factors 09/15/23 16:25 Cognition No cognitive impairment 09/15/23 16:25 Fall Total Score 38 09/15/23 16:25 Level of Risk Moderate Risk 09/15/23 16:25 v v v v v v v v v Sending and/or Receiving Nurses: Please use comment section below to note any information pertinent to the patient hand-off not included above. Information / Comments: Chemo last . New port placed R chest wall 09/07- not accessed. AAOx4. 1 assist w/ walker. Was potentially taking incorrect dose of dexamethasone at home. Report received from:Ayanna Mackay
--- NOTE | 2023-09-15 17:27 | HPE_ITS ---
Date of service: 09/15/23 Time of Service: 17:28 Assessment and Plan Assessment and plan (1) Sepsis: Status: Acute Assessment and plan: 88-year-old female with history of relapsing multiple myeloma just had her sixth round of chemotherapy including Ambar-Pom/car/Dex. Who presents with nausea and vomiting after her last chemotherapy treatment last week along with progressive shortness of breath found to have evidence of urinary tract infection as well as bibasilar pneumonia on CT scan. Patient is being treated as neutropenic sepsis although her ANC is above 1000 nevertheless she has significant pancytopenia with thrombocytopenia anemia and significant lymphocytopenia and monocytopenia. Blood and urine cultures have been obtained and patient has been started on broad-spectrum antibiotics including Levaquin and vancomycin. Sputum culture has been ordered as well as urine for Legionella and strep antigen and sputum for mycoplasma. Of note patient has elevated proBNP and has some significant peripheral lower extremity edema. She has no history of congestive heart failure. She presented mildly azotemic and was resuscitated with 1 L of normal saline and I ordered LR at 150 mL an hour for another liter but will stop at 500 mL as her IVC does appear to be dilated on [id number] ultrasound. Patient mean arterial blood pressure does not remain above 65 mm then she should be started on norepinephrine for pressure support. We will monitor her pancytopenia and transfuse for hemoglobin below 7 g her platelets if they drop below 10,000. As per recommendations from heme-onc at [facility]. Qualifiers: Sepsis type: sepsis due to unspecified organism Sepsis acute organ dysfunction status: without acute organ dysfunction Qualified Code(s): A41.9 - Sepsis, unspecified organism (2) Pneumonia: Status: Acute Assessment and plan: Antibiotics as above. Will place her on scheduled doses of DuoNeb bronchodilators qid and albuterol every 2 as needed. Encourage pulmonary toiletry with I-S and Acapella. Sputum cultures as noted above. Monitor oxygen saturation and support as needed. Qualifiers: Pneumonia type: due to unspecified organism Laterality: bilateral Lung location: lower lobe of lung Qualified Code(s): J18.9 - Pneumonia, unspecified organism (3) Urinary tract infection: Status: Acute Assessment and plan: Antibiotics as above Qualifiers: Urinary tract infection type: acute cystitis Hematuria presence: w ithout hematuria Qualified Code(s): N30.00 - Acute cystitis without hematuria (4) Multiple myeloma in relapse: Status: Acute (5) Dehydration: Status: Acute Assessment and plan: Patient will complete sepsis guidelines of 30 mL/kg fluid bolus then we will stop IV fluids at that point and monitor her blood pressure urinary output. If her urine output drops off and her maps are below 65 she should and norepinephrine started. (6) Thrombocytopenia: Status: Chronic Assessment and plan: use SCD for dvt prophylaxis; avoid chemoprophylaxis in light of her low plateletes (7) Leukopenia: Status: Acute Qualifiers: Leukopenia type: lymphocytopenia Qualified Code(s): D72.810 - Lymphocytopenia (8) Anemia: Status: Chronic Qualifiers: Anemia type: unspecified type Qualified Code(s): D64.9 - Anemia, unspecified History of Present Illness History of Present Illness Chief Complaint: sore throat, cough, weakness N arrative: 88 yr old female w/ hx of current Iga kappa MM, melanoma in past. She had prior treatment of her MM w/ first 3 cycles of Revlimid, Velcade and dexamethasone (RVD) chemotherapy and had her multiple myeloma w/ a complete response. She was on a drug holiday but developed an IgA spike and was started on another cycle of RVD completing cycle 6. Her chemotherapy was put on pause d/t side effects of worsening anemia but when her markers started to rise again, she was started on treatment w/ Daratumumab, pomalidomide, and dexamethasone and carfilzomib (note I am extrapolating what I believe her current chemo regimen since I do not have access to her [facility] records and I am going off Dr. Rowe's notes and he abbreviated her current chemo as follows: Ambar-Pom/car/Dex. Patient presented to the E.D. today because of symptoms of sore throat, nausea and vomiting and dyspnea. Her symptoms began after her last cycle of chemotherapy which was on 09/08. Evaluation in the E.D. included labs (CBC: pancytopenia WBC 1,740 w/ ANC 1390, lymphs 260, monocytes 50, platelets 18,000, CMP BUN 23, creatinine 1.2, AG 12, Na 132, transaminases and bili normal. Troponin I normal x 2 sets, BNP 8835, procalcitonin 0.5, TSH normal 0.9. Protime 13, INR 1.3, aPTT normal 26. UA abnormal w/ large leukocyte esterase, small blood, 100 mg/dL protein, WBC >50, unable to determine bacteria d/t so many wbc obscures gram stain. Fluvid swab was negative for influenza A&B, SARS-COV2 and RSV. Imaging included chest CT w/ contrast for PE study. this demonstrated the following: IMPRESSION: 1. No evidence of pulmonary embolism, thoracic aortic dissection or aneurysm. 2. Bronchiectasis and bronchial wall thickening involving the lower lobes with areas of consolidation present. Infectious or inflammatory process should be considered. 3. Thickening of the wall of the proximal esophagus with a moderate size hiatal hernia. Esophagitis should be considered. Neoplasm can not be excluded. Upper GI or upper endoscopy is recommended. Blood and urine cultures were sent and patient was begun on Vancomycin and Levaquin d/t her allergies to amoxacilin and cephalexin.Patient required two boluses of normal saline 500 mL each d/t mild hypotension and evidence of dehydration. [facility] oncology was contacted by Dr. Rowe, See Dr. Rowe's notes. Dr. Dietrich from [facility] heme/onc reesponded and he agreed w/ use of Levaquin and Vancomycin but if she worsens then add Aztreonam. He advised treating her as if she were neutropenic even though her ANC is still over 1000. He also recommended holding her Pomalyst and not giving her dexamethasone (she was taking all along when she was only suppose to take this while doing her chemotherapy cycles and the dose stated is higher than prescribed. Oncology recommends not giving her dexamethasone. It may be contributing to her pancytopenia. (My note on this recommendation is that if she in fact has been taking dexa at this level of 20 mg daily then she may be adrenal suppressed and may need adrenal support w/ corticosteroids while she is septic). He did not recommend transfusion of platelets unless she drops < 10,000 and no PRBC unless she falls below 7 gm. Addendum: Dr. Rowe documented and extensive conversation w/ the patient and her daughter and they report she has not been taking the dexamethasone all along but has been dosing w/ her chemotherapy as prescribed. Although patient's BP responded to iv fluids, it was felt she should be monitored in the ICU for possible development of worsening sepsis w/ shock, although she is not in shock at present. Review of Systems Constitutional Constitutional: Reports chills, Reports fatigue, Reports lethargy and Reports poor appetite ENT Ears, Nose, Mouth, and Throat: Reports dysphagia, Reports dry mouth, Reports hoarseness and Reports sore throat Cardiovascular Cardiovascular: Reports system reviewed and no additional complaints, except as documented, Denies chest pain, Reports dyspnea and Reports dyspnea on exertion Respiratory Respiratory: Reports chest congestion, Reports dyspnea and Reports dyspnea on exertion Gastrointestinal Gastrointestinal: Reports dysphagia, Reports heartburn, Denies diarrhea, Reports nausea and Reports vomiting Genitourinary Genitourinary: Denies hematuria and Reports dysuria Musculoskeletal Musculoskeletal: Reports system reviewed and no additional complaints, except as documented Integumentary/Breasts Skin/Breast: Reports system reviewed and no additional complaints, except as documented Neurologic Neurologic: Reports system reviewed and no additional complaints, except as documented Psychiatric Psychiatric: Reports system reviewed and no additional complaints, except as documented Endocrine Endocrine: Reports fatigue Hematologic/Lymphatic Hematologic/Lymphatic: Reports easy bruising PFSH All Active Problems (Updated 09/15/23 @ 18:54 by Issa Perea MD) Multiple myeloma in relapse (Acute) Anemia (Chronic) Dehydration (Acute) Pneumonia (Acute) Sepsis (Acute) Bandemia (Acute) Thrombocytopenia (Chronic) Leukopenia (Acute) Urinary tract infection (Acute) Medical History (Updated 09/15/23 @ 18:54 by Issa Perea MD) COVID-19 Social History Smoking risk assessment performed?: No Housing: other Meds Allergies and Home Medications Allergies Allergy/AdvReac Type Severity Reaction Status Date / Time amoxicillin Allergy Verified 07/29/23 12:56 cephalexin Allergy Verified 07/29/23 12:56 Home Medications Medication Instructions Recorded Confirmed Type gabapentin 100 mg capsule 100 mg PO BID 04/06/22 09/15/23 History ascorbic acid (vitamin C) 1,000 mg 1,000 mg PO DAILY 07/29/23 09/15/23 History tablet,extended release (C Complex) cholecalciferol (vitamin D3) 50 50 mcg PO DAILY 07/29/23 09/15/23 History mcg (2,000 unit) capsule (Vitamin D3) vitamin B complex (B 1 tab PO DAILY 07/29/23 09/15/23 History Complex-Vitamin B12 tablet) [id number] 1 tab PO .HOS 09/15/23 09/15/23 History dexamethasone 4 mg tablet 20 mg PO Q24H 09/15/23 09/15/23 History escitalopram oxalate 5 mg tablet 5 mg PO DAILY 09/15/23 09/15/23 History omeprazole 20 mg capsule,delayed 20 mg PO DAILY 09/15/23 09/15/23 History release pomalidomide 2 mg capsule See Rx Instructions PO DAILY 09/15/23 09/15/23 History (Pomalyst) Results Imaging CT scan - chest: report reviewed Labs 09/15/23 11:20 09/15/23 11:20 Labs: Laboratory Results - last 24 hr 09/15/23 09/15/23 09/15/23 10:53 11:20 11:20 WBC 1.74 L* RBC 2.41 L Hgb 8.0 L Hct 23.1 L MCV 96 H MCH 33.2 H MCHC 34.6 RDW 18.0 H Plt Count 18 L* MPV Immature Gran % 0.0 Neutrophils % 74.0 Band Neutrophils % 6 Lymphocytes % 15.0 Monocytes % 3.0 Eosinophils % 2.0 Basophils % 0.0 Nucleated RBC % 0.0 Absolute Neutrophils 1.39 Absolute Lymphocytes 0.26 L Absolute Monocytes 0.05 L Absolute Eosinophils 0.03 Absolute Basophils 0.00 RBC Morphology Normal PT 13.0 H INR 1.3 H APTT 26.6 Cancelled VBG pH 7.47 H VBG pCO2 30 L VBG pO2 67 VBG HCO3 22 L VBG Total CO2 21 L VBG O2 Saturation 95 VBG Base Excess -2 VBG Lactate 1.5 H Sodium 132 L Potassium 4.0 Chloride 97 L Carbon Dioxide 22.7 Anion Gap 12.3 H BUN 23 H Creatinine 1.2 H Est GFR (CKD-EPI 2020) 44.08 Glucose 132 H Calcium 8.7 Total Bilirubin 0.7 AST 11 L ALT 19 Alkaline Phosphatase 66 Troponin I < 50 NT-Pro-B Natriuret Pep 8835 H Total Protein 7.8 Albumin 2.2 L Procalcitonin 0.5 TSH 0.90 Urine Color Yellow Urine Clarity Cloudy Urine pH 5.5 Ur Specific [place] 1.025 Urine Protein 100 H Urine Ketones Negative Urine Blood Small H Urine Nitrite Negative Urine Bilirubin Negative Urine Urobilinogen 0.2 Ur Leukocyte Esterase Large H Urine RBC Not Applicable Urine WBC >50 H Ur Epithelial Cells Not Applicable Urine Crystals Not Applicable Urine Bacteria Not Applicable Urine Mucus Not Applicable Ur Culture Indicated? Yes Urine Glucose Negative COVID-19 Source SARS-CoV-2 (PCR) Influenza Type A (PCR) Influenza Type B (PCR) RSV (PCR) 09/15/23 09/15/23 11:24 15:01 WBC RBC Hgb Hct MCV MCH MCHC RDW Plt Count MPV Immature Gran % Neutrophils % Band Neutrophils % Lymphocytes % Monocytes % Eosinophils % Basophils % Nucleated RBC % Absolute Neutrophils Absolute Lymphocytes Absolute Monocytes Absolute Eosinophils Absolute Basophils RBC Morphology PT INR APTT VBG pH VBG pCO2 VBG pO2 VBG HCO3 VBG Total CO2 VBG O2 Saturation VBG Base Excess VBG Lactate Sodium Potassium Chloride Carbon Dioxide Anion Gap BUN Creatinine Est GFR (CKD-EPI 2020) Glucose Calcium Total Bilirubin AST ALT Alkaline Phosphatase Troponin I < 50 NT-Pro-B Natriuret Pep Total Protein Albumin Procalcitonin TSH Urine Color Urine Clarity Urine pH Ur Specific [place] Urine Protein Urine Ketones Urine Blood Urine Nitrite Urine Bilirubin Urine Urobilinogen Ur Leukocyte Esterase Urine RBC Urine WBC Ur Epithelial Cells Urine Crystals Urine Bacteria Urine Mucus Ur Culture Indicated? Urine Glucose COVID-19 Source Nasopharynx SARS-CoV-2 (PCR) Negative Influenza Type A (PCR) Negative Influenza Type B (PCR) Negative RSV (PCR) Negative Last Vital Signs Temp 36.4 C L 09/15/23 16:25 Pulse 84 09/15/23 17:10 Resp 18 09/15/23 17:10 BP 98/43 L 09/15/23 17:04 Pulse Ox 94 09/15/23 17:10 Time Spent Time spent with Patient: >75 minutes Time was spent: preparing to see the patient(eg.review tests), obtaining and/or reviewing separately otained hiistory, ordering medications,tests, procedures, referring, communicating with other health child day care center worker, indepentently interpreting results, counseling the patient and care coordination
[2023-09-15 19:31] LABS: MRSA PCR Negative (Negative)
[2023-09-15] MEDS: VANCOMYCIN/WATER (PEG) 750 MG/150 ML BAG 150 MG IV (20:55)
[2023-09-15] MEDS: Melatonin 3 MG TAB PO (21:11)
[2023-09-15] MEDS: Gabapentin 100 MG CAP PO (21:11)
[2023-09-16] VITALS (63 sets, daily range): BP systolic 82–149; BP diastolic 32–134; PULSE 73–99; RESP 2–30; TEMP 36.3–37.8; O2SAT 93–100
[2023-09-16] MEDS: Gabapentin 100 MG CAP PO ×2 (07:29→19:26)
[2023-09-16] MEDS: Omeprazole 20 MG CAPCR PO (07:29)
[2023-09-16] MEDS: Albuterol/Ipratropium 3 ML UPD VIAL UPD ×3 (09:00→19:41)
[2023-09-16 09:32] LABS: ALT 15 U/L (14-59); AST 7 U/L (15-37); Albumin 2.1 g/dL (3.4-5.0); Alkaline Phosphatase 61 U/L (46-116); Anion Gap 12.7 mmol/L (3-11); BUN 21 mg/dL (7-18); Bilirubin, Total 0.5 mg/dL (0.2-1.0); CO2 21.3 mmol/L (21.0-32.0); CREATININE 1.1 mg/dL (0.55-1.02); Calcium 8.1 mg/dL (8.5-10.1); Chloride 101 mmol/L (98-107); Estimated GFR 48.94 (mL/min/1.73m2); Glucose 134 mg/dL (74-106); Sodium 135 mmol/L (136-145); Total Protein 7.2 g/dL (6.4-8.2)
[2023-09-16 09:33] LABS: Vancomycin, Random 17.5 ug/mL
[2023-09-16] MEDS: Cholecalciferol (Vitamin D3) 1,000 UNIT TAB 2000 UNITS PO (09:34)
[2023-09-16] MEDS: Vitamins B Comp w/C TAB 1 TAB PO (09:34)
[2023-09-16] MEDS: Escitalopram 10 MG TAB 5 MG PO (09:34)
[2023-09-16] MEDS: Ascorbic Acid 500 MG TAB 1000 MG PO (09:35)
[2023-09-16 09:53] LABS: IgA 2300 mg/dL (85-499); IgG 198 mg/dL (610-1616); IgM <12 mg/dL (35-242); Lambda Free Light Chain <0.44 mg/dL (0.57-2.63)
[2023-09-16] MEDS: Normal Saline Flush 10 ML SYR IVP ×2 (09:54→19:26)
--- NOTE | 2023-09-16 10:51 | PGE_ITS ---
Date of Service Date of service: 09/16/23 Time of Service: 10:51 Assessment and Plan Assessment and plan (1) Sepsis: Status: Acute Assessment and plan: 88-year-old female with history of relapsing multiple myeloma just had her sixth round of chemotherapy including Ambar-Pom/car/Dex. Who presents with nausea and vomiting after her last chemotherapy treatment last week along with progressive shortness of breath found to have evidence of urinary tract infection as well as bibasilar pneumonia on CT scan. Patient is being treated as neutropenic sepsis although her ANC is above 1000 nevertheless she has significant pancytopenia with thrombocytopenia anemia and significant lymphocytopenia and monocytopenia. blood cultures pending from yesterday, sputum was sent and gram stain w/ rare mixed GP mateo, no predominant, many WBC, no epithelial cells. Patient remains on Levaquin and Vancomycin. MRSA screen is negative. Urine legionella and Strep antigens and mycoplasma studies are pending. BP are on the soft side, I will resume iv fluids given she is not taking adequate po d/t her odynophagia. Critical care time spent interviewing and examining the patient, reviewing studies, discussing case with patient's nurse and consulting physicians was 30 minutes Qualifiers: Sepsis acute organ dysfunction status: without acute organ dysfunction Sepsis type: sepsis due to unspecified organism Qualified Code(s): A41.9 - Se psis, unspecified organism (2) Pneumonia: Status: Acute Assessment and plan: Antibiotics as above. Will place her on scheduled doses of DuoNeb bronchodilators qid and albuterol every 2 as needed. Encourage pulmonary toiletry with I-S and Acapella. Surprisingly her oxygen saturations have been very good on room air, she was 100% when I was examining her. Qualifiers: Laterality: bilateral Lung location: lower lobe of lung Pneumonia type: due to unspecified organism Qualified Code(s): J18.9 - Pneumonia, unspecified organism (3) Urinary tract infection: Status: Acute Assessment and plan: Antibiotics as above Qualifiers: Hematuria presence: without hematuria Urinary tract infection type: acute cystitis Qualified Code(s): N30.00 - Acute cystitis without hematuria (4) Multiple myeloma in relapse: Status: Acute Assessment and plan: holding Daratumumab, pomalidomide, and dexamethasone and carfilzomi while being treated for her infection. (5) Dehydration: Status: Acute Assessment and plan: resume iv fluids as she is not taking enough in orally. monitor urine output, BP, intake and output (6) Thrombocytopenia: Status: Chronic Assessment and plan: use SCD for dvt prophylaxis; avoid chemoprophylaxis in light of her low plateletes (7) Leukopenia: Status: Acute Assessment and plan: monitor daily labs Qualifiers: Leukopenia type: lymphocytopenia Qualified Code(s): D72.810 - Lymphocytopenia (8) Anemia: Status: Chronic Assessment and plan: monitor daily CBC, transfuse prn Hb <7 gm or for acute bleeding. Qualifiers: Anemia type: unspecified type Qualified Code(s): D64.9 - Anemia, unspecified (9) GERD without esophagitis: Status: Suspected Assessment and plan: I have put her on Protonix and added carafate. I did not seen any thrush when I examined her mouth on admisison but will empirically put her on nystatin swish and swallow and cover w/ Diflucan. I would consult surgery regarding EGD however, she is not candidate for any invasive proceduer currently d/t her pancytopenia and sepsis. Will refer her upon discharge. Subjective Subjective Interval history since last seen: Yolie is coughing up purulent sputum. Nursing sent for culture. She is complaining of sore throat and odynophagia. She has evidence of esophagitis on her CT scan of her chest. I have down graded her diet to minced and moist w/ thin liquids at suggestive of her [employer]. BP has been borderline but w/ manual BP her MAP have been in mid 60's. SBP has been in mid 90's to 100. Exam Narrative Exam Narrative: Alert and oriented x 3, harsh cough, complaining of sore throat Chest/lungs: coarse rhonchi and bibasilar rales Heart: RRR, soft systolic murmur at apex c/w MR Abdomen: soft, nondistended, nontender Extremities: 1+ bilateral lower extremity edema lower tibia and ankles and feet Objective Last Vital Signs Temp 36.6 C 09/16/23 09:25 Pulse 79 09/16/23 09:49 Resp 19 09/16/23 09:49 BP 105/42 L 09/16/23 09:49 Pulse Ox 95 09/16/23 09:49 Laboratory Results - last 24 hr 09/15/23 09/15/23 09/15/23 10:53 11:20 11:20 WBC 1.74 L* RBC 2.41 L Hgb 8.0 L Hct 23.1 L MCV 96 H MCH 33.2 H MCHC 34.6 RDW 18.0 H Plt Count 18 L* MPV Immature Gran % 0.0 Neutrophils % 74.0 Band Neutrophils % 6 Lymphocytes % 15.0 Monocytes % 3.0 Eosinophils % 2.0 Basophils % 0.0 Nucleated RBC % 0.0 Absolute Neutrophils 1.39 Absolute Lymphocytes 0.26 L Absolute Monocytes 0.05 L Absolute Eosinophils 0.03 Absolute Basophils 0.00 RBC Morphology Normal PT 13.0 H INR 1.3 H APTT 26.6 Cancelled VBG pH 7.47 H VBG pCO2 30 L VBG pO2 67 VBG HCO3 22 L VBG Total CO2 21 L VBG O2 Saturation 95 VBG Base Excess -2 VBG Lactate 1.5 H Sodium 132 L Potassium 4.0 Chloride 97 L Carbon Dioxide 22.7 Anion Gap 12.3 H BUN 23 H Creatinine 1.2 H Est GFR (CKD-EPI 2020) 44.08 Glucose 132 H Calcium 8.7 Total Bilirubin 0.7 AST 11 L ALT 19 Alkaline Phosphatase 66 Troponin I < 50 NT-Pro-B Natriuret Pep 8835 H Total Protein 7.8 Albumin 2.2 L Procalcitonin 0.5 TSH 0.90 Urine Color Yellow Urine Clarity Cloudy Urine pH 5.5 Ur Specific [place] 1.025 Urine Protein 100 H Urine Ketones Negative Urine Blood Small H Urine Nitrite Negative Urine Bilirubin Negative Urine Urobilinogen 0.2 Ur Leukocyte Esterase Large H Urine RBC Not Applicable Urine WBC >50 H Ur Epithelial Cells Not Applicable Urine Crystals Not Applicable Urine Bacteria Not Applicable Urine Mucus Not Applicable Ur Culture Indicated? Yes Urine Glucose Negative Random Vancomycin COVID-19 Source SARS-CoV-2 (PCR) Influenza Type A (PCR) Influenza Type B (PCR) RSV (PCR) MRSA (TEM-PCR) 09/15/23 09/15/23 09/15/23 11:24 15:01 17:02 WBC RBC Hgb Hct MCV MCH MCHC RDW Plt Count MPV Immature Gran % Neutrophils % Band Neutrophils % Lymphocytes % Monocytes % Eosinophils % Basophils % Nucleated RBC % Absolute Neutrophils Absolute Lymphocytes Absolute Monocytes Absolute Eosinophils Absolute Basophils RBC Morphology PT INR APTT VBG pH VBG pCO2 VBG pO2 VBG HCO3 VBG Total CO2 VBG O2 Saturation VBG Base Excess VBG Lactate Sodium Potassium Chloride Carbon Dioxide Anion Gap BUN Creatinine Est GFR (CKD-EPI 2020) Glucose Calcium Total Bilirubin AST ALT Alkaline Phosphatase Troponin I < 50 NT-Pro-B Natriuret Pep Total Protein Albumin Procalcitonin TSH Urine Color Urine Clarity Urine pH Ur Specific [place] Urine Protein Urine Ketones Urine Blood Urine Nitrite Urine Bilirubin Urine Urobilinogen Ur Leukocyte Esterase Urine RBC Urine WBC Ur Epithelial Cells Urine Crystals Urine Bacteria Urine Mucus Ur Culture Indicated? Urine Glucose Random Vancomycin COVID-19 Source Nasopharynx SARS-CoV-2 (PCR) Negative Influenza Type A (PCR) Negative Influenza Type B (PCR) Negative RSV (PCR) Negative MRSA (TEM-PCR) Negative 09/16/23 05:48 WBC RBC Hgb Hct MCV MCH MCHC RDW Plt Count MPV Immature Gran % Neutrophils % Band Neutrophils % Lymphocytes % Monocytes % Eosinophils % Basophils % Nucleated RBC % Absolute Neutrophils Absolute Lymphocytes Absolute Monocytes Absolute Eosinophils Absolute Basophils RBC Morphology PT INR APTT VBG pH VBG pCO2 VBG pO2 VBG HCO3 VBG Total CO2 VBG O2 Saturation VBG Base Excess VBG Lactate Sodium 135 L Potassium 4.0 Chloride 101 Carbon Dioxide 21.3 Anion Gap 12.7 H BUN 21 H Creatinine 1.1 H Est GFR (CKD-EPI 2020) 48.94 Glucose 134 H Calcium 8.1 L Total Bilirubin 0.5 AST 7 L ALT 15 Alkaline Phosphatase 61 Troponin I NT-Pro-B Natriuret Pep Total Protein 7.2 Albumin 2.1 L Procalcitonin TSH Urine Color Urine Clarity Urine pH Ur Specific [place] Urine Protein Urine Ketones Urine Blood Urine Nitrite Urine Bilirubin Urine Urobilinogen Ur Leukocyte Esterase Urine RBC Urine WBC Ur Epithelial Cells Urine Crystals Urine Bacteria Urine Mucus Ur Culture Indicated? Urine Glucose Random Vancomycin 17.5 COVID-19 Source SARS-CoV-2 (PCR) Influenza Type A (PCR) Influenza Type B (PCR) RSV (PCR) MRSA (TEM-PCR) Time Spent with Patient Time Spent with Patient: 25-34 minutes Time was spent: preparing to see the patient(eg.review tests), ordering medications,tests, procedures, referring, communicating with other health insurance healthcare consultant, indepentently interpreting results, counseling the patient and care coordination
[2023-09-16 10:57] LABS: HCT 21.8 % (36.0-46.0); HGB 7.4 g/dL (11.2-15.7); MCH 33.3 pg (27.0-33.0); MCHC 33.9 % (32.0-36.0); MCV 98 fL (80-95); RBC 2.22 10^6/uL (3.93-5.22); RDW 18.5 % (11.7-14.6); RDW-SD 66.8 fL
[2023-09-16 10:58] LABS: Absolute Basophil Count 0.02 10^3/uL (0.0-0.2); Absolute Eosinophil Count 0.11 10^3/uL (0.0-0.7); Absolute Monocyte Count 0.17 10^3/uL (0.1-0.8); Absolute Neutrophil Count 1.32 10^3/uL (1.2-6.7); Bands % 7; MPV 12.7 fL (8.0-11.0)
[2023-09-16 10:59] LABS: Diff Comment Manual Differential; Hypochromasia 2+; Metamyelocytes % 1
[2023-09-16 11:00] LABS: Ovalocytes 2+; Poikilocytes 2+; Target Cells 2+; Tear Drop Cells 2+
[2023-09-16 11:04] LABS: Platelet Count 20 10^3/uL (130-400)
[2023-09-16 11:05] LABS: WBC 1.84 10^3/uL (4.4-10.8)
[2023-09-16] MEDS: Lactated Ringers 1,000 ML 80 ML IV ×2 (11:25→20:49)
--- NOTE | 2023-09-16 11:28 | PDOC.CMIN ---
Date of service: 09/16/23 Time of Service: 11:28 Care Management Initial Assmt Initial Assessment REASON FOR HOSPITALIZATION:: sepsis PREVIOUS FUNCTIONAL STATUS/SOCIAL/FAMILY SUPPORTS:: Yolie lives alone in a mobile home in [place], [place] She had 3 children but both of her sons are . Her daughter Carrie lives locally and is close and supportive. 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 She is independent with all care and activities and does not receive any community services. Yolie no longer drives however her daughter and grandchildren assist with her transportation needs. CURRENT FUNCTIONAL STATUS:: Yolie was sitting up in bed visiting with her daughter when CM met with her. She was pleasant and engaged easily with CM. Yolie talked about her years as a commercial lines account manager in [place] and how much she enjoyed her work and how loyal her customers were. Yolie was admitted with sepsis, pneumonia and a UTI. She informed CM that she feels well and would like to go home as soon a s possible. She reported that her daughter's birthday is Wednesday and she needs to be home to complete some things for the occasion. CM asked if she would be willing to go to rehab if it was recommended and Yolie made it clear that rehab is not an option. She might consider home health if necessary. ADVANCE DIRECTIVES:: none on file Has patient been provided with info about the portal/API?: Yes Did the patient sign up for the portal?: No CODE STATUS:: DNR/DNI INSURANCE COVERAGE / FINANCIAL ISSUES:: BC/BS Medicare Replacement ([facility] Advantage) CURRENT HOME/COMMUNITY SERVICES/EQUIPMENT:: none PRIMARY CARE PHYSICIAN:: María Reynolds POTENTIAL DISCHARGE NEEDS:: follow up with PC and plan of care PATIENT/FAMILY EDUCATION NEEDS:: Review of discharge instructions, activity, limitations, follow up plan, discuss Ask Me Three TRANSPORTATION:: to be determined by disposition PLAN:: Anticipate Yolie will be discharged home, possibly with new home health services, when ,medically cleared. She will follow up with her community providers and plan of care and transport with family. CM will follow and continue to asses for discharge planning needs. PFSH All Active Problems (Updated 09/16/23 @ 11:41 by Issa Perea MD) Multiple myeloma in relapse (Acute) Anemia (Chronic) Dehydration (Acute) Pneumonia (Acute) Sepsis (Acute) Bandemia (Acute) Thrombocytopenia (Chronic) Leukopenia (Acute) Urinary tract infection (Acute) Medical History (Updated 09/16/23 @ 11:41 by Issa Perea MD) COVID-19 Social History Smoking/Tobacco Use Status: Never Smoking risk assessment performed?: Yes Housing: other SDOH(Care Management) Screening Will the Patient Participate in the Screening?: Yes Do you worry about having a steady place to live?: no In the past 12 months, have you had to go without electric, gas, oil or water in your home?: no Have you or anyone in your house had to go without enough food to eat?: no Has lack of transportation kept you from medical appointments or from doing things needed for daily living?: no Has anyone in your support network made you feel unsafe for any reason?: no
[2023-09-16] MEDS: Pantoprazole 40 MG VIAL IVP (12:32)
[2023-09-16 14:39] LABS: Albumin 36.2 % (55.8-66.1); Albumin g/dL 2.8 g/dL (3.6-5.2); Comment (See Note); Monoclonal Spike 31.3 % (None Seen); Monoclonal Spike g/dL 2.4 g/dL (None Seen); Total Protein 7.6 g/dL (6.3-8.2)
[2023-09-16] MEDS: Nystatin 500000 UNITS/5 ML SUSP 5ML CUP PO ×2 (14:40→19:26)
[2023-09-16 14:59] LABS: Immunotyping, Serum (See Note)
--- NOTE | 2023-09-16 15:42 | CHAPLAIN ---
Yolie wasn't feeling well and had a sore throat, but she was very pleasant and easily engaged in a conversation while having a popsicle. 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 She lived for many years is [facility] and really loved the weather and her jobs there. She moved to [place] to be closer to her daughter. She hopes to be home by this weekend to get ready for her daughter's birthday celebration.
[2023-09-16] MEDS: Sucralfate 1 GM TAB PO ×2 (16:55→20:17)
--- NOTE | 2023-09-16 17:03 | PHA.REVIEW2 ---
Pharmacy Admission Review Admission Clinical Review Admission Pharmacy Review: Multiple myeloma in relapse (Acute) Dehydration (Acute) Pneumonia (Acute) Sepsis (Acute) Leukopenia (Acute) Urinary tract infection (Acute) amoxicillin Allergy (Verified 07/29/23 12:56) cephalexin Allergy (Verified 07/29/23 12:56) Resuscitation Status DNR/DNI Height 5 ft 1 in Weight 54.7 kg Pharmacy Admission Review Renal Dosing Renal Dosing: BUN 21 mg/dL (7-18) H 09/16/23 05:48 Creatinine 1.1 mg/dL (0.55-1.02) H 09/16/23 05:48 Medications needing adjustments: Reviewed (crcl = 31) List of meds needing interventions: levaquin renally dosed @q48h, vancomycin dosed per kinetics, fluconazole to be adjusted Anticoagulation Anticoagulation: Hgb 7.4 g/dL (11.2-15.7) L 09/16/23 05:48 Hct 21.8 % (36.0-46.0) L 09/16/23 05:48 Plt Count 20 10^3/uL (130-400) L* 09/16/23 05:48 INR 1.3 (0.9-1.1) H 09/15/23 11:20 Creatinine 1.1 mg/dL (0.55-1.02) H 09/16/23 05:48 DVT Prophylaxis: Reviewed (SCDs (avoid chemoprophylaxis d/t low platelets)) Therapeutic Anticoagulation: N/A Opiate Usage Evaluate Pain Scale/Pains Meds: Reviewed (not on opiates) Relevant Labs Relevant Labs: Sodium 135 mmol/L (136-145) L 09/16/23 05:48 Potassium 4.0 mmol/L (3.5-5.1) 09/16/23 05:48 Chloride 101 mmol/L (98-107) 09/16/23 05:48 Electrolytes, C-Reactive P, ESR: Reviewed DM Control DM Control: N/A (not diabetic) Cardiac Review Cardiac Review: Troponin I < 50 ng/L (< or =60) 09/15/23 15:01 NT-Pro-B Natriuret Pep 8835 pg/mL (<300) H 09/15/23 11:20 BP, HR, EF%: Reviewed QTc Review QTc: Reviewed IV to PO Switch IV Medications: Reviewed (IV abx, continue) Home Meds Home Med List reviewed: Reviewed Current Meds Current Medication Order Review: Reviewed Pharmacy Antibiotic Review Pharmacy Antibiotic Activity: 48 hour review, C/S review and Reviewed, no change Comments: levofloxacin, vanco, fluconazole, indication: sepsis (treated as neutropenic), pneumonia, UTI. Urine growing gram neg rods. blood, wound, sputum cultures pending
[2023-09-16] MEDS: Benzocaine/Menthol LOZG 15/BOX 1 EACH MM ×2 (17:04→21:11)
[2023-09-16] MEDS: VANCOMYCIN/WATER (PEG) 750 MG/150 ML BAG 150 MG IV (19:27)
[2023-09-16] MEDS: Melatonin 3 MG TAB PO (20:17)
[2023-09-16 20:35] LABS: Legionella Ag Detection Urine Negative (Negative)
[2023-09-16] MEDS: guaiFENesin/D-METHORPHAN HB 5 ML CUP PO (21:11)
[2023-09-17] VITALS (22 sets, daily range): BP systolic 91–112; BP diastolic 39–63; PULSE 60–86; RESP 3–25; TEMP 36.6–36.9; O2SAT 92–99
[2023-09-17 06:29] LABS: MCV 100 fL (80-95); MPV 10.6 fL (8.0-11.0); RBC 1.94 10^6/uL (3.93-5.22); RDW 18.4 % (11.7-14.6); RDW-SD 66.9 fL
[2023-09-17 06:52] LABS: Vancomycin, Random 16.3 ug/mL
[2023-09-17 07:06] LABS: WBC 1.42 10^3/uL (4.4-10.8)
[2023-09-17 07:07] LABS: HCT 19.4 % (36.0-46.0); HGB 6.4 g/dL (11.2-15.7)
[2023-09-17 07:08] LABS: Absolute Basophil Count 0.03 10^3/uL (0.0-0.2); Absolute Eosinophil Count 0.07 10^3/uL (0.0-0.7); Absolute Lymphocyte Count 0.36 10^3/uL (1.2-3.4); Absolute Monocyte Count 0.13 10^3/uL (0.1-0.8); Absolute Neutrophil Count 0.82 10^3/uL (1.2-6.7); Bands % 6
[2023-09-17 07:10] LABS: Metamyelocytes % 1
[2023-09-17 07:11] LABS: Platelet Count 19 10^3/uL (130-400)
[2023-09-17] MEDS: Escitalopram 10 MG TAB 5 MG PO (07:36)
[2023-09-17] MEDS: Sucralfate 1 GM TAB PO ×4 (07:36→21:55)
[2023-09-17] MEDS: Vitamins B Comp w/C TAB 1 TAB PO (07:36)
[2023-09-17] MEDS: Gabapentin 100 MG CAP PO ×2 (07:37→20:54)
[2023-09-17] MEDS: Nystatin 500000 UNITS/5 ML SUSP 5ML CUP PO ×3 (07:37→20:54)
[2023-09-17] MEDS: Ascorbic Acid 500 MG TAB 1000 MG PO (07:37)
[2023-09-17] MEDS: Normal Saline Flush 10 ML SYR IVP ×4 (07:37→20:54)
[2023-09-17] MEDS: Cholecalciferol (Vitamin D3) 1,000 UNIT TAB 2000 UNITS PO (07:37)
[2023-09-17] MEDS: Omeprazole 20 MG CAPCR PO (07:37)
[2023-09-17] MEDS: Albuterol/Ipratropium 3 ML UPD VIAL UPD ×2 (08:03→20:10)
[2023-09-17 08:52] LABS: Diff Comment Manual Differential; RBC Morphology Normal
--- NOTE | 2023-09-17 09:47 | PGE_ITS ---
Date of Service Date of service: 09/17/23 Time of Service: 09:47 Assessment and Plan Assessment and plan (1) Sepsis: Status: Acute Assessment and plan: 88-year-old female with history of relapsing multiple myeloma just had her sixth round of chemotherapy including Ambar-Pom/car/Dex. Who presents with nausea and vomiting after her last chemotherapy treatment last week along with progressive shortness of breath found to have evidence of urinary tract infection as well as bibasilar pneumonia on CT scan. Patient is being treated as neutropenic sepsis although her ANC is above 1000 nevertheless she has significant pancytopenia with thrombocytopenia anemia and significant lymphocytopenia and monocytopenia. Patient is hemodynamically stable never required vasopressors. At this point I think she can be transferred out of the intensive care unit with continued IV antibiotics. Blood cultures remain no growth to date, urine culture positive for E. coli pansensitive, throat culture for group A strep pending. Sputum culture shows normal mateo. At this point I think that the Vancomcyin can be discontinued. Continue her Levaquin which will cover both the E coli UTI and cover for pneumonia. Professional time spent interviewing and examining patient, discussion of goals of care with hospital team (care management, nursing and consulting professionals) was 45 minutes. Qualifiers: Sepsis type: sepsis due to unspecified organism Sepsis acute organ dysfunction status: without acute organ dysfunction Qualified Code(s): A41.9 - Sepsis, unspecified organism (2) Pneumonia: Status: Acute Assessment and plan: continue bronchodilators, IS, vibrapep and Levquin. dc Vancomycin Qualifiers: Pneumonia type: due to unspecified organism Laterality: bilateral Lung location: lower lobe of lung Qualified Code(s): J18.9 - Pneumonia, unspecified organism (3) Urinary tract infection: Status: Acute Assessment and plan: Antibiotics as above Qualifiers: Urinary tract infection type: acute cystitis Hematuria presence: without hematuria Qualified Code(s): N30.00 - Acute cystitis without hematuria (4) Multiple myeloma in relapse: Status: Acute Assessment and plan: holding Daratumumab, pomalidomide, and dexamethasone and carfilzomi while being treated for her infection. (5) Dehydration: Status: Acute Assessment and plan: po intake somewhat improved. as she will be geting transfusion of 1 unit of PRBC, I will dc her iv fluids. (6) Thrombocytopenia: Status: Chronic Assessment and plan: use SCD for dvt prophylaxis; avoid chemoprophylaxis in light of her low plateletes (7) Leukopenia: Status: Acute Assessment and plan: monitor daily labs Qualifiers: Leukopenia type: lymphocytopenia Qualified Code(s): D72.810 - Lymphocytopenia (8) Anemia: Status: Chronic Assessment and plan: Hb down to 6.4 gm, some of this is dilutional but also d/t her chemotherapy. platelets are ok. will give one unit of PRBC, discussed w/ patient and she has given verbal consent. Qualifiers: Anemia type: unspecified type Qualified Code(s): D64.9 - Anemia, unspecified (9) GERD with esophagitis: Status: Suspected Assessment and plan: based on her symtoms of odynophagia and abnormal CT. She says she formerly had been on Fosamax when she was living in [place] and when her sister got severe esophagitis, the patient stopped taking her Fosamax. She has had symptoms of GERD for some time. I did not see any yeast in her mouth however given her pancytopenia/leukopenia and abnormal CT, I am covering her for possible Eulalia esophagitis w/ nystatin oral solution and Diflucan. I have also put her on carafate and protonix. I will keep her on Diflucan for 10 to 14 days but can change to oral at time of her discharge. She has never had an EGD. She should have one as outpatient once her pancytopenia recovers. Qualifiers: Esophagitis bleeding: without hemorrhage Qualified Code(s): K21.00 - Gastro-esophageal reflux disease with esophagitis, without bleeding Subjective Subjective Interval history since last seen: Yolie is feeling somewhat better today. Throat is less sore. She is tolerating strawberry shakes although she still has no appetite. coughing yellow/green sputum and she has been using her IS and Vibrapep. Exam Narrative Exam Narrative: Petite elderly female sitting up in her chair drinking a strawberry shake no acute distress. HEENT oropharynx examined prior to her drinking her shake shows no exudate Lungs coarse rales and expiratory wheezes Heart is regular rate and rhythm with a soft systolic grade 2/6 murmur over the apex no thrill or heave Abdomen soft nontender nondistended normal bowel sounds Extremities feet ankles with trace edema Objective Last Vital Signs Temp 36.7 C 03/15/24 07:45 Pulse 66 09/17/23 08:05 Resp 18 09/17/23 08:05 BP 91/63 L 09/17/23 07:57 Pulse Ox 99 09/17/23 08:05 Laboratory Results - last 24 hr 09/15/23 09/15/23 09/16/23 11:20 18:00 05:48 WBC 1.84 L* RBC 2.22 L Hgb 7.4 L Hct 21.8 L MCV 98 H MCH 33.3 H MCHC 33.9 RDW 18.5 H Plt Count 20 L* MPV 12.7 H Immature Gran % See Differential Neutrophils % 65.0 Band Neutrophils % 7 Lymphocytes % 11.0 Monocytes % 9.0 Eosinophils % 6.0 Basophils % 1.0 Metamyelocytes % 1 Nucleated RBC % Absolute Neutrophils 1.32 Absolute Lymphocytes 0.20 L Absolute Monocytes 0.17 Absolute Eosinophils 0.11 Absolute Basophils 0.02 RBC Morphology See Below Hypochromasia 2+ Poikilocytosis 2+ Tear Drop Cells 2+ Ovalocytes 2+ Sodium 135 L Potassium 4.0 Chloride 101 Carbon Dioxide 21.3 Anion Gap 12.7 H BUN 21 H Creatinine 1.1 H Est GFR (CKD-EPI 2020) 48.94 Glucose 134 H Calcium 8.1 L Total Bilirubin 0.5 AST 7 L ALT 15 Alkaline Phosphatase 61 Total Protein 7.2 Total Protein (PEP) 7.6 Albumin 2.1 L Albumin % (PEP) 36.2 L Albumin (PEP) 2.8 L Gxdss-2-Gesjdgijl 0.50 H Wjvqq-1-Ibcaemsez (%) 6.5 H Xfziu-7-Ymhwdkjmk 0.80 Ovwzc-1-Fjdfpqouw (%) 10.6 Beta Globulins (%) 5.3 L Beta Gamma Globulin 0.40 L Gamma Globulins 3.10 H Gamma Globulins (%) 41.4 H M-Malcolm 2.4 H M-Malcolm % 31.3 H PEP Comment (See Note) Random Vancomycin 17.5 IgG 198 L IgA 2300 H IgM <12 L Serum Immunofixation (See Note) Free [place] LC, Quant 5.20 H Free Lambda LC, Quant <0.44 L Free [place]/Lambda Ratio >11.82 H Urine Legionella Ag Negative 09/17/23 05:50 WBC 1.42 L* RBC 1.94 L Hgb 6.4 L* Hct 19.4 L* MCV 100 H MCH 33.0 MCHC 33.0 RDW 18.4 H Plt Count 19 L* MPV 10.6 Immature Gran % 0.0 Neutrophils % 52.0 Band Neutrophils % 6 Lymphocytes % 25.0 Monocytes % 9.0 Eosinophils % 5.0 Basophils % 2.0 Metamyelocytes % 1 Nucleated RBC % 0.0 Absolute Neutrophils 0.82 L Absolute Lymphocytes 0.36 L Absolute Monocytes 0.13 Absolute Eosinophils 0.07 Absolute Basophils 0.03 RBC Morphology Normal Hypochromasia Poikilocytosis Tear Drop Cells Ovalocytes Sodium Potassium Chloride Carbon Dioxide Anion Gap BUN Creatinine Est GFR (CKD-EPI 2020) Glucose Calcium Total Bilirubin AST ALT Alkaline Phosphatase Total Protein Total Protein (PEP) Albumin Albumin % (PEP) Albumin (PEP) Utqmd-6-Ptbgflwsn Ymcbq-4-Nhllkzguk (%) Jkwld-3-Wfjdcqpzu Zntgy-8-Gbxcrspwk (%) Beta Globulins (%) Beta Gamma Globulin Gamma Globulins Gamma Globulins (%) M-Malcolm M-Malcolm % PEP Comment Random Vancomycin 16.3 IgG IgA IgM Serum Immunofixation Free [place] LC, Quant Free Lambda LC, Quant Free [place]/Lambda Ratio Urine Legionella Ag Time Spent with Patient Time Spent with Patient: 35-49 minutes Time was spent: preparing to see the patient(eg.review tests), ordering medications,tests, procedures, referring, communicating with other health career guidance technician, indepentently interpreting results, counseling the patient and care coordination
--- NOTE | 2023-09-17 10:18 | PDOC.CMPRO ---
Date of service: 09/17/23 Time of Service: 10:19 Care Management Progress Note Progress Note Text Progress Note Text: S/O:Yolie was [id number] up in bed visiting with her daughter when CM met with her. She informed CM that she is really tired. Yolie had blood work this morning which revealed a Hgb of 6.4 so she will be transfused this afternoon. Yolie has been downgraded to Med-Surg status and will likely move out of the unit when a bed becomes available. Her daughter Kailey reported that she is not looking forward to the move as she loves the staff in ICU. A: Yolie is an 88 year old woman admitted on 09/15/23 with sepsis P:Anticipate Yolie will be discharged home, possibly with new home health services, when ,medically cleared. She will follow up with her community providers and plan of care and transport with family. CM will follow and continue to asses for discharge planning needs. SDOH(Care Management) Screening Will the Patient Participate in the Screening?: Yes Do you worry about having a steady place to live?: no In the past 12 months, have you had to go without electric, gas, oil or water in your home?: no Have you or anyone in your house had to go without enough food to eat?: no Has lack of transportation kept you from medical appointments or from doing things needed for daily living?: no Has anyone in your support network made you feel unsafe for any reason?: no
[2023-09-17] MEDS: Protein Nutritional Supplement 16 GM 1 OUNCE PACKET PO ×2 (14:15→20:54)
[2023-09-17] MEDS: Pantoprazole 40 MG VIAL IVP (14:15)
[2023-09-17] MEDS: levoFLOXacin 750 MG/150 ML BAG 100 MG IVPB (14:16)
[2023-09-17 14:52] LABS: Anion Gap 9.6 mmol/L (3-11); BUN 13 mg/dL (7-18); CO2 23.4 mmol/L (21.0-32.0); CREATININE 0.9 mg/dL (0.55-1.02); Calcium 8.3 mg/dL (8.5-10.1); Chloride 100 mmol/L (98-107); Estimated GFR 62.26 (mL/min/1.73m2); Glucose 113 mg/dL (74-106); Magnesium 1.8 mg/dL (1.8-2.4); Potassium 3.9 mmol/L (3.5-5.1); Sodium 133 mmol/L (136-145)
--- NOTE | 2023-09-17 15:24 | DI.US_ITS ---
APPROVED REPORT EXAM: Comprehensive 2D, Doppler, and color-flow Echocardiogram Patient Location: In-Patient Room/Bed: 221 Stain Applicator: Cindy Mendoza RDCS (AE) Indications: Sepsis, Evaluate LV and RV function Other Information Study Quality: Adequate Conclusion Normal left ventricular wall thickness chamber size. Ejection fraction is 55 %. Wall motion is norm al Normal right ventricular size and function Both atria are moderately enlarged Aortic valve is mildly sclerotic and trileaflet without stenosis or regurgitation Mild mitral annular calcification. Mild mitral regurgitation Ascending aorta measure 3.57 cm Wall motion Left Ventricle The left ventricle is normal size. The left ventricular systolic function is normal. The left ventric ular ejection fraction is within the normal range. There is normal left ventricular wall thickness. T here is normal LV segmental wall motion. There is no ventricular septal defect visualized. LVEF is 55 %. Right Ventricle Right ventricle is borderline dilated. Right ventricular systolic function is grossly normal. Atria Left atrium ismoderately dilated. Right atrium is moderately dilated. The interatrial septum is intac t with no evidence for an atrial septal defect. Aortic Valve The Aortic valve is mildly sclerotic. Aortic valve is trileaflet. No hemodynamically significant valv ular aortic stenosis. No aortic regurgitation is present. Mitral Valve Mild mitral annular calcification. No evidence of mitral valve stenosis. Mild mitral regurgitation. Tricuspid Valve The tricuspid valve is normal in structure. There is no tricuspid valve stenosis. Trace tricuspid reg urgitation. Pulmonic Valve The pulmonary valve is normal in structure. There is no pulmonic valvular stenosis. Trace pulmonic re gurgitation. Great Vessels The aortic root is normal in size. The ascending aorta is mildly dilated. Aortic arch is not well vis ualized. The IVC collapses <50% with inspiration. Pericardium There is no pericardial effusion. 2D Dimensions IVSD d PLAX 0.76 cm F: 0.6-1.0 Ao Root d 2.93 cm F: 2.7 - 3.3 LVPW d PLAX 0.84 cm F: 0.6 - 1.0 Ao Asc Diam d 3.57 cm F: 2.3 - 3.1 LVID d PLAX 4.97 cm F: 3.8 - 5.2 LVDs 3.71 cm F: 2.2 - 3.5 LV EF Teichholz 49.8 % FS 25.33 % LV EDV (Teich) 116.4 mL LV ESV (Teich) 58.4 mL M-Mode TAPSE 2.67 cm (M/F) >1.7 LV Volumes - Method of Disks (Jain's) Single Plane 2D LV Volumes Biplane 2D LV Volumes LV EDV A2C 84.0 mL LV EDV BP Index LV ESV A2C 40.1 mL SV BP LVEF(%) A2C 52.2 % SV Index LA Volume LA Length A4C 6.0 cm LA Length A2C 4.6 cm LA Area A4C s 26.09 cm2 LA Area A2C s 20.07 cm2 LA Vol A4C A-L 95.54 mL LA Vol A2C A-L 73.54 mL LA Vol Biplane A-L 95.6 mL LA Vol/BSA A4C A-L LA Vol/BSA A2C A-L LA Vol/BSA BP A-L 61.7 mL/m2 LA Vol A4C MOD 85.7 mL LA Vol A2C MOD 68.5 mL LA Vol BP MOD 86.6 mL RA Volume RA Area A4C 10.8 cm2 RA ESV A4C (A-L) 24.6mL RA Vol/BSA A4C A-L RA Length A4C 4.0 cm RA ESV A4C (MOD) 22.6mL LV Diastology MV E' medial 0.074 (>0.07 m/s) MV E Vmax 1.04 (0.4-1.3 m/s) MV E/E' MED 14.10 (<14) MV A Vmax 1.00 (0.4-1.3 m/s) MV E' lateral 0.099 (>0.1 m/s) E/A Ratio 1.0 MV E/E' LAT 10.44 (<14) MV E' Average 0.086 m/s MV E/E'(average) 12.00 Aortic Valve AoV Vmax 2.50 m/s LVOT Vmax 1.52 m/s AoV Peak Grad 24.9 mmHg LVOT Peak Grad 9.3 mmHg AoV Area (Vmax) 2.00 cm2 LVOT VTI 0.337 m AoV VTI 0.605 m LVOT Mean Grad 5.7 mmHg AoV Mean Lasha. 1.90 m/s LVOT SV 110.37 mL AoV Mean Grad 15.7 mmHg LVOT Diam s 2.00 cm AoV Area (VTI) 1.82 cm2 Velocity Ratio 0.61 Mitral Valve MV DT 158 (160-240 msec) MV Vmax TIPS 1.18 m/s MV Mean Grad 3.4 (<2mmHg) MV VTI 0.373 m Pulmonary Valve PV Vmax 1.10 (0.5-1.5 m/s) RVOT Vmax 0.81 m/s PV Peak Grad 4.9 mmHg RVOT Peak Gr. 2.6 mmHg PV Mean Lasha 0.81 m/s RVOT VTI 0.217 m PV Mean Grad 2.9 mmHg RVOT Mean Gr. 1.7 mmHg Tricuspid Valve RA Pressure 8.00 mmHg TR Vmax 3.43 m/s TV S' 0.15 m/s TR Peak Grad 47.1 mmHg RVSP (TR) 55.2 mmHg
[2023-09-17] MEDS: Melatonin 3 MG TAB PO (21:55)
[2023-09-17 22:40] LABS: Streptococcus Pneumoniae Ag, U Negative (Negative)
[2023-09-18] VITALS (21 sets, daily range): BP systolic 115–143; BP diastolic 56–79; PULSE 66–97; RESP 3–22; TEMP 36.7–39.1; O2SAT 92–97
[2023-09-18] MEDS: Albuterol/Ipratropium 3 ML UPD VIAL UPD ×4 (07:35→20:05)
[2023-09-18 09:38] LABS: Abs Immature Grans 0.01 10^3/uL (0.0-0.06); Absolute Eosinophil Count 0.02 10^3/uL (0.0-0.7); Absolute Monocyte Count 0.29 10^3/uL (0.1-0.8); Absolute Neutrophil Count 1.28 10^3/uL (1.2-6.7); Eosinophils % 1.1; HGB 8.1 g/dL (11.2-15.7); Immature Grans % 0.5; Lymphocytes % 15.8; MCH 32.9 pg (27.0-33.0); MCHC 33.8 % (32.0-36.0); MCV 98 fL (80-95); MPV 9.4 fL (8.0-11.0); Monocytes % 15.3; Neutrophils % 67.3; RBC 2.46 10^6/uL (3.93-5.22); RDW 18.1 % (11.7-14.6); RDW-SD 64.9 fL
[2023-09-18 09:48] LABS: Diff Comment Diff Reviewed; Platelet Count 26 10^3/uL (130-400); RBC Morphology Normal
[2023-09-18 09:52] LABS: ALT 27 U/L (14-59); AST 18 U/L (15-37); Albumin 2.2 g/dL (3.4-5.0); Alkaline Phosphatase 101 U/L (46-116); Anion Gap 12.7 mmol/L (3-11); BUN 15 mg/dL (7-18); Bilirubin, Total 0.5 mg/dL (0.2-1.0); CO2 21.3 mmol/L (21.0-32.0); CREATININE 0.9 mg/dL (0.55-1.02); Calcium 8.4 mg/dL (8.5-10.1); Chloride 101 mmol/L (98-107); Estimated GFR 62.26 (mL/min/1.73m2); Glucose 145 mg/dL (74-106); Potassium 3.4 mmol/L (3.5-5.1); Sodium 135 mmol/L (136-145)
--- NOTE | 2023-09-18 09:52 | IN_ITS ---
PT Notes Visit Reasons: Sepsis, Pneumonia, UTI, Pancytopenia Inpatient Physical Therapy Evaluation Date: September 18, 2023 Referring Doctor: Dr. Issa Perea PT Orders: PT CONSULT: Extended-stay weakness Precautions: Standard, fall, contact precautions, activity to tolerance Patient Profile/Admitting Diagnosis: Patient is an 88-year-old female admitted to and [facility] following visit to the emergency room with history of relapsing multiple myeloma just had her sixth round of chemotherapy including Ambar- Pom/car/Dex. She presented at the ED with nausea and vomiting after her last chemotherapy treatment last week along with progressive shortness of breath found to have evidence of urinary tract infection as well as bibasilar pneumonia on CT scan. Was transferred from ICU to [facility] yesterday. PMHX: PFSH All Active Problems (Updated 09/15/23 @ 18:54 by Issa Perea MD) Multiple myeloma in relapse (Acute) Anemia (Chronic) Dehydration (Acute) Pneumonia (Acute) Sepsis (Acute) Bandemia (Acute) Thrombocytopenia (Chronic) Leukopenia (Acute) Urinary tract infection (Acute) Medical History (Updated 09/15/23 @ 18:54 by Issa Perae MD) COVID-19 Meds Allergies and Home Medications Allergies Allergy/AdvReac Type Severity Reaction Status Date / Time amoxicillin Allergy Verified 07/29/23 12:56 cephalexin Allergy Verified 07/29/23 12:56 Home Medications Medication Instructions Recorded Confirmed Type gabapentin 100 mg capsule 100 mg PO BID 04/06/22 09/15/23 History ascorbic acid (vitamin C) 1,000 mg 1,000 mg PO DAILY 07/29/23 09/15/23 History tablet,extended release (C Complex) cholecalciferol (vitamin D3) 50 50 mcg PO DAILY 07/29/23 09/15/23 History mcg (2,000 unit) capsule (Vitamin D3) vitamin B complex (B 1 tab PO DAILY 07/29/23 09/15/23 History Complex-Vitamin B12 tablet) pfougid-oihqfdzor-moaj 1 tab PO .HOS 09/15/23 09/15/23 History dexamethasone 4 mg tablet 20 mg PO Q24H 09/15/23 09/15/23 History escitalopram oxalate 5 mg tablet 5 mg PO DAILY 09/15/23 09/15/23 History omeprazole 20 mg capsule,delayed 20 mg PO DAILY 09/15/23 09/15/23 History release pomalidomide 2 mg capsule See Rx Instructions PO DAILY 09/15/23 09/15/23 History (Pomalyst) Social History/Home Situation: Yolie lives alone in a mobile home in [place], [place] she has a ramp upon entry. She had 3 children but both of her sons are . Her daughter Carrie lives locally and is close and supportive. 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 She is independent with all care and activities and does not receive any community services. Yolie no longer drives however her daughter and grandchildren assist with her transportation needs. Current Functional Limitations: Community distance ambulation, Equipment Owned/DME: Front wheel walker, cane Subjective: Patient states she had a tough night last night with regards to sleep. Admits she is not having significant pain. Has been coughing a lot. States that she is anxious to return home. Enjoys knitting and crocheting. Objective: General Observation: Nursing tending to patient for medications. Sitting up in bed with head of bed at 55 degrees. 2 IV ports in each upper extremity forearm. Mental Status: Alert and oriented x 3 Pain: 0/10 ROM: Right Upper Extremity: Within functional limits Left Upper Extremity: Within functional limits Right Lower Extremity: Within functional limits Left Lower Extremity: Within functional limits Strength: Right Upper Extremity: Glenohumeral joint flexion, abduction, elbow flexion and extension 4/5. 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 Able to perform straight leg raise with 0 degree lag. Knee flexion 4 -/5. Ankle plantarflexion dorsiflexion 4/5. Left Lower Extremity: Hip flexion 4/5, seated hip abduction 4 -/5, seated hip adduction 4/5, knee extension 4/5. Able to perform straight leg raise with 0 degree lag. Knee flexion 4 -/5. Ankle plantarflexion and dorsiflexion 4/5 Sensation: Reports intact sensation light touch bilateral lower extremities. Bed Mobility/Transfers: Supine to sit (head of bed 45 degrees): Standby assist Sit to stand: To front wheel walker contact-guard x 1 Stand to sit: From front wheel walker contact-guard x 1 Sit to supine: Standby assist Gait: Patient ambulates 15 feet x 4 with contact-guard x 1 with front wheel walker. Able to maneuver walker changing directions 180 degrees with proper technique. No loss of balance. Balance: Static Sitting: Good Dynamic Sitting: Good Static Standing: Fair Dynamic Standing: Fair Special Tests: Mobility Limitations Standardized Measure [facility] AM-PAC 6 clicks Basic Mobility Inpatient Short Form: Raw Score: 19 standardized Score: [] CMS Score: 42% Informed Consent/Education: Patient instructed in purpose of PT consult and plan of care. Assessment: Patient presents with clinical signs and symptoms consistent with current/admitting diagnoses that have resulted to mobility limitations, gait instability, generalized weakness, and overall ADL decline as demonstrated by the following impairment level findings: 1. Decreased strength to B LE major muscle groups 2. Impaired standing balance 3. Impaired activity tolerance Impairments are contributing to the following functional limitations: 1. Decline in bed mobility skills 2. Decline in transfer skills 3. Difficulty with ambulation without assistive device and physical assistance 4. Increased completion time for mobility ADL performance 5. Increased risk for falls 6. Difficulty with managing steps alone safely Patient is assessed as a 29046 moderate complexity based on the following: History: 88-year-old female with past medical history as indicated above Examination: Demonstrable impairment in strength, balance, and mobility level with underlying impairments and functional limitations as exhibited above as well as deficit score of function 42% utilizing the [facility] Mobility Inpatient Short Form Presentation: Evolving Decision Makin moderate complexity Goals: Goals X1 week 1. Supine-Sit independent 2. Sit-Supine independent 3. Sit-Stand independent 4. Stand-Sit independent with FWW 5. Bed-Chair independent with FWW 6. Chair-Bed independent with FWW 7. Independent gait on level surface with use of FWW for at least 65 feet wit hout report of dyspnea 8. Independent stair negotiation while holding onto B rails for at least 30 steps without report of dyspnea 9. Independent with home exercise program 10. Good static and dynamic standing balance/tolerance Plan of Care/Treatment Plan: 1-2x/day, 7 days/week x 1 week. Plan of care has been reviewed with the PRINCIPAL TECHNOLOGIST providing the service under Physical Therapy direction. Initiate Physical Therapy intervention for pain management as needed, strengthening, bed mobility, transfers, gait, stairs, balance training, and use of assistive device. DISCHARGE RECOMMENDATIONS: [] Home with no services [] [X] Home with services. Patient will benefit from home health PT services in order to progress mobility level using least restrictive assistive ambulatory device, assess home safety, identify additional equipment needs, and establish a functional maintenance program that will increase ability of patient to remain at home. [] Home with outpatient PT [] [] SNF for continued rehabilitation [] [] Correction Care [] [] SNF versus LTC based on ability to participate and progress [] TREATMENT CODE/TIME: 23861-36 minutes initial evaluation. Please sign an return this page within 30 days if you agree with the above POC. Thank you! Physician Signature Date [facility] Thank you for this referral. Anatoliy Banks PT,DPT Disclaimer: This note was created using [employer] voice recognition software. It was reviewed for major content. However, there may be multiple small discrepancies and errors due to the voice recognition aspects of the software.
[2023-09-18] MEDS: Protein Nutritional Supplement 16 GM 1 OUNCE PACKET PO ×3 (09:56→20:59)
[2023-09-18] MEDS: Nystatin 500000 UNITS/5 ML SUSP 5ML CUP PO ×3 (09:57→20:58)
[2023-09-18] MEDS: Escitalopram 10 MG TAB 5 MG PO (09:58)
[2023-09-18] MEDS: Cholecalciferol (Vitamin D3) 1,000 UNIT TAB 2000 UNITS PO (09:59)
[2023-09-18] MEDS: Omeprazole 20 MG CAPCR PO (10:00)
[2023-09-18] MEDS: Vitamins B Comp w/C TAB 1 TAB PO (10:00)
[2023-09-18] MEDS: Normal Saline Flush 10 ML SYR IVP ×3 (10:00→16:44)
[2023-09-18] MEDS: Sucralfate 1 GM TAB PO ×4 (10:00→20:59)
[2023-09-18] MEDS: Ascorbic Acid 500 MG TAB 1000 MG PO (10:00)
[2023-09-18] MEDS: Gabapentin 100 MG CAP PO ×2 (10:00→20:59)
[2023-09-18] MEDS: Pantoprazole 40 MG VIAL IVP (12:16)
--- NOTE | 2023-09-18 13:00 | DI.RAD_ITS ---
Exam(s) XR PORTABLE CHEST AP EXAM: XR PORTABLE CHEST AP CLINICAL HISTORY: cough. TECHNIQUE: 2D digital imaging was performed. COMPARISON: CR XR CHEST 2V PA LATERAL from 12/31/[address] CHEST PE CTA from 09/15/2023 FINDINGS: Single AP portable view. There is a right-sided Port-A-Cath in place. Distal tip appears to be in the upper right atrium. Heart size is upper normal. The mediastinum is not widened, although please note that chest x-ray Ju ne 2022 revealed a moderate size hiatal hernia.. There is now significant large infiltrate in the left lower lobe and also left parahilar region. Als o right lower lobe infiltrate and there are small pleural effusions, right larger than left. Also in terstitial pattern in both lung willett. IMPRESSION: Significant deterioration when compared to the most recent chest radiograph of 12/31/2022.Bilateral i nfiltrates larger on the left side and small bilateral pleural effusions, right larger than left. Al so diffuse bilateral interstitial disease. DATA REPOSITORY: RADIATION DOSE DELIVERED:
--- NOTE | 2023-09-18 13:14 | W.PM.PROGNOT ---
Date of Service Date of service: 09/18/23 Time of Service: 13:14 Assessment and Plan Assessment and plan (1) Sepsis: Status: Acute Assessment and plan: 88-year-old female with history of relapsing multiple myeloma just had her sixth round of chemotherapy including Ambar-Pom/car/Dex. Who presents with nausea and vomiting after her last chemotherapy treatment last week along with progressive shortness of breath found to have evidence of urinary tract infection as well as bibasilar pneumonia on CT scan. Patient is being treated as neutropenic sepsis although her ANC is above 1000 nevertheless she has significant pancytopenia with thrombocytopenia anemia and significant lymphocytopenia and monocytopenia but she is recovering. Blood cultures no growth, urine culture: E coli pansensitive, currently on Levaquin 750 mg IV q48h, last dose 09/16. Professional time spent interviewing and examining patient, discussion of goals of care with hospital team (care management, nursing and consulting professionals) was 45 minutes. Qualifiers: Sepsis type: sepsis due to unspecified organism Sepsis acute organ dysfunction status: without acute organ dysfunction Qualified Code(s): A41.9 - Sepsis, unspecified organism (2) Pneumonia: Status: Acute Assessment and plan: continue bronchodilators, IS, vibrapep and Levquin. check follow up CXR. 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 I will prescribe Tesslon perles along w/ Tussionex for her cough. I will put her on mucinex. continue Levaquin. Qualifiers: Pneumonia type: due to unspecified organism Laterality: bilateral Lung location: lower lobe of lung Qualified Code(s): J18.9 - Pneumonia, unspecified organism (3) Urinary tract infection: Status: Acute Assessment and plan: Antibiotics as above Qualifiers: Urinary tract infection type: acute cystitis Hematuria presence: without hematuria Qualified Code(s): N30.00 - Acute cystitis without hematuria (4) Multiple myeloma in relapse: Status: Acute Assessment and plan: holding Daratumumab, pomalidomide, and dexamethasone and carfilzomi while being treated for her infection. Patient is worried about being off her chemotherapy as she says that when she failed Revlemid, she was put on her current treatment and was told she only had couple weeks to live if she did not respond to the new regimen. (5) Dehydration: Status: Acute Assessment and plan: resolving. continue to monitor. (6) Thrombocytopenia: Status: Chronic Assessment and plan: use SCD for dvt prophylaxis; avoid chemoprophylaxis in light of her low plateletes (7) Leukopenia: Status: Acute Assessment and plan: monitor daily labs Qualifiers: Leukopenia type: lymphocytopenia Qualified Code(s): D72.810 - Lymphocytopenia (8) Anemia: Status: Chronic Assessment and plan: Hb back up to 8.1 gm. will monitor daily Qualifiers: Anemia type: unspecified type Qualified Code(s): D64.9 - Anemia, unspecified (9) GERD with esophagitis: Status: Suspected Assessment and plan: based on her symtoms of odynophagia and abnormal CT. She says she formerly had been on Fosamax when she was living in [place] and when her sister got severe esophagitis, the patient stopped taking her Fosamax. She has had symptoms of GERD for some time. I did not see any yeast in her mouth however given her pancytopenia/leukopenia and abnormal CT, I am covering her for possible Eulalia esophagitis w/ nystatin oral solution and Diflucan. I have also put her on carafate and protonix. I will keep her on Diflucan for 10 to 14 days but can change to oral at time of her discharge. She has never had an EGD. She should have one as outpatient once her pancytopenia recovers. Qualifiers: Esophagitis bleeding: without hemorrhage Qualified Code(s): K21.00 - Gastro-esophageal reflux disease with esophagitis, without bleeding Subjective Subjective Interval history since last seen: Patient states that her swallowing is better, she is eating better. Still very weak. She is asking when she can go home. I met w/ her and her daughter and explained that I want to see her blood counts continue to rise, no fevers, improvement in her eating, and improvement in her mobiltiy. I told her that things do not need to be perfect but at least some stability in her blood counts and improvement in her mobility and strength to be sure she will succeed when she gets home. I told her that we will send visiting nurse and P.T. into her home. Today her blood counts are on the rise: wbc 1900, her neutropenia has improved (ANC 1280 up from 820), Hb 8.1 gm after one unit of PRBC yesterday and platelets now 26,000 (up from 19,000). Exam Narrative Exam Narrative: Patient still w/ harsh cough however not producing any mucus Lungs: diffuse rales Heart: RRR, soft, systolic murmur Abdomen; soft, nontender, nondistended Objective Last Vital Signs Temp 36.9 C 09/18/23 09:30 Pulse 79 09/18/23 09:30 Resp 16 09/18/23 09:30 BP 143/68 H 09/18/23 09:30 Pulse Ox 93 09/18/23 09:30 Laboratory Results - last 24 hr 09/17/23 09/17/23 09/17/23 11:05 13:50 14:00 WBC RBC Hgb Cancelled Hct Cancelled MCV MCH MCHC RDW Plt Count MPV Immature Gran % Neutrophils % Lymphocytes % Monocytes % Eosinophils % Basophils % Nucleated RBC % Absolute Neutrophils Absolute Lymphocytes Absolute Monocytes Absolute Eosinophils Absolute Basophils RBC Morphology Sodium 133 L Potassium 3.9 Chloride 100 Carbon Dioxide 23.4 Anion Gap 9.6 BUN 13 Creatinine 0.9 Est GFR (CKD-EPI 2020) 62.26 Glucose 113 H Calcium 8.3 L Magnesium 1.8 Total Bilirubin AST ALT Alkaline Phosphatase Total Protein Albumin Patient ABO/Rh O Positive Antibody Screen POSITIVE Antibody Identification Panagglutinin Crossmatch See Detail 09/18/23 09:28 WBC 1.90 L* RBC 2.46 L Hgb 8.1 L Hct 24.0 L MCV 98 H MCH 32.9 MCHC 33.8 RDW 18.1 H Plt Count 26 L* MPV 9.4 Immature Gran % 0.5 Neutrophils % 67.3 Lymphocytes % 15.8 Monocytes % 15.3 Eosinophils % 1.1 Basophils % 0.0 Nucleated RBC % 0.0 Absolute Neutrophils 1.28 Absolute Lymphocytes 0.30 L Absolute Monocytes 0.29 Absolute Eosinophils 0.02 Absolute Basophils 0.00 RBC Morphology Normal Sodium 135 L Potassium 3.4 L Chloride 101 Carbon Dioxide 21.3 Anion Gap 12.7 H BUN 15 Creatinine 0.9 Est GFR (CKD-EPI 2020) 62.26 Glucose 145 H Calcium 8.4 L Magnesium Total Bilirubin 0.5 AST 18 ALT 27 Alkaline Phosphatase 101 Total Protein 7.0 Albumin 2.2 L Patient ABO/Rh Antibody Screen Antibody Identification Crossmatch Time Spent with Patient Time Spent with Patient: 35-49 minutes Time was spent: preparing to see the patient(eg.review tests), ordering medications,tests, procedures, referring, communicating with other health progressive care manager, indepentently interpreting results, counseling the patient (and daughter) and care coordination
[2023-09-18] MEDS: Benzonatate 200 MG CAP PO ×2 (14:19→21:00)
[2023-09-18] MEDS: Potassium Chloride Liquid 20 MEQ PKT PO (14:19)
[2023-09-18] MEDS: guaiFENesin 600 MG TABCR PO ×2 (14:19→21:00)
[2023-09-18 15:09] LABS: Lab Add On Test DONE
[2023-09-18] MEDS: Acetaminophen 500 MG TAB 1000 MG PO (15:25)
[2023-09-18 15:38] LABS: NT-proBNP 5079 pg/mL (<300)
[2023-09-18 16:13] LABS: COVID-19 PCR Negative (Negative); Influenza A PCR Negative (Negative); Influenza B PCR Negative (Negative); RSV PCR Negative (Negative)
[2023-09-18 16:29] LABS: Source Nasopharynx
[2023-09-18] MEDS: FLUCONAZOLE 200 MG/100 ML BAG 100 MG IVPB (16:30)
[2023-09-18] MEDS: Furosemide 20 MG/2 ML VIAL IVP (16:43)
[2023-09-18 16:53] LABS: Bilirubin Negative (Negative); Blood Negative (Negative); Clarity Sl Cloudy (Clear); Glucose Negative (Negative); Ketones Negative (Negative); Leukocyte Esterase Small (Negative); Nitrite Negative (Negative); Urobilinogen 0.2 mg/dL (Up to 0.2); pH 5.5 (5-8)
[2023-09-18 16:59] LABS: Epithelial Cells Few HPF (Negative); RBC Negative HPF (0-2); WBC >50 HPF (0-5)
[2023-09-18 17:00] LABS: Bacteria Few HPF (Negative); C & S Indicated? Yes; Casts Negative LPF (Negative); Crystals Negative HPF (Negative); Mucus Trace (Negative); Other Cells Few Renal (Negative)
[2023-09-18 17:01] LABS: Procalcitonin 0.2 ng/mL
[2023-09-18] MEDS: VANCOMYCIN 1,500 MG in Normal Saline 250 ML 166.667 MG IVPB (17:53)
[2023-09-18] MEDS: Ibuprofen 600 MG TAB PO (18:13)
[2023-09-18] MEDS: AZTREONAM 2,000 MG in Normal Saline 100 ML 200 MG IVPB (20:58)
[2023-09-18] MEDS: Melatonin 3 MG TAB PO (21:00)
[2023-09-19] VITALS (9 sets, daily range): BP systolic 92–104; BP diastolic 46–63; PULSE 61–75; RESP 3–18; TEMP 36–36.6; O2SAT 93–98
[2023-09-19] MEDS: AZTREONAM 2,000 MG in Normal Saline 100 ML 200 MG IVPB ×3 (03:39→22:10)
[2023-09-19 06:22] LABS: HCT 21.4 % (36.0-46.0); HGB 7.2 g/dL (11.2-15.7); MCH 32.9 pg (27.0-33.0); MCHC 33.6 % (32.0-36.0); MCV 98 fL (80-95); MPV 10.2 fL (8.0-11.0); RBC 2.19 10^6/uL (3.93-5.22); RDW 18.1 % (11.7-14.6); RDW-SD 64.9 fL; WBC 2.24 10^3/uL (4.4-10.8)
[2023-09-19 06:36] LABS: Absolute Basophil Count 0.02 10^3/uL (0.0-0.2); Absolute Eosinophil Count 0.04 10^3/uL (0.0-0.7); Absolute Lymphocyte Count 0.76 10^3/uL (1.2-3.4); Absolute Monocyte Count 0.16 10^3/uL (0.1-0.8); Absolute Neutrophil Count 1.25 10^3/uL (1.2-6.7); Diff Comment Manual Differential; Platelet Count 26 10^3/uL (130-400); RBC Morphology Normal
[2023-09-19 06:59] LABS: Anion Gap 10.2 mmol/L (3-11); BUN 25 mg/dL (7-18); CO2 22.8 mmol/L (21.0-32.0); Calcium 7.7 mg/dL (8.5-10.1); Chloride 100 mmol/L (98-107); Estimated GFR 54.87 (mL/min/1.73m2); Glucose 118 mg/dL (74-106); Potassium 3.2 mmol/L (3.5-5.1); Sodium 133 mmol/L (136-145); Vancomycin, Random 20.9 ug/mL
[2023-09-19] MEDS: Albuterol/Ipratropium 3 ML UPD VIAL UPD ×4 (07:40→22:19)
[2023-09-19 07:44] LABS: Lab Add On Test DONE
[2023-09-19 07:52] LABS: Magnesium 1.7 mg/dL (1.8-2.4)
[2023-09-19] MEDS: Protein Nutritional Supplement 16 GM 1 OUNCE PACKET PO ×3 (08:05→20:09)
[2023-09-19] MEDS: Nystatin 500000 UNITS/5 ML SUSP 5ML CUP PO ×3 (08:06→20:07)
[2023-09-19] MEDS: Potassium Chloride Liquid 20 MEQ PKT PO ×3 (08:06→20:09)
[2023-09-19] MEDS: Ascorbic Acid 500 MG TAB 1000 MG PO (08:07)
[2023-09-19] MEDS: guaiFENesin 600 MG TABCR PO ×2 (08:07→20:07)
[2023-09-19] MEDS: Vitamins B Comp w/C TAB 1 TAB PO (08:07)
[2023-09-19] MEDS: Sucralfate 1 GM TAB PO ×4 (08:08→20:08)
[2023-09-19] MEDS: Gabapentin 100 MG CAP PO ×2 (08:08→20:08)
[2023-09-19] MEDS: Escitalopram 10 MG TAB 5 MG PO (08:09)
[2023-09-19] MEDS: Benzonatate 200 MG CAP PO ×3 (08:09→20:07)
[2023-09-19] MEDS: Cholecalciferol (Vitamin D3) 1,000 UNIT TAB 2000 UNITS PO (08:10)
[2023-09-19] MEDS: Normal Saline Flush 10 ML SYR IVP ×4 (08:12→20:08)
--- NOTE | 2023-09-19 09:54 | PT.INTREAT ---
PT Notes Visit Reasons: Sepsis, Pneumonia, UTI, Pancytopenia Date: 09/19/23 PRECAUTIONS: Standard, fall, contact precautions, activity to tolerance SUBJECTIVE: Pt in bed when approached for therapy this morning, pt reports she was having a difficult time sleeping, difficulty breathing waking her upin the middle of the night, pt agrees to participate with OOB activity. OBJECTIVE: ? PAIN: none reported VITALS: closely monitored by nursing. ? Therapeutic Activities [id number]: Direct one-on-one instruction in dynamic activities to improve functional performance. ?? BED MOBILITY/TRANSFERS? Rolling L/R: SBA Supine-sit: ?SBA ? Sit-supine: ? SBA? Sit-stand: ?SBA ? Stand-sit: ?SBA? Bed-Chair: CGA ? Chair-bed: CGA Provided skilled cues and instruction on performance and technique throughout. Gait Training: Direct one-on-one instruction and skilled instruction in: Employing an assistive device Movement sequencing Turning and movement with proper form Provided verbal cues for equipment management and technique Provided instruction in gait pattern Patient education regarding pacing and breathing techniques to maximize activity tolerance? GAIT? Assistive Device: ?FWW ? Weight bearing: FWB Assist: CGA? Distance:??100'x2 ? Deviation: Slow nohemy, low step height and step length, stoop forward posture.? ASSESSMENT:?Pt tolerated activity well, pt cue for deep breathing techniques during seated rest break to help with SOB, review of psyrometer and acapella use after pt got done with gait training while seated in recliner PLAN: Continue with balance training, global strengthening and general conditioning for improved safety, mobility and activity tolerance until pt is ready for DC. TREATMENT CODE/TIME: [id number] 25mins (9:30-9:55am)
[2023-09-19] MEDS: Furosemide 20 MG/2 ML VIAL IVP ×2 (10:01→16:38)
--- NOTE | 2023-09-19 11:02 | PTTR_ITS ---
PT Notes Visit Reasons: Sepsis, Pneumonia, UTI, Pancytopenia Date: 09/20/23 PRECAUTIONS: Standard, fall, activity to tolerance SUBJECTIVE: Pt in bed when approached for therapy this morning, pt reports she slept much better last night, feels stronger today, agreed to participate with therapy OBJECTIVE: ?Pt on IV drip line right antecubital ? PAIN: none reported VITALS: closely monitored by nursing. ? Therapeutic Activities [id number]: Direct one-on-one instruction in dynamic activities to improve functional performance. ?? BED MOBILITY/TRANSFERS? Rolling L/R: supervision Supine-sit: ?supervision? Sit-supine: ? SBA? Sit-stand: ?SBA ? Stand-sit: ?SBA? Bed-Chair: SBA? Chair-bed: SBA Provided skilled cues and instruction on performance and technique throughout. Gait Training: Direct one-on-one instruction and skilled instruction in: Employing an assistive device Movement sequencing Turning and movement with proper form Provided verbal cues for equipment management and technique Provided instruction in gait pattern Patient education regarding pacing and breathing techniques to maximize activity tolerance? GAIT? Assistive Device: ?FWW ? Weight bearing: FWB Assist: SBA ? Distance:??100'x1, 300x1? assistance with IV pole management? Deviation: Slow nohemy, low step height and step length, stoop forward posture.? ASSESSMENT:?Pt tolerated activity much better today with pt not having SOB before, during and after session, pt reports feeling fatigue post long gait tr aining and stayed in recliner after session. PLAN: Continue with balance training, global strengthening and general conditioning for improved safety, mobility and activity tolerance until pt is ready for DC. TREATMENT CODE/TIME: 86142h7 25mins (9:00-9:25am)
[2023-09-19] MEDS: VANCOMYCIN/WATER (PEG) 750 MG/150 ML BAG 100 MG IV (11:44)
--- NOTE | 2023-09-19 12:07 | W.PM.PROGNOT ---
Date of Service Date of service: 09/19/23 Time of Service: 12:07 Assessment and Plan Assessment and plan (1) Sepsis: Status: Acute Assessment and plan: 88-year-old female with history of relapsing multiple myeloma just had her sixth round of chemotherapy including Ambar-Pom/car/Dex. Who presents with nausea and vomiting after her last chemotherapy treatment last week along with progressive shortness of breath found to have evidence of urinary tract infection as well as bibasilar pneumonia on CT scan. Patient is being treated as neutropenic sepsis although her ANC is above 1000 nevertheless she has significant pancytopenia with thrombocytopenia anemia and significant lymphocytopenia and monocytopenia but she is recovering. Blood cultures no growth, urine culture: E coli pansensitive, currently on Levaquin 750 mg IV q48h, however, had to add Aztreonam and Vancomycin yesterday when she developed fever and chills and worsening hypoxemia. She also had repeat Fluvid swab which was negative. Repeat blood and urine cultures were sent yesterday and are pending. Today she appears much improved. Will continue current regimen and adjust based on her culture results. Her leukocytes, platelets have improved. She is no longer neutropenic. Professional time spent interviewing and examining patient, discussion of goals of care with hospital team (care management, nursing and consulting professionals) was 40 minutes. Qualifiers: Sepsis acute organ dysfunction status: without acute organ dysfunction Sepsis type: sepsis due to unspecified organism Qualified Code(s): A41.9 - Sepsis, unspecified organism (2) Pneumonia: Status: Acute Assessment and plan: continue bronchodilators, IS, vibrapep and Levquin. check follow up CXR. 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 continue Vancomcyin, Levaquin and Vancomcyin; continue bronchodilators. I did put her on some lasix as she seemed volume overloaded. Her echo has not been officially read however it appears she has moderate mitral regurgitation, moderate TR and moderate PHTN but normal LV and RV function. IVC was plethoric and collapsed <50% therefore I think she was volume overloaded and had high filling pressures. sputum so far has been NOF. Qualifiers: Laterality: bilateral Lung location: lower lobe of lung Pneumonia type: due to unspecified organism Qualified Code(s): J18.9 - Pneumonia, unspecified organism (3) Urinary tract infection: Status: Acute Assessment and plan: Antibiotics as above Qualifiers: Hematuria presence: without hematuria Urinary tract infection type: acute cystitis Qualified Code(s): N30.00 - Acute cystitis without hematuria (4) Multiple myeloma in relapse: Status: Acute Assessment and plan: holding Daratumumab, pomalidomide, and dexamethasone and carfilzomi while being treated for her infection. Patient is worried about being off her chemotherapy as she says that when she failed Revlemid, she was put on her current treatment and was told she only had couple weeks to live if she did not respond to the new regimen. (5) Thrombocytopenia: Status: Chronic Assessment and plan: use SCD for dvt prophylaxis; avoid chemoprophylaxis in light of her low plateletes, platelets are slo (6) Leukopenia: Status: Acute Assessment and plan: monitor daily labs, WBC are now improving and she is no longer neutropenic (total WBC 2240, ANC 1250) Qualifiers: Leukopenia type: lymphocytopenia Qualified Code(s): D72.810 - Lymphocytopenia (7) Anemia: Status: Chronic Assessment and plan: Hb back up to 8.1 gm. will monitor daily Qualifiers: Anemia type: unspecified type Qualified Code(s): D64.9 - Anemia, unspecified (8) GERD with esophagitis: Status: Suspected Assessment and plan: based on her symtoms of odynophagia and abnormal CT. She says she formerly had been on Fosamax when she was living in [place] and when her sister got severe esophagitis, the patient stopped taking her Fosamax. She has had symptoms of GERD for some time. I did not see any yeast in her mouth however given her pancytopenia/leukopenia and abnormal CT, I am covering her for possible Eulalia esophagitis w/ nystatin oral solution and Diflucan. I have also put her on carafate and protonix. I will keep her on Diflucan for 10 to 14 days but can change to oral at time of her discharge. She has never had an EGD. She should have one as outpatient once her pancytopenia recovers. Qualifiers: Esophagitis bleeding: without hemorrhage Qualified Code(s): K21.00 - Gastro-esophageal reflux disease with esophagitis, without bleeding Subjective Subjective Interval history since last seen: Yolie is feeling better. Dyspnea is improved. No longer requiring oxygen supplementation. SPO2 is now 94 to 96% on room air. She has remained afebrile Her swallowing is going better, not as much pain but still requires soft moist foods. Exam Narrative Exam Narrative: alert and oriented, patient sitting up in her chair talking w/ her daughter and granddaughter She is smiling, not coughing and not dyspneic w/ conversation Lungs: still w/ scattered expiratory wheezes but much improved airway Heart: regular, harsh systolic murmur over apex Abdomen: soft, nontender legs: trace to 1+ edema Objective Last Vital Signs Temp 36.6 C 09/19/23 08:22 Pulse 65 09/19/23 11:23 Resp 18 09/19/23 08:22 BP 104/53 L 09/19/23 08:22 Pulse Ox 94 09/19/23 11:23 Laboratory Results - last 24 hr 09/18/23 09/18/23 09/18/23 09:28 15:35 16:15 WBC RBC Hgb Hct MCV MCH MCHC RDW Plt Count MPV Immature Gran % Neutrophils % Lymphocytes % Monocytes % Eosinophils % Basophils % Nucleated RBC % Absolute Neutrophils Absolute Lymphocytes Absolute Monocytes Absolute Eosinophils Absolute Basophils RBC Morphology Sodium Potassium Chloride Carbon Dioxide Anion Gap BUN Creatinine Est GFR (CKD-EPI 2020) Glucose Calcium Magnesium NT-Pro-B Natriuret Pep 5079 H Procalcitonin 0.2 Urine Color Urine Clarity Urine pH Ur Specific [place] Urine Protein Urine Ketones Urine Blood Urine Nitrite Urine Bilirubin Urine Urobilinogen Ur Leukocyte Esterase Urine RBC Urine WBC Ur Epithelial Cells Urine Crystals Urine Bacteria Urine Casts Urine Mucus Urine Other Ur Culture Indicated? Urine Glucose Random Vancomycin COVID-19 Source Nasopharynx SARS-CoV-2 (PCR) Negative Influenza Type A (PCR) Negative Influenza Type B (PCR) Negative RSV (PCR) Negative Add-On Test Request DONE 09/18/23 09/19/23 16:41 06:00 WBC 2.24 L RBC 2.19 L Hgb 7.2 L Hct 21.4 L MCV 98 H MCH 32.9 MCHC 33.6 RDW 18.1 H Plt Count 26 L* MPV 10.2 Immature Gran % 0.0 Neutrophils % 56.0 Lymphocytes % 34.0 Monocytes % 7.0 Eosinophils % 2.0 Basophils % 1.0 Nucleated RBC % 0.0 Absolute Neutrophils 1.25 Absolute Lymphocytes 0.76 L Absolute Monocytes 0.16 Absolute Eosinophils 0.04 Absolute Basophils 0.02 RBC Morphology Normal Sodium 133 L Potassium 3.2 L Chloride 100 Carbon Dioxide 22.8 Anion Gap 10.2 BUN 25 H Creatinine 1.0 Est GFR (CKD-EPI 2020) 54.87 Glucose 118 H Calcium 7.7 L Magnesium 1.7 L NT-Pro-B Natriuret Pep Procalcitonin Urine Color Yellow Urine Clarity Sl Cloudy Urine pH 5.5 Ur Specific [place] 1.020 Urine Protein Trace Urine Ketones Negative Urine Blood Negative Urine Nitrite Negative Urine Bilirubin Negative Urine Urobilinogen 0.2 Ur Leukocyte Esterase Small H Urine RBC Negative Urine WBC >50 H Ur Epithelial Cells Few Urine Crystals Negative Urine Bacteria Few Urine Casts Negative Urine Mucus Trace Urine Other Few Renal Ur Culture Indicated? Yes Urine Glucose Negative Random Vancomycin 20.9 COVID-19 Source SARS-CoV-2 (PCR) Influenza Type A (PCR) Influenza Type B (PCR) RSV (PCR) Add-On Test Request DONE Time Spent with Patient Time Spent with Patient: 35-49 minutes Time was spent: preparing to see the patient(eg.review tests), ordering medications,tests, procedures, referring, communicating with other health care management assistant, indepentently interpreting results, counseling the patient (discussion of patient's care w/ her daughter and granddaughter) and care coordination
[2023-09-19] MEDS: Pantoprazole 40 MG VIAL IVP (14:04)
[2023-09-19] MEDS: levoFLOXacin 750 MG/150 ML BAG 100 MG IVPB (14:54)
[2023-09-19] MEDS: FLUCONAZOLE 200 MG/100 ML BAG 100 MG IVPB (16:38)
[2023-09-19] MEDS: Melatonin 3 MG TAB PO (20:08)
[2023-09-20] VITALS (11 sets, daily range): BP systolic 100–106; BP diastolic 47–59; PULSE 68–79; RESP 2–98; TEMP 36.7–36.9; O2SAT 94–98
[2023-09-20] MEDS: AZTREONAM 2,000 MG in Normal Saline 100 ML 200 MG IVPB ×3 (05:58→21:43)
[2023-09-20 06:25] LABS: Abs Immature Grans 0.02 10^3/uL (0.0-0.06); Absolute Basophil Count 0.01 10^3/uL (0.0-0.2); Absolute Eosinophil Count 0.04 10^3/uL (0.0-0.7); Absolute Lymphocyte Count 0.76 10^3/uL (1.2-3.4); Absolute Monocyte Count 0.31 10^3/uL (0.1-0.8); Absolute Neutrophil Count 1.05 10^3/uL (1.2-6.7); Basophils % 0.5; Eosinophils % 1.8; HCT 22.6 % (36.0-46.0); HGB 7.7 g/dL (11.2-15.7); Immature Grans % 0.9; Lymphocytes % 34.7; MCH 33.2 pg (27.0-33.0); MCHC 34.1 % (32.0-36.0); MCV 97 fL (80-95); Monocytes % 14.2; Neutrophils % 47.9; RBC 2.32 10^6/uL (3.93-5.22); RDW 18.2 % (11.7-14.6); RDW-SD 65.5 fL; WBC 2.19 10^3/uL (4.4-10.8)
[2023-09-20 06:33] LABS: Anion Gap 11.9 mmol/L (3-11); BUN 24 mg/dL (7-18); CO2 22.1 mmol/L (21.0-32.0); CREATININE 1.1 mg/dL (0.55-1.02); Calcium 8.2 mg/dL (8.5-10.1); Chloride 101 mmol/L (98-107); Estimated GFR 48.94 (mL/min/1.73m2); Glucose 102 mg/dL (74-106); Potassium 3.9 mmol/L (3.5-5.1); Sodium 135 mmol/L (136-145)
[2023-09-20] MEDS: VANCOMYCIN/WATER (PEG) 750 MG/150 ML BAG 100 MG IV (06:42)
[2023-09-20 06:59] LABS: Diff Comment Agrees w/ Instrument; Hypochromasia 2+; Platelet Count 35 10^3/uL (130-400)
[2023-09-20 07:00] LABS: Polychromasia Present
[2023-09-20] MEDS: Potassium Chloride Liquid 20 MEQ PKT PO (07:43)
[2023-09-20] MEDS: Protein Nutritional Supplement 16 GM 1 OUNCE PACKET PO ×3 (07:43→20:47)
[2023-09-20] MEDS: Escitalopram 10 MG TAB 5 MG PO (07:44)
[2023-09-20] MEDS: Ascorbic Acid 500 MG TAB 1000 MG PO (07:44)
[2023-09-20] MEDS: Vitamins B Comp w/C TAB 1 TAB PO (07:45)
[2023-09-20] MEDS: Sucralfate 1 GM TAB PO ×4 (07:45→20:47)
[2023-09-20] MEDS: guaiFENesin 600 MG TABCR PO ×2 (07:46→20:47)
[2023-09-20] MEDS: Benzonatate 200 MG CAP PO ×3 (07:46→20:47)
[2023-09-20] MEDS: Nystatin 500000 UNITS/5 ML SUSP 5ML CUP PO ×3 (07:46→20:47)
[2023-09-20] MEDS: Gabapentin 100 MG CAP PO ×2 (07:46→20:47)
[2023-09-20] MEDS: Cholecalciferol (Vitamin D3) 1,000 UNIT TAB 2000 UNITS PO (07:46)
[2023-09-20] MEDS: Albuterol/Ipratropium 3 ML UPD VIAL UPD ×4 (07:54→20:30)
--- NOTE | 2023-09-20 09:19 | PDOC.CMPRO ---
Date of service: 09/20/23 Time of Service: 09:19 Care Management Progress Note Progress Note Text Progress Note Text: S/O:Yolie was sitting up in a chair when CM met with her. She had her eyes closed but responded quickly when spoken to. Yolie stated that she is very tired and sleepy today. She has not been getting much rest as her sleep has been interrupted for care during the night. Yolie's vital signs are stable and she is improving clinically. Per provider, she may be ready for discharge tomorrow with new orders for home health nursing and PT. [facility] was notified of the potential discharge. A: Yolie is an 88 year old woman admitted on 09/15/23 with sepsis P:Anticipate Yolie will be discharged home, possibly with new home health services, when ,medically cleared. She will follow up with her community providers and plan of care and transport with family. CM will follow and continue to asses for discharge planning needs. SDOH(Care Management) Screening Will the Patient Participate in the Screening?: Yes Do you worry about having a steady place to live?: no In the past 12 months, have you had to go without electric, gas, oil or water in your home?: no Have you or anyone in your house had to go without enough food to eat?: no Has lack of transportation kept you from medical appointments or from doing things needed for daily living?: no Has anyone in your support network made you feel unsafe for any reason?: no
--- NOTE | 2023-09-20 11:06 | W.PM.PROGNOT ---
Date of Service Date of service: 09/20/23 Time of Service: 11:08 Assessment and Plan Assessment and plan (1) Severe sepsis: Status: Acute Assessment and plan: -Patient met severe sepsis criteria on admission with a white blood cell count 1.74, respiratory rate of 25, documented blood pressure of less than 90 systolic that improved after IV fluid rehydration, and source of infection being combination of community-acquired pneumonia and urinary tract infection -Sepsis pathology has since resolved -Patient was started on Levaquin every 48 hours -However, patient developed fever 09/19/2023 and has been afebrile since the addition of aztreonam and vancomycin -Initial and repeat blood cultures as well as urine cultures currently negative, continue to monitor (2) Pneumonia: Status: Acute Assessment and plan: -Continue antibiotics as noted above -continue bronchodilators Qualifiers: Pneumonia type: due to unspecified organism Laterality: bilateral Lung location: lower lobe of lung Qualified Code(s): J18.9 - Pneumonia, unspecified organism (3) Urinary tract infection: Status: Acute Assessment and plan: -Antibiotics as above Qualifiers: Urinary tract infection type: acute cystitis Hematuria presence: without hematuria Qualified Code(s): N30.00 - Acute cystitis without hematuria (4) Multiple myeloma in relapse: Status: Acute Assessment and plan: -holding Daratumumab, pomalidomide, and dexamethasone and carfilzomi while being treated for her infection. -Patient is worried about being off her chemotherapy as she says that when she failed Revlemid, she was put on her current treatment and was told she only had couple weeks to live if she did not respond to the new regimen. (5) Thrombocytopenia: Status: Chronic Assessment and plan: -use SCD for dvt prophylaxis; avoid chemoprophylaxis in light of her low plateletes -platelet count improving (6) Leukopenia: Status: Acute Assessment and plan: -monitor daily labs, WBC are now improving and she is no longer neutropenic (total WBC 2240, ANC 1250) Qualifiers: Leukopenia type: lymphocytopenia Qualified Code(s): D72.810 - Lymphocytopenia (7) Anemia: Status: Chronic Assessment and plan: -Hb back up to 8.1 gm. will monitor daily Qualifiers: Anemia type: unspecified type Qualified Code(s): D64.9 - Anemia, unspecified (8) GERD with esophagitis: Status: Suspected Assessment and plan: -overing her for possible Eulalia esophagitis w/ nystatin oral solution and Diflucan. -continue carafate and protonix. Qualifiers: Esophagitis bleeding: without hemorrhage Qualified Code(s): K21.00 - Gastro-esophageal reflux disease with esophagitis, without bleeding Subjective Subjective Interval history since last seen: Patient states that she is doing well today and is breathing much better. She understands we are awaiting culture results to narrow down her antibiotics. Otherwise she has no other complaints or concerns at this time. Exam Narrative Exam Narrative: Elderly female sitting in the chair no acute distress on room air, ANO x 4, heart regular rate rhythm, lungs clear to auscultation bilaterally, abdomen soft, nontender, nondistended Objective Last Vital Signs Temp 98.4 F 09/20/23 07:22 Pulse 79 09/20/23 07:22 Resp 98 H 09/20/23 07:54 BP 102/59 L 09/20/23 07:22 Pulse Ox 98 09/20/23 08:00 Laboratory Results - last 24 hr 09/15/23 09/20/23 18:00 06:08 WBC 2.19 L RBC 2.32 L Hgb 7.7 L Hct 22.6 L MCV 97 H MCH 33.2 H MCHC 34.1 RDW 18.2 H Plt Count 35 L MPV 11.0 Immature Gran % 0.9 Neutrophils % 47.9 Lymphocytes % 34.7 Monocytes % 14.2 Eosinophils % 1.8 Basophils % 0.5 Nucleated RBC % 0.0 Absolute Neutrophils 1.05 L Absolute Lymphocytes 0.76 L Absolute Monocytes 0.31 Absolute Eosinophils 0.04 Absolute Basophils 0.01 RBC Morphology See Below Polychromasia Present Hypochromasia 2+ Sodium 135 L Potassium 3.9 Chloride 101 Carbon Dioxide 22.1 Anion Gap 11.9 H BUN 24 H Creatinine 1.1 H Est GFR (CKD-EPI 2020) 48.94 Glucose 102 Calcium 8.2 L Ur Strep pneumoniae Ag Negative Time Spent with Patient Time Spent with Patient: >50 minutes Time was spent: preparing to see the patient(eg.review tests), obtaining and/or reviewing separately otained hiistory, ordering medications,tests, procedures, referring, communicating with other health progressive care unit registered nurse, indepentently interpreting results, counseling the patient and care coordination
[2023-09-20] MEDS: Pantoprazole 40 MG VIAL IVP (12:42)
--- NOTE | 2023-09-20 13:54 | PT.INTREAT ---
PT Notes Visit Reasons: Sepsis, Pneumonia, UTI, Pancytopenia Inpatient Physical Therapy Treatment Note [facility] Date: 09/20/23 PRECAUTIONS:Standard SUBJECTIVE: Pt reports that she is tired this afternoon. OBJECTIVE: Therapeutic Activities (62107x[2]): Direct one-on-one instruction in dynamic activities to improve functional performance. ? BED MOBILITY/TRANSFERS? Sit-supine: CGA ? Sit-stand: CGA? GAIT? Assistive Device: FWW ? Weight bearing: Full Assist: CGAx1 ? Distance:? Approx 150ft ? Therapeutic Exercises (14022h[]): Direct one-on-one instruction in therapeutic exercises to develop strength, endurance, range of motion and flexibility. ? Exercises ? Supine rowing x 10 Supine shoulder flexion x 10 Supine shoulder horz abd x 10 Supine shoulder circles x 5 cs/ccw Q.S. x 10 SLR x 10 Hip abd supine x 10 Supine heel slides x10 ASSESSMENT:? Pt was tired this afternoon but felt better after PT. PLAN: Cont as per PT POC. TREATMENT CODE/TIME: 1:30-1:53 (23) TAx2
[2023-09-20] MEDS: FLUCONAZOLE 200 MG/100 ML BAG 100 MG IVPB (16:48)
[2023-09-20] MEDS: Potassium Chloride 20 MEQ TABCR PO ×2 (16:49→20:47)
[2023-09-20] MEDS: Melatonin 3 MG TAB PO (20:47)
[2023-09-20] MEDS: Normal Saline Flush 10 ML SYR IVP (21:28)
[2023-09-21] MEDS: AZTREONAM 2,000 MG in Normal Saline 100 ML 200 MG IVPB (06:16)
[2023-09-21] MEDS: VANCOMYCIN/WATER (PEG) 750 MG/150 ML BAG 100 MG IV (06:46)
[2023-09-21 07:00] LABS: Abs Immature Grans 0.02 10^3/uL (0.0-0.06); Absolute Basophil Count 0.02 10^3/uL (0.0-0.2); Absolute Eosinophil Count 0.06 10^3/uL (0.0-0.7); Absolute Lymphocyte Count 0.75 10^3/uL (1.2-3.4); Absolute Monocyte Count 0.25 10^3/uL (0.1-0.8); Absolute Neutrophil Count 0.87 10^3/uL (1.2-6.7); HCT 23.3 % (36.0-46.0); HGB 7.7 g/dL (11.2-15.7); Lymphocytes % 38.1; MCH 32.6 pg (27.0-33.0); MCV 99 fL (80-95); MPV 10.5 fL (8.0-11.0); Monocytes % 12.7; Neutrophils % 44.2; RBC 2.36 10^6/uL (3.93-5.22); RDW 18.3 % (11.7-14.6); RDW-SD 66.2 fL
[2023-09-21 07:06] LABS: WBC 1.97 10^3/uL (4.4-10.8)
[2023-09-21 07:23] LABS: Anion Gap 9.2 mmol/L (3-11); BUN 25 mg/dL (7-18); CO2 22.8 mmol/L (21.0-32.0); CREATININE 0.9 mg/dL (0.55-1.02); Calcium 8.8 mg/dL (8.5-10.1); Chloride 104 mmol/L (98-107); Estimated GFR 62.26 (mL/min/1.73m2); Glucose 109 mg/dL (74-106); Potassium 4.4 mmol/L (3.5-5.1); Sodium 136 mmol/L (136-145)
[2023-09-21 07:28] LABS: Platelet Count 41 10^3/uL (130-400)
[2023-09-21 07:29] LABS: Diff Comment Agrees w/ Instrument; Hypochromasia 2+
[2023-09-21 07:45] VITALS: PULSE 78; RESP 16; RESP 2; O2SAT 95
[2023-09-21] MEDS: Albuterol/Ipratropium 3 ML UPD VIAL UPD ×2 (07:45→11:43)
[2023-09-21 07:46] VITALS: PULSE 80; RESP 17; RESP 2; O2SAT 97
[2023-09-21] MEDS: Benzonatate 200 MG CAP PO (07:59)
[2023-09-21] MEDS: guaiFENesin 600 MG TABCR PO (07:59)
[2023-09-21] MEDS: Escitalopram 10 MG TAB 5 MG PO (07:59)
[2023-09-21] MEDS: Sucralfate 1 GM TAB PO (07:59)
[2023-09-21] MEDS: Cholecalciferol (Vitamin D3) 1,000 UNIT TAB 2000 UNITS PO (07:59)
[2023-09-21] MEDS: Nystatin 500000 UNITS/5 ML SUSP 5ML CUP PO (08:01)
[2023-09-21] MEDS: Vitamins B Comp w/C TAB 1 TAB PO (08:01)
[2023-09-21] MEDS: Ascorbic Acid 500 MG TAB 1000 MG PO (08:01)
[2023-09-21] MEDS: Protein Nutritional Supplement 16 GM 1 OUNCE PACKET PO (08:02)
[2023-09-21] MEDS: Gabapentin 100 MG CAP PO (08:02)
[2023-09-21 08:28] VITALS: BP 127/61; PULSE 75; RESP 18; TEMP 36.3; O2SAT 95
--- NOTE | 2023-09-21 08:40 | PTTR_ITS ---
PT Notes Visit Reasons: Sepsis, Pneumonia, UTI, Pancytopenia Inpatient Physical Therapy Treatment Note [facility] Date: 09/21/23 PRECAUTIONS:Standard OBJECTIVE: Therapeutic Activities (32620g[1]): Direct one-on-one instruction in dynamic activities to improve functional performance. ? BED MOBILITY/TRANSFERS? Sit-stand: CGA? Stand-sit: CGA ? Provided skilled cues and instruction on performance and technique thro ernahout. Gait Training (66187s[]): Direct one-on-one instruction and skilled instruction in: [] employing an assistive device [] modified weight-bearing status [] movement sequencing [] turning and movement with proper form [] Provided verbal cues for equipment management and technique [] Provided instruction in gait pattern [] Patient education regarding pacing and breathing techniques to maximize activity tolerance? GAIT? Assistive Device: FWW ? Weight bearing: Full Assist: CGA ? Distance:? Approx 700ft ? ASSESSMENT:? Pt tolerated today's session well. Pt did not wish to complete seated exercises today after ambulation. PLAN: Cont as per PT POC. TREATMENT CODE/TIME: 8:25-8:40 (15) TA
--- NOTE | 2023-09-21 09:06 | PT.INTREAT ---
PT Notes Visit Reasons: Sepsis, Pneumonia, UTI, Pancytopenia Inpatient Physical Therapy Treatment Note [facility] Date: 09/21/23 PRECAUTIONS:Standard SUBJECTIVE: Pt reports that she wishes she could get her energy back. OBJECTIVE: ? Therapeutic Activities (99345z[1]): Direct one-on-one instruction in dynamic activities to improve functional performance. ? BED MOBILITY/TRANSFERS? Sit-stand: CGA? Stand-sit: CGA ? Provided skilled cues and instruction on performance and technique throughout. Gait Training (58664p[]): Direct one-on-one instruction and skilled instruction in: [] employing an assistive device [] modified weight-bearing status [] movement sequencing [] turning and movement with proper form [] Provided verbal cues for equipment management and technique [] Provided instruction in gait pattern [] Patient education regarding pacing and breathing techniques to maximize activity tolerance? GAIT? Assistive Device: FWW? Weight bearing: Full Assist: CGA? Distance:? Approx 100ft? Also ambulated to bathroom for toileting? Therapeutic Exercises (03770g[]): Direct one-on-one instruction in therapeutic exercises to develop strength, endurance, range of motion and flexibility. ? Exercises ? Seated rowing x 10 Seated shoulder flexion x 10 Seated horx abd x 10 LAQ x 10 Seated marching x 10 Seated hip abd x 10 ? ASSESSMENT:? Pt seemed more fatiged this am but still motivated for PT. PLAN: Cont as per PT POC. TREATMENT CODE/TIME: 8:45-9:05 (20) TA
[2023-09-21] MEDS: Normal Saline Flush 10 ML SYR IVP ×2 (09:11→09:14)
--- NOTE | 2023-09-21 10:21 | PDOC.HHF2F_ITS ---
Home Health Referral Home Health Orders Clinical synopsis of why skilled professionals are needed: Frail older female with recent community acquired pneumonia, pancytopenia and replase of multiple myeloma Registered Nurse: Check all that apply Instruct on new or changed medication(s)/assess compliance: Ordered Assess for exacerbation of medical condition, instruct patient/caregivers on signs and symptoms to report for early detection: Ordered Physical Therapist: Check all that apply Increase strength & endurance for safe mobility at home: Ordered To design/establish home maintenance program: Ordered Fall reduction therapy program for patient with history of frequent falls: Ordered Home safety evaluation and teaching/gait training including stair management (if applicable): Ordered Encounter Date and Reason: I certify that a FTF encounter for this patient was performed on September 21, 2023 and that such encounter was related to the primary reason the patient requires home health services. The encounter was conducted in the following manner: * By me as the certifying physician, NETWORK SERVICES PROJECT MANAGER, PA or * By an inpatient physician, NETWORK SERVICES PROJECT MANAGER or PA during an inpatient stay who communicated findings to me, Certification And Authentication I certify that I composed the above information based on my clinical judgment relating to this patient's medical condition and, if applicable, clinical findings communicated to me by the NPP or inpatient physician who performed the FTF encounter. Name of Provider that will be monitoring home health services: María Hemphill
--- NOTE | 2023-09-21 10:23 | W.PM.DS.N ---
Date of service: 09/21/23 Time of Service: 10:23 DS: Diagnosis Discharge Diagnosis (1) Severe sepsis: Status: Acute Asessment and Plan: -Patient met severe sepsis criteria on admission with a white blood cell count 1.74, respiratory rate of 25, documented blood pressure of less than 90 systolic that improved after IV fluid rehydration, and source of infection being combination of community-acquired pneumonia and urinary tract infection -Sepsis pathology has since resolved -Patient was started on Levaquin every 48 hours -However, patient developed fever 09/19/2023 and has been afebrile since the addition of aztreonam and vancomycin -Initial and repeat blood cultures all negative, will discharge with additional 5 days of PO levaofloxacin (2) Pneumonia: Status: Acute Asessment and Plan: -as noted above (3) Urinary tract infection: Status: Acute Asessment and Plan: -as noted above (4) Multiple myeloma in relapse: Status: Acute Asessment and Plan: -holding Daratumumab, pomalidomide, and dexamethasone and carfilzomi while being treated for her infection. -Patient is worried about being off her chemotherapy as she says that when she failed Revlemid, she was put on her current treatment and was told she only had couple weeks to live if she did not respond to the new regimen. (5) Thrombocytopenia: Status: Chronic Asessment and Plan: -improved (6) Leukopenia: Status: Acute Asessment and Plan: -improved (7) Anemia: Status: Chronic Asessment and Plan: -improved (8) GERD with esophagitis: Status: Suspected Asessment and Plan: -continue protonix and carafate Discharge Plan Disposition Patient Disposition: Home W/Home Health Services Condition: Good Discharge Details Reason For Visit: Sepsis, Pneumonia, UTI, Pancytopenia Admit Date/Time: 09/15/23 15:18 Admit Provider: Issa Preea Attending Provider: Issa Perea Primary Care Provider: María Reynolds Hospital Course Hospital Course: Patient was initially admitted with severe sepsis due to combination of community-acquired pneumonia and urinary tract infection but significantly improved with IV fluid rehydration and IV antibiotics. She was initially started on every 48 hours of Levaquin, but patient developed fever on the evening of 09/19/2023 and had been transition to aztreonam and vancomycin with initial and repeat blood cultures all negative to date. Will discontinue aztreonam and vancomycin and continue p.o. Levaquin every 48 hours to complete 7-day course of antibiotics. Additionally, patient was also leukopenic And thrombocytopenic likely secondary to her relapsed multiple myeloma but white blood cell and platelet counts both improved during hospitalization Home Meds and New Rx's Prescriptions: New levofloxacin 750 mg tablet 750 mg PO Q48H 5 Days Qty: 3 0RF Continued gabapentin 100 mg capsule 100 mg PO BID vitamin B complex [B Complex-Vitamin B12] Tablet 1 tab PO DAILY cholecalciferol (vitamin D3) [Vitamin D3] 50 mcg (2,000 unit) capsule 50 mcg PO DAILY C Complex 1,000 mg tablet extended release 1,000 mg PO DAILY dexamethasone 4 mg tablet 20 mg PO Q24H Patient Comments: TAKE FIVE TABLETS BY MOUTH EVERY DAY omeprazole 20 mg capsule,delayed release(DR/EC) 20 mg PO DAILY escitalopram oxalate 5 mg tablet 5 mg PO DAILY Pomalyst 2 mg capsule See Rx Instructions PO DAILY Rx Instructions: take 1 cap by mouth for 21 days orally daily; kyscitg-scvcttrgd-flbi 1 tab PO .HOS Rx Instructions: take 1 tab by mouth at bedtime Discharge Instructions Instructions: Multiple Myeloma (DC), Myelodysplastic Syndromes (DC), Community Acquired Pneumonia (DC), Pancytopenia (DC) Activity:: Activity as Tolerated Equipment/Supplies:: No Equipment Needed Diet:: As Tolerated Discharge Orders Discharge Orders: Discharge Order (Routine); Ordered 09/21/23 Ordered By: Shaheed Holm DS: Summary Time Spent with Patient providing and/or coordinating discharge services: Greater than 30 minutes Status at Discharge Functional status at discharge: independent ambulation Overall status at discharge: patient is back to baseline Mental Status: mental status grossly normal Speech and Movement: speech and movement normal Mood: congruent mood Affect: normal affect Quality:SDOH Health Related Social Needs: No Data to Display Exam Narrative Exam Narrative: Elderly female sitting in the chair no acute distress on room air, ANO x 4, heart regular rate rhythm, lungs clear to auscultation bilaterally, abdomen soft, nontender, nondistended Psych Mental Status: mental status grossly normal Speech and Movement: speech and movement normal Mood: congruent mood Affect: normal affect DS: Data Vitals/I&O Vitals and I&O: Vital Signs Temperature 97.3 F L 09/21/23 08:28 Temperature Source Tympanic 09/21/23 08:28 Pulse 75 09/21/23 08:28 Pulse Rhythm Irregular 09/21/23 08:22 Pulse 63 09/17/23 07:57 Respiratory Rate 18 09/21/23 08:28 Respiratory Effort Normal, Non-Labored 09/21/23 08:22 Respiratory Depth Normal 09/21/23 08:22 Respiratory Pattern Normal 09/21/23 08:22 Blood Pressure 127/61 09/21/23 08:28 Blood Pressure Mean 72 09/17/23 07:57 Blood Pressure Position Sitting 09/17/23 07:45 Pulse Oximetry 95 09/21/23 08:28 Oxygen Delivery Method Room Air 09/21/23 08:28 Oxygen Flow Rate 0 09/21/23 08:28 Fraction of Inspired Oxygen (FIO2) 93 09/20/23 20:30 Pain Level 0 09/21/23 08:28 Comment [employer] Notified 09/19/23 05:09 Comment map 63 09/16/23 14:00 Intake & Output 09/20/23 09/21/23 09/21/23 17:59 05:59 17:59 Intake Total 530 / 530 110 / 640 200 / 200 Output Total 1500 / 1500 1350 / 2850 300 / 300 Balance -970 / -970 -1240 / -2210 -100 / -100 Weight 125 lb 7.088 oz 125 lb 14.143 oz Intake: IV 350 / 350 110 / 460 200 / 200 Oral 180 / 180 Output: Urine 1500 / 1500 1350 / 2850 300 / 300 Other: Urine Color Yellow Yellow Pale Yellow Urine Appearance Clear Clear Clear Urine Odor Normal Normal Normal Voiding Methods Bedside Commode Bedside Commode Bedside Commode Diaper Incontinent Data Completed and Pending Labs on day of discharge: Labs from last 24 hours 09/21/23 06:05 WBC 1.97 L* RBC 2.36 L Hgb 7.7 L Hct 23.3 L MCV 99 H MCH 32.6 MCHC 33.0 RDW 18.3 H Plt Count 41 L MPV 10.5 Immature Gran % 1.0 Neutrophils % 44.2 Lymphocytes % 38.1 Monocytes % 12.7 Eosinophils % 3.0 Basophils % 1.0 Nucleated RBC % 0.0 Absolute Neutrophils 0.87 L Absolute Lymphocytes 0.75 L Absolute Monocytes 0.25 Absolute Eosinophils 0.06 Absolute Basophils 0.02 RBC Morphology See Below Hypochromasia 2+ Sodium 136 Potassium 4.4 Chloride 104 Carbon Dioxide 22.8 Anion Gap 9.2 BUN 25 H Creatinine 0.9 Est GFR (CKD-EPI 2020) 62.26 Glucose 109 H Calcium 8.8 Preliminary micro results at discharge 09/18/23 16:15 Blood Culture - Preliminary Blood NO GROWTH 48 HOURS 09/18/23 15:58 Blood Culture - Preliminary Blood NO GROWTH 48 HOURS PFSH All Active Problems (Updated 09/21/23 @ 10:21 by Shaheed Holm MD) Severe sepsis (Acute) Community acquired pneumonia (Acute) Multiple myeloma in relapse (Acute) Anemia (Chronic) Dehydration (Acute) Pneumonia (Acute) Sepsis (Acute) Bandemia (Acute) Thrombocytopenia (Chronic) Leukopenia (Acute) Urinary tract infection (Acute) Medical History (Updated 09/21/23 @ 10:21 by Shaheed Holm MD) COVID-19 Social History Smoking/Tobacco Use Status: Never Smoking risk assessment performed?: Yes Housing: other Time Spent with Patient Time Spent with Patient: <45 minutes Time was spent: preparing to see the patient(eg.review tests), obtaining and/or reviewing separately otained hiistory, ordering medications,tests, procedures, referring, communicating with other health career development coordinator, indepentently interpreting results, counseling the patient and care coordination
--- NOTE | 2023-09-21 10:54 | PDOC.CMDIS ---
Date of service: 09/21/23 Time of Service: 10:54 LACE Index Scoring Tool Questions: Length of Stay (in days): 4 - 6 Was the patient admitted via the E.D.?: Yes Comorbidities: Any Tumor E.D. Visits: 2 Answers: Total Score: 11 Risk of Readmission: High Risk Care Management Discharge Plan Reason for Hospitalization: sepsis Discharge Plan: Yolie will be discharged home with new home health services for nursing and PT. She will follow up with her community providers and plan of care and transport with family. Patient/Family Education Needs: Review of discharge instructions, activity, limitations, follow up plan, discuss Ask Me Three Services Needed at Discharge: Home Health Care Services SDOH Health Related Social Needs: No Data to Display
[2023-09-21 11:43] VITALS: RESP 2
== END 2023-09-21 12:12 | disposition home health service (06) | DRG 871 ==
LOC: ER 15:20 → ICU 16:15 → MS 09-17 14:35
PROVIDERS: Family Medicine; Admitting Provider Internal Medicine; Emergency Provider Student in an Organized Health Care Education/Training Program; PCP Nurse Practitioner Family; Visit Provider Internal Medicine
DX: A41.9 Sepsis, unspecified organism (principal); J18.9 Pneumonia, unspecified organism; N30.00 Acute cystitis without hematuria; C90.02 Multiple myeloma in relapse; D61.818 Other pancytopenia; D72.810 Lymphocytopenia; E86.0 Dehydration; R65.20 Severe sepsis without septic shock; D69.6 Thrombocytopenia, unspecified; D64.9 Anemia, unspecified; K21.00 Gastro-esophageal reflux disease with esophagitis, without bleeding; Z79.899 Other long term (current) drug therapy; B96.20 Unspecified Escherichia coli [E. coli] as the cause of diseases classified elsewhere
CPT/HCPCS: 00123; 36410; 36415; 36430; 71275; 80048; 80053; 82784; 82805; 84145; 86850; 86900; 86901; 86920; 87040; 87077; 87449; 87637; 87641; 93005; 93306; 96365; 96366; 96368; 97162; 97530; 99291; 71045; 80202; 81003; 81015; 83605; 83735; 83880; 83883; 84165; 84443; 84484; 85014; 85018; 85025; 85610; 85730; 86320; 86870; 86880; 86902; 86970; 87070; 87081; 87086; 87186; 87205; 87581; 87899; 93010; 94640; 94667; 94668; 94760; 99223; 99232; 99233; 99238; J0457; J1450; J1941; J1956; J2470; J3370; J3372; J3490; J7620; P9016

== ENCOUNTER 2023-10-14 10:41 | Outpatient (RCR) | payer MEDICARE, SELFPAY ==
[2023-10-14] MEDS: Normal Saline Flush 10 ML SYR IVP (10:53)
[2023-10-14 11:14] LABS: Abs Immature Grans 0.01 10^3/uL (0.0-0.06); Absolute Basophil Count 0.01 10^3/uL (0.0-0.2); Absolute Eosinophil Count 0.07 10^3/uL (0.0-0.7); Absolute Lymphocyte Count 0.75 10^3/uL (1.2-3.4); Absolute Monocyte Count 0.29 10^3/uL (0.1-0.8); Absolute Neutrophil Count 1.43 10^3/uL (1.2-6.7); Basophils % 0.4; Eosinophils % 2.7; HCT 23.8 % (36.0-46.0); HGB 7.9 g/dL (11.2-15.7); Immature Grans % 0.4; Lymphocytes % 29.3; MCH 34.2 pg (27.0-33.0); MCHC 33.2 % (32.0-36.0); MCV 103 fL (80-95); MPV 9.6 fL (8.0-11.0); Monocytes % 11.3; Neutrophils % 55.9; Platelet Count 129 10^3/uL (130-400); RBC 2.31 10^6/uL (3.93-5.22); RDW 18.4 % (11.7-14.6); RDW-SD 69.7 fL; WBC 2.56 10^3/uL (4.4-10.8)
[2023-10-14 11:30] LABS: ALT 15 U/L (14-59); AST 17 U/L (15-37); Albumin 2.4 g/dL (3.4-5.0); Alkaline Phosphatase 50 U/L (46-116); Anion Gap 12.3 mmol/L (3-11); BUN 16 mg/dL (7-18); Bilirubin, Total 0.2 mg/dL (0.2-1.0); CO2 24.7 mmol/L (21.0-32.0); CREATININE 1.2 mg/dL (0.55-1.02); Calcium 9.1 mg/dL (8.5-10.1); Chloride 99 mmol/L (98-107); Estimated GFR 44.08 (mL/min/1.73m2); Glucose 125 mg/dL (74-106); Potassium 4.8 mmol/L (3.5-5.1); Sodium 136 mmol/L (136-145); Total Protein 9.1 g/dL (6.4-8.2)
== END 2023-11-02 23:59 | disposition home or self-care (01) ==
LOC: INF 10:41
PROVIDERS: Nurse Practitioner Family; PCP Nurse Practitioner Family; Visit Provider Internal Medicine Hematology & Oncology
DX: C90.00 Multiple myeloma not having achieved remission (principal); Z45.2 Encounter for adjustment and management of vascular access device
CPT/HCPCS: 36591; 80053; 85025

== ENCOUNTER 2023-11-01 12:37 | Inpatient (IN) | payer MEDICARE, SELFPAY ==
[2023-11-01] VITALS (87 sets, daily range): BP systolic 92–122; BP diastolic 29–58; PULSE 78–92; RESP 8–32; TEMP 36.6–37.2; O2SAT 90–98
--- NOTE | 2023-11-01 12:45 | RT.EKG_ITS ---
APPROVED REPORT Exam: Resting ECG Reason for Exam: SOB Patient Location: E HR:82 bpm ECG Measurements Heart Rate 82 AXIS WV 154 P 31 QRSd 110 QRS -32 QT 387 T 76 QTc 452 Conclusion Sinus rhythm...normal P axis, V-rate 60- 99 Left axis deviation...QRS axis (-30,-90) Anterior infarct, old...Q >40mS, abnormal ST-T, V2-V5
--- NOTE | 2023-11-01 12:45 | DI.RAD_ITS ---
Exam(s) XR PORTABLE CHEST AP EXAM: XR PORTABLE CHEST AP CLINICAL HISTORY: SOB. TECHNIQUE: 2D digital imaging was performed. COMPARISON: CR XR CHEST 2V PA LATERAL from 12/31/2022 CR XR PORTABLE CHEST AP from 09/18/2023 FINDINGS: Single AP portable view. Distal tip of the Port-A-Cath is in the right atrium Heart size is upper normal. The mediastinum is not widened. There is a persistent bilateral interstitial pattern which was not evident on 12/31/2022 but is mildl y improved when compared to 09/18/2023. In addition, the previously present right pleural effusion i s not evident on this single portable view. IMPRESSION: Persistent interstitial disease, possibly element of pulmonary edema but the bibasilar more confluent infiltrates on the right pleural effusion have resolved. DATA REPOSITORY: RADIATION DOSE DELIVERED:
--- NOTE | 2023-11-01 13:08 | ED.GENADUL_ITS ---
Discharge Plan Disposition Patient Disposition: Admit to [facility] Condition: Stable Discharge Details Clinical Impression: CHF (congestive heart failure), Anemia Admit Date/Time: 11/01/23 19:27 Admit Provider: Cullen Childress Attending Provider: Cullen Childress Primary Care Provider: María Reynolds ED Provider: Bryce Giraldo Discharge Data Discharge Date/Time-TO BE ENTERED AT DEPARTURE: 11/01/23 21:02 HPI General Mode of arrival: wheelchair . Date/Time Provider Initiated Documentation: 11/01/23 12:46 . Limitations to Documentation: no limitations . Information obtained by: patient, RN notes reviewed and old records reviewed . HPI Narrative: 88-year-old female with a past medical history of multiple myeloma presents to the ER with chief complaint of cough, increased weakness shortness of breath decreased p.o. intake and low blood pressure. Patient reports green sputum with blood in her sputum. She reports nausea and epigastric pain with eating. Related Data Home Medications Medication Instructions Recorded Confirmed ascorbic acid (vitamin C) 1,000 mg 1,000 mg PO DAILY 07/29/23 11/03/23 tablet,extended release (C Complex) cholecalciferol (vitamin D3) 50 50 mcg PO DAILY 07/29/23 11/03/23 mcg (2,000 unit) capsule (Vitamin D3) vitamin B complex (B 1 tab PO DAILY 07/29/23 11/03/23 Complex-Vitamin B12 tablet) escitalopram oxalate 5 mg tablet 5 mg PO DAILY 09/15/23 11/03/23 omeprazole 20 mg capsule,delayed 20 mg PO DAILY 09/15/23 11/03/23 release albuterol sulfate 90 mcg/actuation 2 puff inhalation Q4H PRN 10/04/23 11/03/23 aerosol inhaler aspirin 81 mg tablet,delayed 81 mg PO DAILY 10/04/23 11/03/23 release (Adult Low Dose Aspirin) calcium carbonate 500 mg PO DAILY 10/04/23 11/03/23 gabapentin 100 mg capsule 100 mg PO TID 10/04/23 11/03/23 magnesium amino acid chelate 100 100 mg PO DAILY 10/04/23 11/03/23 mg tablet omega 3 850 nl-mkx-oed-fish oil 1 cap PO DAILY 10/04/23 11/03/23 1,400 mg capsule red yeast rice 600 mg capsule 600 mg PO BID 10/04/23 11/03/23 vit B complex 100 combo no.2 100 1 tab PO DAILY 10/04/23 11/03/23 mg tablet,extended release (Balanced B-100 Complex) acetaminophen 650 mg rectal 650 mg NC Q6H PRN fever, mild pain 11/01/23 11/03/23 suppository #6 supp bisacodyl 10 mg rectal suppository 10 mg NC daily PRN constipation #2 11/01/23 11/03/23 (Dulcolax (bisacodyl)) supp haloperidol lactate 2 mg/mL oral 1 mg (0.5 mL) PO Q6H PRN agitation 11/01/23 11/03/23 concentrate #15 mL hyoscyamine sulfate 0.125 mg 0.125 - 0.25 mg (1 - 2 x 0.125 mg) 11/01/23 11/03/23 disintegrating tablet PO Q4H PRN secretions #24 tabs lorazepam 1 mg tablet 1 mg PO Q4H PRN anxiety, YORK or 11/01/23 11/03/23 nausea #6 tabs morphine concentrate 100 mg/5 mL 5 - 20 mg (0.25 - 1 mL) PO Q1-4H 11/01/23 11/03/23 (20 mg/mL) oral solution PRN moderate to severe pain or shortness of breath #30 mL prochlorperazine maleate 10 mg 10 mg PO Q6H PRN nausea and 11/01/23 11/03/23 tablet vomiting #6 tabs docusate sodium 100 mg capsule 100 mg PO TID PRN #10 caps 11/04/23 (Colace) levofloxacin 750 mg tablet 750 mg PO Q48H #2 tabs 11/04/23 midodrine 2.5 mg tablet 2.5 mg PO TID #90 tabs 11/04/23 omeprazole 20 mg capsule,delayed 20 mg PO DAILY #30 caps 11/05/23 release Previous Rx's Medication Instructions Recorded acetaminophen 650 mg rectal 650 mg NC Q6H PRN fever, mild pain 11/01/23 suppository #6 supp bisacodyl 10 mg rectal suppository 10 mg NC daily PRN constipation #2 11/01/23 (Dulcolax (bisacodyl)) supp haloperidol lactate 2 mg/mL oral 1 mg (0.5 mL) PO Q6H PRN agitation 11/01/23 concentrate #15 mL hyoscyamine sulfate 0.125 mg 0.125 - 0.25 mg (1 - 2 x 0.125 mg) 11/01/23 disintegrating tablet PO Q4H PRN secretions #24 tabs lorazepam 1 mg tablet 1 mg PO Q4H PRN anxiety, YORK or 11/01/23 nausea #6 tabs morphine concentrate 100 mg/5 mL 5 - 20 mg (0.25 - 1 mL) PO Q1-4H 11/01/23 (20 mg/mL) oral solution PRN moderate to severe pain or shortness of breath #30 mL prochlorperazine maleate 10 mg 10 mg PO Q6H PRN nausea and 11/01/23 tablet vomiting #6 tabs docusate sodium 100 mg capsule 100 mg PO TID PRN #10 caps 11/04/23 (Colace) levofloxacin 750 mg tablet 750 mg PO Q48H #2 tabs 11/04/23 midodrine 2.5 mg tablet 2.5 mg PO TID #90 tabs 11/04/23 omeprazole 20 mg capsule,delayed 20 mg PO DAILY #30 caps 11/05/23 release Allergies Allergy/AdvReac Type Severity Reaction Status Date / Time cephalexin Allergy Severe vomiting, Unverified 11/01/23 12:46 diarrhea amoxicillin Allergy Intermediate rash Unverified 11/01/23 12:46 nitrofurantoin AdvReac Severe diarrhea Unverified 11/01/23 12:46 [From Macrobid] prednisone AdvReac Intermediate hyperactivi Unverified 11/01/23 12:46 ty General Stated Complaint: SOB SMITA: 3 Review of Systems All systems reviewed & are unremarkable except as noted in HPI and below Constitutional Constitutional: Reports as per HPI, Reports anorexia, Reports fatigue, Reports lethargy, Reports malaise, Reports poor appetite, Reports weakness and Reports weight loss Gastrointestinal Gastrointestinal: Reports heartburn, Reports nausea and Reports hematemesis (Reports spitting up blood) Genitourinary Genitourinary: Denies dysuria Neurologic Neurologic: Reports weakness Endocrine Endocrine: Reports fatigue Exam Narrative Exam Narrative: Constitutional: Alert and oriented x3. Appears stated age. Cachectic body habitus. Appears pale. Head: Normocephalic, no trauma. Eyes: Pupils PERRL, Red reflex noted, EOM's intact. Eyelids symmetrical without lesions, discharge, or swelling. ENT: Bilateral TM's WNL, External ear normal to inspection, no mastoid TTP, swelling, or erythema, Nasal turbinates WNL, no nasal discharge. Normal dentition, Posterior pharynx WNL, no exudate. Chest: RRR, Normal S1, S2, distal pulses intact. Resp: Lungs clear to auscultation bilaterally, no wheezes, rales, or rhonchi. Abdomen: Soft, non-distended, Normoactive bowel sounds all 4 quads. Musculoskeletal: Unable to assess gait moves all 4 extremities without difficulty. Skin: No suspicious rashes or lesions. Capillary refill less than 2 sec. Neurologic: Cranial nerves II-XII intact. Alert and oriented x 3. Motor: No de ficits noted. Sensory: Intact bilaterally all 4 extremities. Hematologic/Lymphatic: No ecchymosis, no lymphadenopathy. Course Vital Signs Vital signs: Vital Signs Temperature 37.2 C 11/01/23 12:43 Pulse 89 11/01/23 12:43 Respiratory Rate 18 11/01/23 12:43 Blood Pressure 100/34 L 11/01/23 12:43 Pulse Oximetry 97 11/01/23 12:43 Temperature 37.2 C 11/01/23 12:43 Temperature Source Temporal Artery Scan 11/01/23 12:43 Pulse 89 11/01/23 12:43 Respiratory Rate 18 11/01/23 12:43 Respiratory Effort Short of Breath 11/01/23 12:45 Blood Pressure 100/34 L 11/01/23 12:43 Blood Pressure Position Sitting 11/01/23 12:43 Pulse Oximetry 97 11/01/23 12:43 Pain Level 8 11/01/23 12:43 Comment burning with eating/coughin 11/01/23 12:43 Procedures Stool Hemoccult Procedural Steps Taken: stool placed in appropriate test area, developer placed on stool and control areas and controls appropriately positive and negative Hemoccult result: negative Medical Decision Making 88-year-old female with a past medical history of multiple myeloma presents to the ER with chief complaint of cough, increased weakness shortness of breath decreased p.o. intake and low blood pressure. Patient reports green sputum with blood in her sputum. She reports nausea and epigastric pain with eating. Hemoglobin is critically low with the results of 6.5 hematocrit 19.7, platelets are 97 chest x-ray shows no pneumonia, infiltrates have resolved please see repo rt. Will order 2 units of PRBC. 1422: Spoke with Blood bank regarding Type and screen, they have to send her blood out to red [employer] and due to her Chemo meds, panogluten, that it will be delayed. Wilner negative blood per blood bank. 1435: [facility] [place], [place] hem onc paged for consult regarding patient and blood products. 1454: Spoke with Elyssa Hem/onc Fellow who reports she has been referred to hospice at this time and has exhausted treatment options for the myeloma. Patient is guaiac negative. 40 of Protonix IV ordered. Care is to be handed off to oncoming provider CARLOS Ventura pending admission and blood transfusion. Working diagnosis is CHF exacerbation and acute on chronic anemia. This text was generated using [employer] dictation system, please disregard any oddities of phrase or misspellings. Medical Records Medical records reviewed: Yes I reviewed the patient's medical records. Imaging Data Radiologic Study: Imaging: X-Ray Radiologist's impression: EXAM: XR PORTABLE CHEST AP CLINICAL HISTORY: SOB. TECHNIQUE: 2D digital imaging was performed. COMPARISON: CR XR CHEST 2V PA LATERAL from 12/31/2022 CR XR PORTABLE CHEST AP from 09/18/2023 FINDINGS: Single AP portable view. Distal tip of the Port-A-Cath is in the right atrium Heart size is upper normal. The mediastinum is not widened. There is a persistent bilateral interstitial pattern which was not evident on 12/31/2022 but is mildly improved when compared to 09/18/2023. In addition, the previously present right pleural effusion is not evident on this single portable view. IMPRESSION: Persistent interstitial disease, possibly element of pulmonary edema but the bibasilar more confluent infiltrates on the right pleural effusion have resolved. Lab Data Lab results reviewed: Yes I reviewed the patient's lab results. Labs: Laboratory Tests Range/Units 11/01/23 11/01/23 13:06 13:59 WBC (4.4-10.8) 10^3/uL 3.35 L RBC (3.93-5.22) 10^6/uL 1.86 L Hgb (11.2-15.7) g/dL 6.5 L* Hct (36.0-46.0) % 19.7 L* MCV (80-95) fL 106 H MCH (27.0-33.0) pg 34.9 H MCHC (32.0-36.0) % 33.0 RDW (11.7-14.6) % 18.4 H Plt Count (130-400) 10^3/uL 97 L MPV (8.0-11.0) fL 9.9 Immature Gran % 0.6 Neutrophils % 67.1 Lymphocytes % 22.7 Monocytes % 7.2 Eosinophils % 1.8 Basophils % 0.6 Nucleated RBC % (0.0-0.3) % 0.0 Absolute Neutrophils (1.2-6.7) 10^3/uL 2.25 Absolute Lymphocytes (1.2-3.4) 10^3/uL 0.76 L Absolute Monocytes (0.1-0.8) 10^3/uL 0.24 Absolute Eosinophils (0.0-0.7) 10^3/uL 0.06 Absolute Basophils (0.0-0.2) 10^3/uL 0.02 RBC Morphology See Below Anisocytosis 2+ Macrocytosis 2+ PT (9.1-11.1) sec 12.1 H INR (0.9-1.1) 1.2 H D-Dimer (<500) ng/mlFEU 896 H Sodium (136-145) mmol/L 135 L Potassium (3.5-5.1) mmol/L 4.5 Chloride (98-107) mmol/L 99 Carbon Dioxide (21.0-32.0) mmol/L 22.3 Anion Gap (3-11) mmol/L 13.7 H BUN (7-18) mg/dL 21 H Creatinine (0.55-1.02) mg/dL 1.6 H Est GFR (CKD-EPI 2020) (mL/min/1.73m2) 31.21 Glucose (74-106) mg/dL 112 H Calcium (8.5-10.1) mg/dL 9.5 Magnesium (1.8-2.4) mg/dL 2.1 Total Bilirubin (0.2-1.0) mg/dL 0.3 AST (15-37) U/L 25 ALT (14-59) U/L 27 Alkaline Phosphatase (46-116) U/L 69 Troponin I (< or =60) ng/L < 50 NT-Pro-B Natriuret Pep (<300) pg/mL 19160 H Total Protein (6.4-8.2) g/dL 10.4 H Albumin (3.4-5.0) g/dL 2.3 L Crossmatch See Detail Quality:SDOH Health Related Social Needs: No Data to Display PFSH All Active Problems (Updated 11/06/23 @ 00:01 by CHAS ARCE) Discharge planning issues (Acute) Urinary retention (Acute) CLAIRE (acute kidney injury) (Acute) Palliative care patient (Acute) Severe anemia (Acute) Pneumonia (Acute) Aspiration pneumonia (Acute) Urinary tract infection (Acute) CHF (congestive heart failure) (Acute) Multiple myeloma not having achieved remission (Acute) Community acquired pneumonia (Acute) GERD with esophagitis (Chronic) Multiple myeloma in relapse (Chronic) Bandemia (Acute) Thrombocytopenia (Chronic) Leukopenia (Acute) Medical History Paresthesia Fatigue History of COVID-19 Presence of hip joint prosthesis Prediabetes Astigmatism Myopia Acute upper respiratory infection Atherosclerosis of arteries of extremities Tear film insufficiency Atherosclerosis of artery History of malignant neoplasm of skin Presbyopia Lower urinary tract infectious disease Hypermetropia Depression 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 Low back pain 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 Pain in thoracic spine Pure hypercholesterolemia Dyspnea Abnormal weight loss History of urinary system disease GERD (gastroesophageal reflux disease) Basal cell carcinoma of skin Macular drusen Lumbosacral radiculopathy Actinic keratosis Insomnia Spinal stenosis of lumbar region Increased frequency of urination Multiple myeloma Monoclonal gammopathy COVID-19 Surgical History History of right hip replacement 09/2020 S/P lumbar fusion 03/2019 Mohs defect of nose x4 S/P ORIF (open reduction internal fixation) fracture 2013 right wrist fracture H/O cataract extraction 2007 H/O: hysterectomy H/O colonoscopy 2001 History of tonsillectomy age 12 History of artificial eye lens Social History Smoking/Tobacco Use Status: Never Smoking risk assessment performed?: Yes Alcohol Intake: current Alcohol Intake frequency: holidays/special occasions only Drug use: Never Substance use type: does not use Housing: house Do you feel safe at home: Yes Do you feel safe in your relationship?: Yes Additional Social history: lives along with cats Sign Out Sign Out Data: Sign Out Comment: Pending blood transfusion and need for admission. CHF exacerbation and acute on chronic anemia. H&H 6&16, Hx of Multiple myeloma. Here with weakness, decreased appetite and spitting up blood. Last updated by Sue Wilde NP at 11/01/23 15:38
[2023-11-01 13:20] LABS: Abs Immature Grans 0.02 10^3/uL (0.0-0.06); Absolute Basophil Count 0.02 10^3/uL (0.0-0.2); Absolute Eosinophil Count 0.06 10^3/uL (0.0-0.7); Absolute Lymphocyte Count 0.76 10^3/uL (1.2-3.4); Absolute Monocyte Count 0.24 10^3/uL (0.1-0.8); Absolute Neutrophil Count 2.25 10^3/uL (1.2-6.7); Basophils % 0.6; Eosinophils % 1.8; Immature Grans % 0.6; Lymphocytes % 22.7; MCH 34.9 pg (27.0-33.0); MPV 9.9 fL (8.0-11.0); Monocytes % 7.2; Neutrophils % 67.1; RBC 1.86 10^6/uL (3.93-5.22); RDW 18.4 % (11.7-14.6); RDW-SD 70.6 fL; WBC 3.35 10^3/uL (4.4-10.8)
[2023-11-01] MEDS: Normal Saline-STERILE FIELD 0.9% 10 ML SYR (13:20)
[2023-11-01 13:22] LABS: HGB 6.5 g/dL (11.2-15.7)
[2023-11-01 13:23] LABS: HCT 19.7 % (36.0-46.0)
[2023-11-01 13:30] LABS: INR 1.2 (0.9-1.1); Prothrombin Time 12.1 sec (9.1-11.1)
[2023-11-01 13:35] LABS: Anisocytosis 2+; Diff Comment RBC Morph Reviewed; MCV 106 fL (80-95); Macrocytosis 2+; Platelet Count 97 10^3/uL (130-400)
[2023-11-01 13:48] LABS: ALT 27 U/L (14-59); AST 25 U/L (15-37); Albumin 2.3 g/dL (3.4-5.0); Alkaline Phosphatase 69 U/L (46-116); Anion Gap 13.7 mmol/L (3-11); BUN 21 mg/dL (7-18); Bilirubin, Total 0.3 mg/dL (0.2-1.0); CO2 22.3 mmol/L (21.0-32.0); CREATININE 1.6 mg/dL (0.55-1.02); Calcium 9.5 mg/dL (8.5-10.1); Chloride 99 mmol/L (98-107); Estimated GFR 31.21 (mL/min/1.73m2); Glucose 112 mg/dL (74-106); Magnesium 2.1 mg/dL (1.8-2.4); NT-proBNP 16578 pg/mL (<300); Potassium 4.5 mmol/L (3.5-5.1); Sodium 135 mmol/L (136-145); Total Protein 10.4 g/dL (6.4-8.2); Troponin I < 50 ng/L (< or =60)
[2023-11-01 13:56] LABS: D-Dimer 896 ng/mlFEU (<500)
[2023-11-01 14:39] LABS: Bilirubin Negative (Negative); Blood Negative (Negative); Clarity Clear (Clear); Glucose Negative (Negative); Ketones Negative (Negative); Leukocyte Esterase Small (Negative); Nitrite Negative (Negative); Specific Gravity 1.015 (1.005-1.025); Urobilinogen 0.2 mg/dL (Up to 0.2)
[2023-11-01 14:49] LABS: Epithelial Cells Rare HPF (Negative); Other Cells Rare Transitional (Negative); RBC 0-2 HPF (0-2)
[2023-11-01 14:50] LABS: Bacteria Rare HPF (Negative); C & S Indicated? Yes; Casts Negative LPF (Negative); Crystals Negative HPF (Negative); Mucus Negative (Negative)
[2023-11-01] MEDS: Pantoprazole 40 MG VIAL IVP ×2 (15:56→23:05)
--- NOTE | 2023-11-01 15:56 | ED.PROG_ITS ---
Date of service: 11/01/23 Time of Service: 15:57 Medical Decision Making This dictation utilizes [id number] dictation software and may contain unedited grammatical errors. Patient seen in sign-out from Sue Wilde NP- please see her complete note. Essentially this 88 y/o F presents to ED today with a chief complaint of 2 weeks of cough, increasing shortness of breath and weakness, decreased p.o. intake and low blood pressure seen at PCP, and hematemesis. Patient endorses new green sputum and new blood in sputum, the patient is weak in triage. The patient is DNR DNI and has a history of multiple myeloma awaiting hospice referral but wants possible blood transfusion today. Apparently due to her past chemo her blood needs to be hebrew teacher to [facility] and back for some specialized modification before it can be infused and the earliest she can receive a blood transfusion is tomorrow morning here. Patient's H&H was 16 here. She has a new BNP of 16,000 which is acute compared to prior values, her BP has been somewhat soft prior to signout. Patients' medical history: Paresthesia, vitreous degeneration of both eyes, scleritis, malignant melanoma of upper limb, GERD, lumbar radiculopathy, multiple myeloma, monoclonal gammopathy, history of hysterectomy, history of CHF, GERD, anemia, thrombocytopenia, leukopenia. Family and social history: Here with her daughter. Pertinent exam findings / vital signs include fine crackles to my exam, no pitting edema of legs. Differential / pathologies of concern include CHF, anemia. Diagnostic studies of: -Reviewed labs from prior provider: -Anemia of 6.5, hematocrit 19.7, platelets 97, no absolute neutropenia -CMP shows elevated BUN, acute kidney injury to 1.6 from a baseline of 0.9, admittable CLAIRE -BNP elevated at 16,500 -Serial troponins negative -Coags show PT 12.1, INR 1.2, D-dimer 896 -Guaiac negative per sign-out provider -UA shows 10-20 WBCs with leuk esterase, Cx pending -Type and Screen shows O POS in past, with negative Direct Antiglobulin test 09/17/23 - per Blood Bank @ 1800- blood will be here in 5-6 hours. -CXR shows question pulmonary edema -EKG shows sinus rhythm at 82 bpm with P waves followed by narrow complex QRS with left axis deviation, poor R wave progression, submillimeter ST depression in V5 6, no reciprocal ST elevations, normal QT QTc Interventions of: -40mg IV protonix. NO fluids had been given yet. prior provider questions possible Lasix with re-eval, I did hold off on this until patient is on in- patient floor- patients blood pressure is somewhat soft, and she refuses pressors- is in no respiratory distress from pulmonary edema -BP 102/41 -Spoke to Blood Bank at 1639, patient is requiring screening for Lana Ag, and was antibody positive- due to patients hemoptysis and soft BP and hematemesis I did ask for STAT blood, they will try to obtain 2 units via hebrew teacher. -Dr Childress accepted for admission at 1915. M/S bed. Will likely need palliative care consult inpatient as the patient is open to comfort care, and asked for physician-assisted suicide while in ED. Family aware. Disposition of CHF (Congestive Heart Failure), Anemia. Patient verbalized understanding of the plan and return to ED criteria and engaged in shared decision making. Medical Records Medical records reviewed: Yes I reviewed the patient's medical records. Imaging Data Radiologic Study: Attestation: I personally reviewed and interpreted this imaging study as follows: Imaging: X-Ray Radiologist's impression: EXAM: XR PORTABLE CHEST AP CLINICAL HISTORY: SOB. TECHNIQUE: 2D digital imaging was performed. COMPARISON: CR XR CHEST 2V PA LATERAL from 12/31/2022 CR XR PORTABLE CHEST AP from 09/18/2023 FINDINGS: Single AP portable view. Distal tip of the Port-A-Cath is in the right atrium Heart size is upper normal. The mediastinum is not widened. There is a persistent bilateral interstitial pattern which was not evident on 12/31/2022 but is mildly improved when compared to 09/18/2023. In addition, the previously present right pleural effusion is not evident on this single portable view. IMPRESSION: Persistent interstitial disease, possibly element of pulmonary edema but the bibasilar more confluent infiltrates on the right pleural effusion have resolved. Lab Data Lab results reviewed: Yes I reviewed the patient's lab results. Labs: 11/01/23 14:25 Urine - Reflex from Ua Urine Culture - Pending Laboratory Tests Range/Units 11/01/23 11/01/23 11/01/23 13:06 13:59 14:25 WBC (4.4-10.8) 10^3/uL 3.35 L RBC (3.93-5.22) 10^6/uL 1.86 L Hgb (11.2-15.7) g/dL 6.5 L* Hct (36.0-46.0) % 19.7 L* MCV (80-95) fL 106 H MCH (27.0-33.0) pg 34.9 H MCHC (32.0-36.0) % 33.0 RDW (11.7-14.6) % 18.4 H Plt Count (130-400) 10^3/uL 97 L MPV (8.0-11.0) fL 9.9 Immature Gran % 0.6 Neutrophils % 67.1 Lymphocytes % 22.7 Monocytes % 7.2 Eosinophils % 1.8 Basophils % 0.6 Nucleated RBC % (0.0-0.3) % 0.0 Absolute Neutrophils (1.2-6.7) 10^3/uL 2.25 Absolute Lymphocytes (1.2-3.4) 10^3/uL 0.76 L Absolute Monocytes (0.1-0.8) 10^3/uL 0.24 Absolute Eosinophils (0.0-0.7) 10^3/uL 0.06 Absolute Basophils (0.0-0.2) 10^3/uL 0.02 RBC Morphology See Below Anisocytosis 2+ Macrocytosis 2+ PT (9.1-11.1) sec 12.1 H INR (0.9-1.1) 1.2 H D-Dimer (<500) ng/mlFEU 896 H Sodium (136-145) mmol/L 135 L Potassium (3.5-5.1) mmol/L 4.5 Chloride (98-107) mmol/L 99 Carbon Dioxide (21.0-32.0) mmol/L 22.3 Anion Gap (3-11) mmol/L 13.7 H BUN (7-18) mg/dL 21 H Creatinine (0.55-1.02) mg/dL 1.6 H Est GFR (CKD-EPI 2020) (mL/min/1.73m2) 31.21 Glucose (74-106) mg/dL 112 H Calcium (8.5-10.1) mg/dL 9.5 Magnesium (1.8-2.4) mg/dL 2.1 Total Bilirubin (0.2-1.0) mg/dL 0.3 AST (15-37) U/L 25 ALT (14-59) U/L 27 Alkaline Phosphatase (46-116) U/L 69 Troponin I (< or =60) ng/L < 50 NT-Pro-B Natriuret Pep (<300) pg/mL 77383 H Total Protein (6.4-8.2) g/dL 10.4 H Albumin (3.4-5.0) g/dL 2.3 L Urine Color (Yellow) Yellow Urine Clarity (Clear) Clear Urine pH (5-8) 6.0 Ur Specific [place] (1.005-1.025) 1.015 Urine Protein (Neg-Trace) mg/dL 30 H Urine Ketones (Negative) mg/dL Negative Urine Blood (Negative) Negative Urine Nitrite (Negative) Negative Urine Bilirubin (Negative) Negative Urine Urobilinogen (Up to 0.2) mg/dL 0.2 Ur Leukocyte Esterase (Negative) Small H Urine RBC (0-2) HPF 0-2 Urine WBC (0-5) HPF 10-20 H Ur Epithelial Cells (Negative) HPF Rare Urine Crystals (Negative) HPF Negative Urine Bacteria (Negative) HPF Rare Urine Casts (Negative) LPF Negative Urine Mucus (Negative) Negative Urine Other (Negative) Rare Transitional Ur Culture Indicated? Yes Urine Glucose (Negative) mg/dL Negative Crossmatch See Detail Range/Units 11/01/23 15:56 WBC (4.4-10.8) 10^3/uL RBC (3.93-5.22) 10^6/uL Hgb (11.2-15.7) g/dL Hct (36.0-46.0) % MCV (80-95) fL MCH (27.0-33.0) pg MCHC (32.0-36.0) % RDW (11.7-14.6) % Plt Count (130-400) 10^3/uL MPV (8.0-11.0) fL Immature Gran % Neutrophils % Lymphocytes % Monocytes % Eosinophils % Basophils % Nucleated RBC % (0.0-0.3) % Absolute Neutrophils (1.2-6.7) 10^3/uL Absolute Lymphocytes (1.2-3.4) 10^3/uL Absolute Monocytes (0.1-0.8) 10^3/uL Absolute Eosinophils (0.0-0.7) 10^3/uL Absolute Basophils (0.0-0.2) 10^3/uL RBC Morphology Anisocytosis Macrocytosis PT (9.1-11.1) sec INR (0.9-1.1) D-Dimer (<500) ng/mlFEU Sodium (136-145) mmol/L Potassium (3.5-5.1) mmol/L Chloride (98-107) mmol/L Carbon Dioxide (21.0-32.0) mmol/L Anion Gap (3-11) mmol/L BUN (7-18) mg/dL Creatinine (0.55-1.02) mg/dL Est GFR (CKD-EPI 2020) (mL/min/1.73m2) Glucose (74-106) mg/dL Calcium (8.5-10.1) mg/dL Magnesium (1.8-2.4) mg/dL Total Bilirubin (0.2-1.0) mg/dL AST (15-37) U/L ALT (14-59) U/L Alkaline Phosphatase (46-116) U/L Troponin I (< or =60) ng/L < 50 NT-Pro-B Natriuret Pep (<300) pg/mL Total Protein (6.4-8.2) g/dL Albumin (3.4-5.0) g/dL Urine Color (Yellow) Urine Clarity (Clear) Urine pH (5-8) Ur Specific [place] (1.005-1.025) Urine Protein (Neg-Trace) mg/dL Urine Ketones (Negative) mg/dL Urine Blood (Negative) Urine Nitrite (Negative) Urine Bilirubin (Negative) Urine Urobilinogen (Up to 0.2) mg/dL Ur Leukocyte Esterase (Negative) Urine RBC (0-2) HPF Urine WBC (0-5) HPF Ur Epithelial Cells (Negative) HPF Urine Crystals (Negative) HPF Urine Bacteria (Negative) HPF Urine Casts (Negative) LPF Urine Mucus (Negative) Urine Other (Negative) Ur Culture Indicated? Urine Glucose (Negative) mg/dL Crossmatch Quality:[facility] [facility] Related Social Needs: No Data to Display Sign Out Sign Out Data: Sign Out Comment: Pending blood transfusion and need for admission. CHF exacerbation and acute on chronic anemia. H&H 6&16, Hx of Multiple myeloma. Here with weakness, decreased appetite and spitting up blood. Last updated by Sue Wilde NP at 11/01/23 15:38 Discharge Plan Disposition Patient Disposition: Admit to [facility] Condition: Stable Discharge Details Clinical Impression: CHF (congestive heart failure), Anemia Primary Care Provider: María Reynolds ED Provider: Bryce Giraldo Home Meds and New Rx's Prescriptions: No Action gabapentin 100 mg capsule 100 mg PO TID albuterol sulfate 90 mcg/actuation HFA aerosol inhaler 2 puff inhalation Q4H PRN Rx Instructions: for wheezing aspirin [Adult Low Dose Aspirin] 81 mg tablet,delayed release (DR/EC) 81 mg PO DAILY Balanced B-100 Complex 100 mg tablet extended release 1 tab PO DAILY calcium carbonate 500 mg calcium (1,250 mg) tablet 500 mg PO DAILY magnesium amino acid chelate 100 mg tablet 100 mg PO DAILY omega [id number] oil 850-1,400 mg capsule 1 cap PO DAILY red yeast rice 600 mg capsule 600 mg PO BID Rx Instructions: give with meal/snack acetaminophen 650 mg suppository 650 mg SD Q6H PRN (Reason: fever, mild pain) Qty: 6 0RF Rx Instructions: Hospice Patient hyoscyamine sulfate 0.125 mg tablet,disintegrating 0.125 - 0.25 mg PO Q4H PRN (Reason: secretions) Qty: 24 0RF Rx Instructions: Hospice Patient lorazepam 1 mg tablet 1 mg PO Q4H PRN (Reason: anxiety, [place] or nausea) Qty: 6 5RF Rx Instructions: Hospice Patient haloperidol lactate 2 mg/mL concentrate 1 mg PO Q6H PRN (Reason: agitation) Qty: 15 0RF Rx Instructions: Hospice Patient morphine concentrate 100 mg/5 mL (20 mg/mL) solution 5 - 20 mg PO Q1-4H MDD 5 mL PRN (Reason: moderate to severe pain or shortness of breath) Qty: 30 0RF Rx Instructions: Hospice Patient prochlorperazine maleate 10 mg tablet 10 mg PO Q6H PRN (Reason: nausea and vomiting) Qty: 6 0RF Rx Instructions: Hospice Patient bisacodyl [Dulcolax (bisacodyl)] 10 mg suppository 10 mg SD daily PRN (Reason: constipation) Qty: 2 0RF Rx Instructions: Hospice Patient Insert 1 supp SD Daily PRN constipation (no BM in 3 days) vitamin B complex [B Complex-Vitamin B12] Tablet 1 tab PO DAILY cholecalciferol (vitamin D3) [Vitamin D3] 50 mcg (2,000 unit) capsule 50 mcg PO DAILY C Complex 1,000 mg tablet extended release 1,000 mg PO DAILY omeprazole 20 mg capsule,delayed release(DR/EC) 20 mg PO DAILY Patient Comments: need refill on prescription escitalopram oxalate 5 mg tablet 5 mg PO DAILY
[2023-11-01 16:29] LABS: Troponin I < 50 ng/L (< or =60)
--- NOTE | 2023-11-01 19:14 | W.PM.HP.N ---
Date of service: 11/01/23 Time of Service: 19:14 Assessment and Plan Assessment and plan (1) Anemia: Start date: 11/01/23 Status: Chronic Assessment and plan: This is an 88-year-old lady with end-stage multiple myeloma having exacerbation of chronic anemia which is symptomatic with increased weakness. She will have transfusion of 2 units of packed red blood cells once available in the morning. There is no emergency to this transfusion but hopefully she will feel better with less fatigue after transfusion. Long-term plans are for arranging hospice for home care with family to discuss this further with hospice consultation in the morning. They are not opposed to treating acute problems temporarily the patient to be placed on antibiotic therapy for UTI and possible persistent infiltrates in the lungs along with immunocompromise state having multiple myeloma. Patient is a DNR/DNI. Qualifiers: Anemia type: unspecified type Qualified Code(s): D64.9 - Anemia, unspecified (2) CHF (congestive heart failure): Start date: 11/08/23 Status: Acute Assessment and plan: Worsening by symptoms and imaging as well as increasing BNP. Recent echocardiogram in September 2023 did reveal preserved left ventricular ejection fraction with valvular disease. She will be given IV Lasix but this may exacerbate her moderate dehydration with worsening creatinine. Blood transfusion may help with her renal function. Will avoid IV hydration at this time because of worsening CHF. With her marked change in BNP, it appears CHF is the main reason for her respiratory symptoms though possible pneumonia will be treated as well. Prognosis poor with multiorgan failure. Qualifiers: Heart failure chronicity: acute Heart failure type: diastolic Qualified Code(s): I50.31 - Acute diastolic (congestive) heart failure (3) Pneumonia: Start date: 11/01/23 Status: Acute Assessment and plan: Possible infiltrate with clearing associated with pleural effusion. Patient will be placed on Levaquin which will also cover possible UTI. This appears to be less of a problem than her CHF. Qualifiers: Laterality: bilateral Lung location: lower lobe of lung Pneumonia type: due to unspecified organism Qualified Code(s): J18.9 - Pneumonia, unspecified organism (4) Urinary tract infection: Start date: 11/01/23 Status: Acute Assessment and plan: Urine culture with IV Levaquin for now converting to oral therapy as appropriate if urine culture reveals. Patient does have multiple allergies with limited choices. Qualifiers: Hematuria presence: without hematuria Urinary tract infection type: acute cystitis Qualified Code(s): N30.00 - Acute cystitis without hematuria (5) Multiple myeloma in relapse: Status: Chronic Assessment and plan: Not responding well to therapy with patient to have hospice consultation. (6) GERD with esophagitis: Status: Chronic Assessment and plan: Continue PPI. Qualifiers: Esophagitis bleeding: without hemorrhage Qualified Code(s): K21.00 - Gastro-esophageal reflux disease with esophagitis, without bleeding (7) Frequent nosebleeds: Start date: 11/01/23 Status: Acute Assessment and plan: Patient recently has had at least 4 recent episodes suggesting nosebleed with patient coughing small clots of blood. She does have mild thrombocytopenia associated with multiple myeloma. Monitor with symptomatic care. History of Present Illness History of Present Illness Chief Complaint: Shortness of breath with anemia and multiple myeloma Narrative: This is an 88-year-old female patient presented to the ED with a cough for 2 weeks and increasing shortness of breath with weakness. She has had less intake recently and seen by her PCP recently with ongoing treatment for multiple myeloma though this is daily and she is awaiting hospice referral. She does endorse coughing or spitting up blood 4 times the last days and was found to be once again anemic which will require transfusion because of her weakness and symptoms. She is difficult to crossmatch and this is pending to be given in the morning. She has not an acute distress with hemodynamic status fairly stable but is extremely weak. Her hemoglobin is below 7. The family does want a hospice referral but has not opposed to transfusion. She has been losing weight with her disease process and decreased intake. She also has multiple other problems which appear to be fairly stable though she has required treatment for CHF recently and appears to have had pneumonia recently which has not completely cleared by follow-up x-ray. In the ED she was found to have probable worsening CHF on x-ray as well. She was given Lasix in the ED and will continue IV Lasix for treatment of her apparent fluid overload which could be worsened by blood transfusion with planned 2 units of packed red blood cells in the morning. Her troponin was negative and EKG showed sinus rhythm with no acute ST-T changes. BNP was markedly elevated from baseline at 16,578 compared to 5-8000. Urinalysis was positive with culture done and chest x-ray did reveal possibility of improving infiltrate as mentioned. She did appear to have worsening renal functions which may go along with her multiple myeloma and because of question of worsening CHF she will not have IV hydration though she does have a positive lactic acid. Hopefully transfusion with packed red blood cells may help with some volume repletion. Patient overall is failing and seems to ruminate over her multiple problems with the family seeming to avoid discussing hospice in front of her with nursing staff. They do wish to have hospice evaluation and she already is on some the usual medical treatment for comfort care at home. Prognosis is poor. She is a DNR/DNI. Review of Systems Narrative: 13 point review of system positive for weight loss with decreased intake patient is becoming more frail. Otherwise as per HPI or stable. PFSH All Active Problems (Updated 11/01/23 @ 22:39 by Cullen Childress) Pneumonia (Acute) Aspiration pneumonia (Acute) Frequent nosebleeds (Acute) Urinary tract infection (Acute) CHF (congestive heart failure) (Acute) Multiple myeloma not having achieved remission (Acute) Community acquired pneumonia (Acute) GERD with esophagitis (Chronic) Multiple myeloma in relapse (Chronic) Anemia (Chronic) Bandemia (Acute) Thrombocytopenia (Chronic) Leukopenia (Acute) Medical History Paresthesia Fatigue History of COVID-19 Presence of hip joint prosthesis Prediabetes Astigmatism Myopia Acute upper respiratory infection Atherosclerosis of arteries of extremities Tear film insufficiency Atherosclerosis of artery History of malignant neoplasm of skin Presbyopia Lower urinary tract infectious disease Hypermetropia Depression 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 Low back pain 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 Pain in thoracic spine Pure hypercholesterolemia Dyspnea Abnormal weight loss History of urinary system disease GERD (gastroesophageal reflux disease) Basal cell carcinoma of skin Macular drusen Lumbosacral radiculopathy Actinic keratosis Insomnia Spinal stenosis of lumbar region Increased frequency of urination Multiple myeloma Monoclonal gammopathy COVID-19 Surgical History History of right hip replacement 09/2020 S/P lumbar fusion 03/2019 Mohs defect of nose x4 S/P ORIF (open reduction internal fixation) fracture 2013 right wrist fracture H/O cataract extraction 2007 H/O: hysterectomy H/O colonoscopy 2001 History of tonsillectomy age 12 History of artificial eye lens Social History Smoking/Tobacco Use Status: Never Smoking risk assessment performed?: Yes Alcohol Intake: current Alcohol Intake frequency: holidays/special occasions only Drug use: Never Substance use type: does not use Housing: house Do you feel safe at home: Yes Do you feel safe in your relationship?: Yes Additional Social history: lives along with cats Meds Allergies and Home Medications Allergies Allergy/AdvReac Type Severity Reaction Status Date / Time cephalexin Allergy Severe vomiting, Unverified 11/01/23 12:46 diarrhea amoxicillin Allergy Intermediate rash Unverified 11/01/23 12:46 nitrofurantoin AdvReac Severe diarrhea Unverified 11/01/23 12:46 [From Macrobid] prednisone AdvReac Intermediate hyperactivi Unverified 11/01/23 12:46 ty Home Medications Medication Instructions Recorded Confirmed Type ascorbic acid (vitamin C) 1,000 mg 1,000 mg PO DAILY 07/29/23 11/01/23 History tablet,extended release (C Complex) cholecalciferol (vitamin D3) 50 50 mcg PO DAILY 07/29/23 11/01/23 History mcg (2,000 unit) capsule (Vitamin D3) vitamin B complex (B 1 tab PO DAILY 07/29/23 11/01/23 History Complex-Vitamin B12 tablet) escitalopram oxalate 5 mg tablet 5 mg PO DAILY 09/15/23 11/01/23 History omeprazole 20 mg capsule,delayed 20 mg PO DAILY 09/15/23 11/01/23 History release albuterol sulfate 90 mcg/actuation 2 puff inhalation Q4H PRN 10/04/23 11/01/23 History aerosol inhaler aspirin 81 mg tablet,delayed 81 mg PO DAILY 10/04/23 11/01/23 History release (Adult Low Dose Aspirin) calcium carbonate 500 mg PO DAILY 10/04/23 11/01/23 History gabapentin 100 mg capsule 100 mg PO TID 10/04/23 11/01/23 History magnesium amino acid chelate 100 100 mg PO DAILY 10/04/23 11/01/23 History mg tablet omega 3 850 [id number] oil 1 cap PO DAILY 10/04/23 11/01/23 History 1,400 mg capsule red yeast rice 600 mg capsule 600 mg PO BID 10/04/23 11/01/23 History vit B complex 100 combo no.2 100 1 tab PO DAILY 10/04/23 11/01/23 History mg tablet,extended release (Balanced B-100 Complex) acetaminophen 650 mg rectal 650 mg AK Q6H PRN fever, mild pain 11/01/23 11/01/23 Rx suppository #6 supp bisacodyl 10 mg rectal suppository 10 mg AK daily PRN constipation #2 11/01/23 11/01/23 Rx (Dulcolax (bisacodyl)) supp haloperidol lactate 2 mg/mL oral 1 mg (0.5 mL) PO Q6H PRN agitation 11/01/23 11/01/23 Rx concentrate #15 mL hyoscyamine sulfate 0.125 mg 0.125 - 0.25 mg (1 - 2 x 0.125 mg) 11/01/23 11/01/23 Rx disintegrating tablet PO Q4H PRN secretions #24 tabs lorazepam 1 mg tablet 1 mg PO Q4H PRN anxiety, [place] or 11/01/23 11/01/23 Rx nausea #6 tabs morphine concentrate 100 mg/5 mL 5 - 20 mg (0.25 - 1 mL) PO Q1-4H 11/01/23 11/01/23 Rx (20 mg/mL) oral solution PRN moderate to severe pain or shortness of breath #30 mL prochlorperazine maleate 10 mg 10 mg PO Q6H PRN nausea and 11/01/23 11/01/23 Rx tablet vomiting #6 tabs Exam Narrative Exam Narrative: General: Patient appears older than stated age, frail appearing and almost cachectic. She is in moderate distress from her discomfort and shortness of breath. She is alert and oriented x 3. HEENT: Normocephalic, eyes with pupils equal and react to light symmetrically, extraocular movement intact and sclera icteric. Oropharynx with dry mucosa and poor dentition. No obvious blood over the nares. Neck: Supple without JVD. Back: Kyphotic without CVA tenderness. Lungs: Coarse inspiratory crackles over the right more than left lung field as well as over the bases with decreased aeration especially over the right hemithorax. Bronchovesicular breath sounds diffusely. Breast: Exam deferred. Heart: There was a systolic murmur apex with regular rate and rhythm and no appreciable gallop. Abdomen: Scaphoid contour, soft and nontender to palpation no palpable hepatosplenomegaly. Bowel sounds positive all quadrants. Extremities: Without clubbing, cyanosis or grossly pitting edema with trace nonpitting edema ankles and feet. Fair capillary refill. Skin: Pale, warm and dry. Neuro: Current nerves II through XII gross intact, no focalizing motor deficits and no tremor. Patient very generally weak. Psych: Flattened affect with depressed mood. Soft, monotonous tone to voice with slow speech. No abnormal thought processes. Remote and recent memory appear to be grossly intact. Results Imaging Imaging Studies: EXAM: XR PORTABLE CHEST AP CLINICAL HISTORY: SOB. TECHNIQUE: 2D digital imaging was performed. COMPARISON: CR XR CHEST 2V PA LATERAL from 12/31/2022 CR XR PORTABLE CHEST AP from 09/18/2023 FINDINGS: Single AP portable view. Distal tip of the Port-A-Cath is in the right atrium Heart size is upper normal. The mediastinum is not widened. There is a persistent bilateral interstitial pattern which was not evident on 12/31/2022 but is mildly improved when compared to 09/18/2023. In addition, the previously present right pleural effusion is not evident on this single portable view. IMPRESSION: Persistent interstitial disease, possibly element of pulmonary edema but the bibasilar more confluent infiltrates on the right pleural effusion have resolved. Date of Exam: 09/17/23 Admission Date: 09/15/23 : 1935 Age: 88 EXAM: Comprehensive 2D, Doppler, and color-flow Echocardiogram Patient Location: In-Patient Room/Bed: [address] Machine Operator: Cindy Mendoza RDCS (AE) Indications: Sepsis, Evaluate LV and RV function Other Information Study Quality: Adequate Conclusion Normal left ventricular wall thickness chamber size. Ejection fraction is 55 %. Wall motion is normal Normal right ventricular size and function Both atria are moderately enlarged Aortic valve is mildly sclerotic and trileaflet without stenosis or regurgitation Mild mitral annular calcification. Mild mitral regurgitation Ascending aorta measure 3.57 cm Labs 11/01/23 13:06 11/01/23 13:06 Labs: Laboratory Results - last 24 hr 11/01/23 11/01/23 11/01/23 13:06 13:59 14:25 WBC 3.35 L RBC 1.86 L Hgb 6.5 L* Hct 19.7 L* MCV 106 H MCH 34.9 H MCHC 33.0 RDW 18.4 H Plt Count 97 L MPV 9.9 Immature Gran % 0.6 Neutrophils % 67.1 Lymphocytes % 22.7 Monocytes % 7.2 Eosinophils % 1.8 Basophils % 0.6 Nucleated RBC % 0.0 Absolute Neutrophils 2.25 Absolute Lymphocytes 0.76 L Absolute Monocytes 0.24 Absolute Eosinophils 0.06 Absolute Basophils 0.02 RBC Morphology See Below Anisocytosis 2+ Macrocytosis 2+ PT 12.1 H INR 1.2 H D-Dimer 896 H Sodium 135 L Potassium 4.5 Chloride 99 Carbon Dioxide 22.3 Anion Gap 13.7 H BUN 21 H Creatinine 1.6 H Est GFR (CKD-EPI 2020) 31.21 Glucose 112 H Calcium 9.5 Magnesium 2.1 Total Bilirubin 0.3 AST 25 ALT 27 Alkaline Phosphatase 69 Troponin I < 50 NT-Pro-B Natriuret Pep 61978 H Total Protein 10.4 H Albumin 2.3 L Urine Color Yellow Urine Clarity Clear Urine pH 6.0 Ur Specific [place] 1.015 Urine Protein 30 H Urine Ketones Negative Urine Blood Negative Urine Nitrite Negative Urine Bilirubin Negative Urine Urobilinogen 0.2 Ur Leukocyte Esterase Small H Urine RBC 0-2 Urine WBC 10-20 H Ur Epithelial Cells Rare Urine Crystals Negative Urine Bacteria Rare Urine Casts Negative Urine Mucus Negative Urine Other Rare Transitional Ur Culture Indicated? Yes Urine Glucose Negative Crossmatch See Detail 11/01/23 15:56 WBC RBC Hgb Hct MCV MCH MCHC RDW Plt Count MPV Immature Gran % Neutrophils % Lymphocytes % Monocytes % Eosinophils % Basophils % Nucleated RBC % Absolute Neutrophils Absolute Lymphocytes Absolute Monocytes Absolute Eosinophils Absolute Basophils RBC Morphology Anisocytosis Macrocytosis PT INR D-Dimer Sodium Potassium Chloride Carbon Dioxide Anion Gap BUN Creatinine Est GFR (CKD-EPI 2020) Glucose Calcium Magnesium Total Bilirubin AST ALT Alkaline Phosphatase Troponin I < 50 NT-Pro-B Natriuret Pep Total Protein Albumin Urine Color Urine Clarity Urine pH Ur Specific [place] Urine Protein Urine Ketones Urine Blood Urine Nitrite Urine Bilirubin Urine Urobilinogen Ur Leukocyte Esterase Urine RBC Urine WBC Ur Epithelial Cells Urine Crystals Urine Bacteria Urine Casts Urine Mucus Urine Other Ur Culture Indicated? Urine Glucose Crossmatch Last Vital Signs Temp 37.2 C 11/01/23 12:43 Pulse 89 11/01/23 19:01 Resp 20 11/01/23 19:10 BP 113/43 L 11/01/23 19:01 Pulse Ox 95 11/01/23 19:10 Time Spent Time spent with Patient: >75 minutes Time was spent: preparing to see the patient(eg.review tests), obtaining and/or reviewing separately otained hiistory, ordering medications,tests, procedures, indepentently interpreting results and care coordination
--- NOTE | 2023-11-01 22:46 | NUR.NOTE ---
Nursing Note: Daughter expressed concern that the patient was supposed to have an outpatient palliative consult tomorrow and states she would like that to happen in the hospital and wants to be present for the consult. RIC Smith RN and Castro WHITFIELD notified.
[2023-11-01] MEDS: Gabapentin 100 MG CAP PO (23:04)
[2023-11-01] MEDS: Furosemide 40 MG/4 ML VIAL IVP (23:05)
[2023-11-01] MEDS: Ondansetron 4 MG/2 ML VIAL IVP (23:05)
[2023-11-02] VITALS (18 sets, daily range): BP systolic 89–101; BP diastolic 40–57; PULSE 72–89; RESP 16–20; TEMP 36–38.8; O2SAT 92–100
[2023-11-02] MEDS: levoFLOXacin 750 MG/150 ML BAG 100 MG IVPB (00:50)
[2023-11-02] MEDS: Normal Saline Flush 10 ML SYR IVP ×4 (01:04→20:52)
[2023-11-02 06:46] LABS: MCH 35.1 pg (27.0-33.0); MCV 103 fL (80-95); MPV 10.1 fL (8.0-11.0); RBC 1.51 10^6/uL (3.93-5.22); RDW 18.3 % (11.7-14.6); RDW-SD 68.5 fL; WBC 3.06 10^3/uL (4.4-10.8)
[2023-11-02 06:53] LABS: HGB 5.3 g/dL (11.2-15.7)
[2023-11-02 06:54] LABS: HCT 15.6 % (36.0-46.0)
[2023-11-02 06:57] LABS: INR 1.3 (0.9-1.1)
[2023-11-02 07:13] LABS: Platelet Count 91 10^3/uL (130-400)
[2023-11-02 07:19] LABS: ALT 23 U/L (14-59); AST 22 U/L (15-37); Alkaline Phosphatase 62 U/L (46-116); Anion Gap 13.8 mmol/L (3-11); BUN 22 mg/dL (7-18); Bilirubin, Total 0.4 mg/dL (0.2-1.0); CO2 23.2 mmol/L (21.0-32.0); Calcium 9.2 mg/dL (8.5-10.1); Chloride 99 mmol/L (98-107); Estimated GFR 23.88 (mL/min/1.73m2); Glucose 93 mg/dL (74-106); Magnesium 2.1 mg/dL (1.8-2.4); Potassium 4.4 mmol/L (3.5-5.1); Sodium 136 mmol/L (136-145); Total Protein 9.7 g/dL (6.4-8.2)
[2023-11-02] MEDS: Lactated Ringers 500 ML 1000 ML IV (07:50)
[2023-11-02] MEDS: Pantoprazole 40 MG VIAL IVP ×2 (08:15→20:52)
--- NOTE | 2023-11-02 08:28 | PCNE_ITS ---
Date of service: 11/02/23 Time of Service: 08:28 History of Present Illness Narrative: Yolie Johns is an 88-year-old woman from [facility] who has a diagnosis of multiple myeloma since 2022. She was admitted to the hospital overnight due to profound anemia and is awaiting low antibody blood to arrive for transfusion. She was diagnosed with multiple myeloma 6 weeks ago she had a 4-day acute hospital inpatient stay because of pneumonia and sepsis. Care Team: Primary Care physician: Social HX: Marital Status: Occupation: Children: Hobbies: Additional Services: Impression of currents health status: What bothers you the most: What worries you the most: Goals: Current information preferences: Function: Ambulation: ADLs: iADLs: Hearing: Vision: Cognition: Falls: Driving: Palliative Performance Scale % Ambulation Activity and Evidence of Disease Self Care Intake Level of Consciousness 100 Full Normal activity, no evidence of disease Full Normal Full 90 Full Normal activity, some evidence of disease Full Normal Full 80 Full Normal activity with effort, some evidence of disease Full Normal or reduced Full 70 Reduced Unable to do normal work, some evidence of disease Full Normal or reduced Full 60 Reduced Unable to do hobby or some housework, significant disease Occasional assist necessary Normal or reduced Full or confusion 50 Mainly sit/lie Unable to do any work, extensive disease Considerable assistance required Normal or reduced Full or confusion 40 Mainly in bed Unable to do any work, extensive disease Mainly assistance Normal or reduced Full, drowsy, or confusion 30 Totally bed bound Unable to do any work, extensive disease Total care Reduced Full, drowsy, or confusion 20 Totally bed bound Unable to do any work, extensive disease Total care Minimal sips Full, drowsy, or confusion 10 Totally bed bound Unable to do any work, extensive disease Total care Mouth care only Drowsy or coma 0 - - - - Patient Score: Spiritual history: Palliative review of systems: Pain: Dyspnea: GI symptoms: Appetite: Depression: Anxiety: None Emotional Distress: Spiritual/Existential Distress: Labs: Cr: Liver panel: Albumin: CBC: Advanced Care Planning: Advanced Directive: Health Care Agent: COLST: Limitations: PFSH All Active Problems (Updated 11/01/23 @ 22:39 by Cullen Childress) Pneumonia (Acute) Aspiration pneumonia (Acute) Frequent nosebleeds (Acute) Urinary tract infection (Acute) CHF (congestive heart failure) (Acute) Multiple myeloma not having achieved remission (Acute) Community acquired pneumonia (Acute) GERD with esophagitis (Chronic) Multiple myeloma in relapse (Chronic) Anemia (Chronic) Bandemia (Acute) Thrombocytopenia (Chronic) Leukopenia (Acute) Medical History Paresthesia Fatigue History of COVID-19 Presence of hip joint prosthesis Prediabetes Astigmatism Myopia Acute upper respiratory infection Atherosclerosis of arteries of extremities Tear film insufficiency Atherosclerosis of artery History of malignant neoplasm of skin Presbyopia Lower urinary tract infectious disease Hypermetropia Depression 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 Low back pain 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 Pain in thoracic spine Pure hypercholesterolemia Dyspnea Abnormal weight loss History of urinary system disease GERD (gastroesophageal reflux disease) Basal cell carcinoma of skin Macular drusen Lumbosacral radiculopathy Actinic keratosis Insomnia Spinal stenosis of lumbar region Increased frequency of urination Multiple myeloma Monoclonal gammopathy COVID-19 Surgical History History of right hip replacement 09/2020 S/P lumbar fusion 03/2019 Mohs defect of nose x4 S/P ORIF (open reduction internal fixation) fracture 2013 right wrist fracture H/O cataract extraction 2007 H/O: hysterectomy H/O colonoscopy 2001 History of tonsillectomy age 12 History of artificial eye lens Social History Smoking/Tobacco Use Status: Never Smoking risk assessment performed?: Yes Alcohol Intake: current Alcohol Intake frequency: holidays/special occasions only Drug use: Never Substance use type: does not use Housing: house Do you feel safe at home: Yes Do you feel safe in your relationship?: Yes Additional Social history: lives along with cats Results Last Vital Signs Temp 36.0 C L 11/02/23 03:42 Pulse 74 11/02/23 03:42 Resp 19 11/02/23 03:42 BP 90/50 L 11/02/23 07:26 Pulse Ox 92 11/02/23 03:42 Labs 11/02/23 06:06 11/02/23 06:06 Labs: Laboratory Results - last 24 hr 11/01/23 11/01/23 11/01/23 13:06 13:59 14:25 WBC 3.35 L RBC 1.86 L Hgb 6.5 L* Hct 19.7 L* MCV 106 H MCH 34.9 H MCHC 33.0 RDW 18.4 H Plt Count 97 L MPV 9.9 Immature Gran % 0.6 Neutrophils % 67.1 Lymphocytes % 22.7 Monocytes % 7.2 Eosinophils % 1.8 Basophils % 0.6 Nucleated RBC % 0.0 Absolute Neutrophils 2.25 Absolute Lymphocytes 0.76 L Absolute Monocytes 0.24 Absolute Eosinophils 0.06 Absolute Basophils 0.02 RBC Morphology See Below Anisocytosis 2+ Macrocytosis 2+ PT 12.1 H INR 1.2 H D-Dimer 896 H Sodium 135 L Potassium 4.5 Chloride 99 Carbon Dioxide 22.3 Anion Gap 13.7 H BUN 21 H Creatinine 1.6 H Est GFR (CKD-EPI 2020) 31.21 Glucose 112 H Calcium 9.5 Magnesium 2.1 Total Bilirubin 0.3 AST 25 ALT 27 Alkaline Phosphatase 69 Troponin I < 50 NT-Pro-B Natriuret Pep 84799 H Total Protein 10.4 H Albumin 2.3 L Urine Color Yellow Urine Clarity Clear Urine pH 6.0 Ur Specific [place] 1.015 Urine Protein 30 H Urine Ketones Negative Urine Blood Negative Urine Nitrite Negative Urine Bilirubin Negative Urine Urobilinogen 0.2 Ur Leukocyte Esterase Small H Urine RBC 0-2 Urine WBC 10-20 H Ur Epithelial Cells Rare Urine Crystals Negative Urine Bacteria Rare Urine Casts Negative Urine Mucus Negative Urine Other Rare Transitional Ur Culture Indicated? Yes Urine Glucose Negative Crossmatch See Detail 11/01/23 11/02/23 15:56 06:06 WBC 3.06 L RBC 1.51 L Hgb 5.3 L* Hct 15.6 L* MCV 103 H MCH 35.1 H MCHC 34.0 RDW 18.3 H Plt Count 91 L MPV 10.1 Immature Gran % Neutrophils % Lymphocytes % Monocytes % Eosinophils % Basophils % Nucleated RBC % Absolute Neutrophils Absolute Lymphocytes Absolute Monocytes Absolute Eosinophils Absolute Basophils RBC Morphology Anisocytosis Macrocytosis PT 13.0 H INR 1.3 H D-Dimer Sodium 136 Potassium 4.4 Chloride 99 Carbon Dioxide 23.2 Anion Gap 13.8 H BUN 22 H Creatinine 2.0 H Est GFR (CKD-EPI 2020) 23.88 Glucose 93 Calcium 9.2 Magnesium 2.1 Total Bilirubin 0.4 AST 22 ALT 23 Alkaline Phosphatase 62 Troponin I < 50 NT-Pro-B Natriuret Pep Total Protein 9.7 H Albumin 2.0 L Urine Color Urine Clarity Urine pH Ur Specific [place] Urine Protein Urine Ketones Urine Blood Urine Nitrite Urine Bilirubin Urine Urobilinogen Ur Leukocyte Esterase Urine RBC Urine WBC Ur Epithelial Cells Urine Crystals Urine Bacteria Urine Casts Urine Mucus Urine Other Ur Culture Indicated? Urine Glucose Crossmatch
--- NOTE | 2023-11-02 12:12 | W.PM.PROGNOT ---
Date of Service Date of service: 11/02/23 Time of Service: 12:12 Assessment and Plan Assessment and plan (1) Anemia: Status: Chronic Assessment and plan: still awaiting transfusion of 2 units of packed red blood cells once available in the morning. Long-term plans are for arranging hospice for home care with family to discuss this further with hospice consultation in the morning. Qualifiers: Anemia type: unspecified type Qualified Code(s): D64.9 - Anemia, unspecified (2) CHF (congestive heart failure): Status: Acute Qualifiers: Heart failure chronicity: acute Heart failure type: diastolic Qualified Code(s): I50.31 - Acute diastolic (congestive) heart failure (3) Pneumonia: Status: Acute Assessment and plan: continue Levaquin day 2 which will also cover possible UTI. Qualifiers: Laterality: bilateral Lung location: lower lobe of lung Pneumonia type: due to unspecified organism Qualified Code(s): J18.9 - Pneumonia, unspecified organism (4) Urinary tract infection: Status: Acute Assessment and plan: Urine culture pending continue Levaquin day 2 Patient does have multiple allergies with limited choices. Qualifiers: Hematuria presence: without hematuria Urinary tract infection type: acute cystitis Qualified Code(s): N30.00 - Acute cystitis without hematuria (5) Multiple myeloma in relapse: Status: Chronic Assessment and plan: Not responding well to therapy with patient to have hospice consultation. (6) GERD with esophagitis: Status: Chronic Assessment and plan: Continue PPI. Qualifiers: Esophagitis bleeding: without hemorrhage Qualified Code(s): K21.00 - Gastro-esophageal reflux disease with esophagitis, without bleeding (7) Frequent nosebleeds: Status: Acute Assessment and plan: Patient recently has had at least 4 recent episodes suggesting nosebleed with patient coughing small clots of blood. She does have mild thrombocytopenia associated with multiple myeloma. Monitor with symptomatic care. discussed with DR Perea Subjective Subjective Patient reports: no new complaints and afebrile; denies shortness of breath Exam Const General: cooperative and no acute distress HENMT Mouth: mucous membranes dry Eyes Conjunctivae: normal conjunctivae Sclera: normal sclerae Resp Auscultation: clear to auscultation bilaterally Cardio Rate: regular rate and not tachycardic Rhythm: regular rhythm Heart Sounds: murmur systolic II/ GI Inspection: non-distended Palpation: soft Skin General skin exam: no rashes or lesions noted and turgor decreased Neuro General: patient alert, patient awake, patient oriented x3 and tone normal Extrem General: no edema Psych Appearance: grossly normal Mental Status: mental status grossly normal Speech and Movement: speech and movement normal Objective Last Vital Signs Temp 36.7 C 11/02/23 12:04 Pulse 83 11/02/23 12:04 Resp 18 11/02/23 12:04 BP 97/51 L 11/02/23 12:04 Pulse Ox 100 11/02/23 12:04 Laboratory Results - last 24 hr 11/01/23 11/01/23 11/01/23 13:06 13:59 14:25 WBC 3.35 L RBC 1.86 L Hgb 6.5 L* Hct 19.7 L* MCV 106 H MCH 34.9 H MCHC 33.0 RDW 18.4 H Plt Count 97 L MPV 9.9 Immature Gran % 0.6 Neutrophils % 67.1 Lymphocytes % 22.7 Monocytes % 7.2 Eosinophils % 1.8 Basophils % 0.6 Nucleated RBC % 0.0 Absolute Neutrophils 2.25 Absolute Lymphocytes 0.76 L Absolute Monocytes 0.24 Absolute Eosinophils 0.06 Absolute Basophils 0.02 RBC Morphology See Below Anisocytosis 2+ Macrocytosis 2+ PT 12.1 H INR 1.2 H D-Dimer 896 H Sodium 135 L Potassium 4.5 Chloride 99 Carbon Dioxide 22.3 Anion Gap 13.7 H BUN 21 H Creatinine 1.6 H Est GFR (CKD-EPI 2020) 31.21 Glucose 112 H Calcium 9.5 Magnesium 2.1 Total Bilirubin 0.3 AST 25 ALT 27 Alkaline Phosphatase 69 Troponin I < 50 NT-Pro-B Natriuret Pep 05507 H Total Protein 10.4 H Albumin 2.3 L Urine Color Yellow Urine Clarity Clear Urine pH 6.0 Ur Specific [place] 1.015 Urine Protein 30 H Urine Ketones Negative Urine Blood Negative Urine Nitrite Negative Urine Bilirubin Negative Urine Urobilinogen 0.2 Ur Leukocyte Esterase Small H Urine RBC 0-2 Urine WBC 10-20 H Ur Epithelial Cells Rare Urine Crystals Negative Urine Bacteria Rare Urine Casts Negative Urine Mucus Negative Urine Other Rare Transitional Ur Culture Indicated? Yes Urine Glucose Negative ABO/Rh O Positive Antibody Screen POSITIVE Antibody Identification Panagglutinin Crossmatch See Detail 11/01/23 11/02/23 15:56 06:06 WBC 3.06 L RBC 1.51 L Hgb 5.3 L* Hct 15.6 L* MCV 103 H MCH 35.1 H MCHC 34.0 RDW 18.3 H Plt Count 91 L MPV 10.1 Immature Gran % Neutrophils % Lymphocytes % Monocytes % Eosinophils % Basophils % Nucleated RBC % Absolute Neutrophils Absolute Lymphocytes Absolute Monocytes Absolute Eosinophils Absolute Basophils RBC Morphology Anisocytosis Macrocytosis PT 13.0 H INR 1.3 H D-Dimer Sodium 136 Potassium 4.4 Chloride 99 Carbon Dioxide 23.2 Anion Gap 13.8 H BUN 22 H Creatinine 2.0 H Est GFR (CKD-EPI 2020) 23.88 Glucose 93 Calcium 9.2 Magnesium 2.1 Total Bilirubin 0.4 AST 22 ALT 23 Alkaline Phosphatase 62 Troponin I < 50 NT-Pro-B Natriuret Pep Total Protein 9.7 H Albumin 2.0 L Urine Color Urine Clarity Urine pH Ur Specific [place] Urine Protein Urine Ketones Urine Blood Urine Nitrite Urine Bilirubin Urine Urobilinogen Ur Leukocyte Esterase Urine RBC Urine WBC Ur Epithelial Cells Urine Crystals Urine Bacteria Urine Casts Urine Mucus Urine Other Ur Culture Indicated? Urine Glucose ABO/Rh Antibody Screen Antibody Identification Crossmatch Time Spent with Patient Time Spent with Patient: 25-34 minutes Time was spent: preparing to see the patient(eg.review tests), obtaining and/or reviewing separately otained hiistory, ordering medications,tests, procedures, indepentently interpreting results and counseling the patient
--- NOTE | 2023-11-02 12:33 | PCNE_ITS ---
Date of service: 11/02/23 Time of Service: 12:33 History of Present Illness Narrative: Yolie Paul is an 88-year-old woman from [facility] who has multiple myeloma.Other medical problems include history of CHF, GERD, pancytopenia, history of malignant melanoma of arm, scleritis. Multiple myeloma: Diagnosed September 2022. T11 compression fracture found on PET scan at time of diagnosis. On several regimens of chemotherapy. In June took a drug holiday because of progressive failure. However she had a rapidly rising M spike and IgA l(Explosive recurrence )and therefore started a trial of car/Pom/Ambar/Dex about 9 weeks ago. In addition to the multiple myeloma she has a history of chronic GI blood loss of unclear etiology. ADmitting note mentions esophagitis. This is complicated her treatment .Shortly after starting this regimen, she developed pneumonia with sepsis and was admitted to [facility]. After discharge, she completed antibiotics as an outpatient and chemo/immunotherapy was held. She last met with oncology about 2 weeks ago. At that point Dr. Lawrence felt that she would not be able to tolerate an aggressive antimyeloma regimen. However he did not think that a low intensity therapy would control her disease either. He then went on to recommend transitioning to supportive care and hospice. At the time of that visit, family thought this was the right thing for the patient but the patient herself was reluctant to consider . Then over the last week or so patient developed cough ,increasing SOB, and weakness. She presented to the ED where she was noted to be hypotensive, coughing up green sputum, Have a bump in her creatinine to 1.6 from CLAIRE and was even more anemic than usual. She requested transfusion. And therefore was admitted (as she needs a rare type low antibody type O blood, that takes a while to Type and Match). Team:; Primary Care physician: Dr. Queen, [facility] Oncology: [place], [place] [facility] [place] Social HX: Lives alone in Mobile home in [place]. Two cats LIved last 40 years in [place] until 2 years ago after breaking her hip. Daughter and grandchildren provide transportation. 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 Children: Daughter Carrie lives nearby; two sons . Hobbies: Crochets aphgans, read, does puzzles. Additional Services: Impression of currents health status: I had two pets that and I was allowed to put them down, I wish What bothers you the most: That she cannot do anything. What worries you the most: Does not answer Goals: Hopes to be able to live for a long time, has a lot to do: Has to american she needs to radha before [place], many books to read. As far short-term goals are concerned: She wants to go home. Current information preferences: Okay to talk openly Function: Ambulation: Was ambulating independently prior to admission ADLs: Currently needing assist. Totally independent ADLs prior to admission iADLs: Currently needing assist, was totally independent up until diagnosis of multiple myeloma. Unclear when she started needing help with heavy chores, cooking, vacuuming Hearing: Intact Vision: Cognition: Intact Falls: Driving:NO longer drives Palliative Performance Scale % Ambulation Activity and Evidence of Disease Self Care Intake Level of Consciousness 100 Full Normal activity, no evidence of disease Full Normal Full 90 Full Normal activity, some evidence of disease Full Normal Full 80 Full Normal activity with effort, some evidence of disease Full Normal or reduced Full 70 Reduced Unable to do normal work, some evidence of disease Full Normal or reduced Full 60 Reduced Unable to do hobby or some housework, significant disease Occasional assist necessary Normal or reduced Full or confusion 50 Mainly sit/lie Unable to do any work, extensive disease Considerable assistance required Normal or reduced Full or confusion 40 Mainly in bed Unable to do any work, extensive disease Mainly assistance Normal or reduced Full, drowsy, or confusion 30 Totally bed bound Unable to do any work, extensive disease Total care Reduced Full, drowsy, or confusion 20 Totally bed bound Unable to do any work, extensive disease Total care Minimal sips Full, drowsy, or confusion 10 Totally bed bound. Unable to do any work, extensive disease Total care Mouth care only Drowsy or coma 0 - - - - Patient Score: 50 last 2 weeks. A year ago with PPS 90 Spiritual history: It's how you live it, not sure she believes in god and does notpray. When she is stressed out , she reads. Palliative review of systems: See HPI Pain: Dyspnea: GI symptoms: Appetite: Depression: Anxiety: None Emotional Distress: Spiritual/Existential Distress: Labs: Cr: 2.0 (baseline 0.9-1.2) Liver panel: NL Albumin: 2.0 CBC: hgb 5.3 this morning! (previous 6.7-10 range last 4 months), plts 91k (down to 41k last month), WBC 3.06 (lower last month) Advanced Care PlManning: Advanced Directive:Maybe did one in [facility] Agent: Daughter mikhail Butler COLST: Code status is DNR/DNI, For a long time. but no COLST on file. Limitations: Assessment and Plan Assessment and plan (1) Multiple myeloma not having achieved remission: Status: Acute Assessment and plan: Patient with multiple myeloma that has not responded to chemo/immunotherapy or has had intolerable side effects/adverse effects from treatment. Her oncologist is recommending that she transition to hospice. Patient seems to understand that further chemo/immunotherapy would do more harm than good. She does have some sadness as well as anger regarding this, has both respect and also some anger towards her oncologist over how things went. There have been mixed messages from the patient, her daughter regarding whether or not she wants to go to hospice over the last 2 weeks. I was unable to sort that out. However today she is not against hospice admission and daughter is definitely for hospice admission and she does not wish to come back to the hospital again for IV antibiotics or fluids and does not wish to pursue any further chemo or immunotherapy. Hospice that they had a ready admitted her. Plan is that she will be admitted to hospice when she discharges from the hospital. (2) GI bleed: Status: Chronic Assessment and plan: Patient reportedly with ongoing GI bleeding contributing to anemia from multiple myeloma. She had heme positive stools in the past. She received 1 units packed red blood cells during her last hospital admission and will receive 2 units total today. She reports she is not received any other transfusions. She has received iron transfusions in the past. We discussed that blood transfusions are generally not felt to be part of hospice. When she was on hospice she would no longer be receiving transfusions of packed red blood cells or iron. I am not sure she understood this. Daughter seem to be aware of this. I explained that symptoms of dyspnea or fatigue would be treated by the hospice team. (3) Severe anemia: Status: Acute (4) Palliative care patient: Status: Acute (5) Advanced care planning/counseling discussion: Status: Acute Assessment and plan: - Regarding CODE STATUS: Patient is listed as DNR/DNI but no COLST form available. May have one on file with PCP. We discussed the procedure of CPaR, actual mechanical process, rate of success in restoring heartbeat, short and long-term side effects in survivors (including likely decreased physical and cognitive functioning). Sounds like patient has Requested DNR/DNI status for many years. She is ready to not come back to the hospital after discharge for treatment such as IV antibiotics, IV fluids, further investigations or imaging. She would like oral antibiotics if she gets a UTI because this would make her feel better. COLST form completed reflecting her wishes. Original given to daughter who will bring home. Copies to hospital staff and will be scanned in. Regarding Healthcare Agent: Patient and daughter believes she has a form but have not been able to find it recently. May have left in [place]. Patient would like daughter Carrie Wallis to be healthcare agent. Granddaughter will be alternate. Healthcare agent form completed witnessed and signed and original given to family and copy given to hospital staff Hospice discussion: See also above. Patient is ready for hospice admission once she is discharged from the hospital. She is interested in remaining as active as possible even when on hospice, continuing to read books and to so and to spend time with her family and friends. She is interested in spending time with her cats. Family (Daughter, patient's sister, patient's grandchildren) are planning to schedule having someone in her home at all times. MAID: Patient requested more information on medical assistance in dying. Daughter explained that she has been asking about this. Patient points out that she put 2 of her pets down over the last 15 years. She thought it was a gentle and humane process and wishes that she could be offered the same treatment. When asked at what point she would want to do this, she had not thought this through but would like it available when the time comes . She is not currently having any pain. Fatigue is the most bothersome symptom. We discussed the basics process of medical assistance in dying as outlined by [place] act 39 including: -eligibility criteria (prognosis less than 6 months, capacity at both the time of initial request and on day 14 and on the day that the medication is prescribe, that they are making an informed disc excision, that the request is voluntary, that they are at least 18 years old) -We discussed her medical diagnosis, her prognosis, that my prediction of her life expectancy is based on my best medical judgment -We discussed treatment options for her, treatment by hospice team, all feasible end-of-life services including comfort care, hospice care and pain control. -We discussed the probable result of taking the medication as prescribed. -WeDiscussed that this process is voluntary and she can decide to continue the process or decide not to take medication at any time up until the time that she actually takes the medication. -I outlined the timeline involved with the process: Today and therefore she is not eligible to take medication until day 15. However she can take medication after that if she remains eligible (maintains capacity and still has prognosis of 6 months or less), -She needs to make a written request; she was given a copy of the request letter to complete and have witnessed by 2 people as per instructions on the form -She will need a second opinion from a second physician within the next 14 days. -she will need to make a second oral request for medical assistance in dying no sooner than 15 days from now. -Handout was given to patient and daughter including pamphlet from patient [employer] [place] as well as 1 page printed with medical aid in dying Internet resources for additional information Case discussed with Dr. Shannon French on for hospice team today. She and Dr. Koehler are out of town for the next 10 days. One of them will plan to function as second consulting physician and will do this shortly after November 11 when they are back in town. I will plan to see patient for follow-up evaluation on or after November for teeth. PFSH All Active Problems (Updated 11/02/23 @ 16:26 by Nilam Ibarra MD) Advanced care planning/counseling discussion (Acute) Palliative care patient (Acute) Severe anemia (Acute) GI bleed (Chronic) Pneumonia (Acute) Aspiration pneumonia (Acute) Frequent nosebleeds (Acute) Urinary tract infection (Acute) CHF (congestive heart failure) (Acute) Multiple myeloma not having achieved remission (Acute) Community acquired pneumonia (Acute) GERD with esophagitis (Chronic) Multiple myeloma in relapse (Chronic) Anemia (Chronic) Bandemia (Acute) Thrombocytopenia (Chronic) Leukopenia (Acute) Medical History Paresthesia Fatigue History of COVID-19 Presence of hip joint prosthesis Prediabetes Astigmatism Myopia Acute upper respiratory infection Atherosclerosis of arteries of extremities Tear film insufficiency Atherosclerosis of artery History of malignant neoplasm of skin Presbyopia Lower urinary tract infectious disease Hypermetropia Depression 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 Low back pain 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 Pain in thoracic spine Pure hypercholesterolemia Dyspnea Abnormal weight loss History of urinary system disease GERD (gastroesophageal reflux disease) Basal cell carcinoma of skin Macular drusen Lumbosacral radiculopathy Actinic keratosis Insomnia Spinal stenosis of lumbar region Increased frequency of urination Multiple myeloma Monoclonal gammopathy COVID-19 Surgical History History of right hip replacement 09/2020 S/P lumbar fusion 03/2019 Mohs defect of nose x4 S/P ORIF (open reduction internal fixation) fracture 2013 right wrist fracture H/O cataract extraction 2007 H/O: hysterectomy H/O colonoscopy 2001 History of tonsillectomy age 12 History of artificial eye lens Social History Smoking/Tobacco Use Status: Never Smoking risk assessment performed?: Yes Alcohol Intake: current Alcohol Intake frequency: holidays/special occasions only Drug use: Never Substance use type: does not use Housing: house Do you feel safe at home: Yes Do you feel safe in your relationship?: Yes Additional Social history: lives along with cats Exam Narrative Exam Narrative: Alert, oriented, pleasant, talkative thin elderly woman. Has oxygen on. No respiratory distress or cough. Does not appear pale. Does look tired. Results Last Vital Signs Temp 36.7 C 11/02/23 12:04 Pulse 83 11/02/23 12:04 Resp 18 11/02/23 12:04 BP 97/51 L 11/02/23 12:04 Pulse Ox 100 11/02/23 12:04 Labs 11/02/23 06:06 11/02/23 06:06 Labs: Laboratory Results - last 24 hr 11/01/23 11/01/23 11/01/23 13:06 13:59 14:25 WBC 3.35 L RBC 1.86 L Hgb 6.5 L* Hct 19.7 L* MCV 106 H MCH 34.9 H MCHC 33.0 RDW 18.4 H Plt Count 97 L MPV 9.9 Immature Gran % 0.6 Neutrophils % 67.1 Lymphocytes % 22.7 Monocytes % 7.2 Eosinophils % 1.8 Basophils % 0.6 Nucleated RBC % 0.0 Absolute Neutrophils 2.25 Absolute Lymphocytes 0.76 L Absolute Monocytes 0.24 Absolute Eosinophils 0.06 Absolute Basophils 0.02 RBC Morphology See Below Anisocytosis 2+ Macrocytosis 2+ PT 12.1 H INR 1.2 H D-Dimer 896 H Sodium 135 L Potassium 4.5 Chloride 99 Carbon Dioxide 22.3 Anion Gap 13.7 H BUN 21 H Creatinine 1.6 H Est GFR (CKD-EPI 2020) 31.21 Glucose 112 H Calcium 9.5 Magnesium 2.1 Total Bilirubin 0.3 AST 25 ALT 27 Alkaline Phosphatase 69 Troponin I < 50 NT-Pro-B Natriuret Pep 33218 H Total Protein 10.4 H Albumin 2.3 L Urine Color Yellow Urine Clarity Clear Urine pH 6.0 Ur Specific [place] 1.015 Urine Protein 30 H Urine Ketones Negative Urine Blood Negative Urine Nitrite Negative Urine Bilirubin Negative Urine Urobilinogen 0.2 Ur Leukocyte Esterase Small H Urine RBC 0-2 Urine WBC 10-20 H Ur Epithelial Cells Rare Urine Crystals Negative Urine Bacteria Rare Urine Casts Negative Urine Mucus Negative Urine Other Rare Transitional Ur Culture Indicated? Yes Urine Glucose Negative ABO/Rh O Positive Antibody Screen POSITIVE Antibody Identification Panagglutinin Crossmatch See Detail 11/01/23 11/02/23 15:56 06:06 WBC 3.06 L RBC 1.51 L Hgb 5.3 L* Hct 15.6 L* MCV 103 H MCH 35.1 H MCHC 34.0 RDW 18.3 H Plt Count 91 L MPV 10.1 Immature Gran % Neutrophils % Lymphocytes % Monocytes % Eosinophils % Basophils % Nucleated RBC % Absolute Neutrophils Absolute Lymphocytes Absolute Monocytes Absolute Eosinophils Absolute Basophils RBC Morphology Anisocytosis Macrocytosis PT 13.0 H INR 1.3 H D-Dimer Sodium 136 Potassium 4.4 Chloride 99 Carbon Dioxide 23.2 Anion Gap 13.8 H BUN 22 H Creatinine 2.0 H Est GFR (CKD-EPI 2020) 23.88 Glucose 93 Calcium 9.2 Magnesium 2.1 Total Bilirubin 0.4 AST 22 ALT 23 Alkaline Phosphatase 62 Troponin I < 50 NT-Pro-B Natriuret Pep Total Protein 9.7 H Albumin 2.0 L Urine Color Urine Clarity Urine pH Ur Specific [place] Urine Protein Urine Ketones Urine Blood Urine Nitrite Urine Bilirubin Urine Urobilinogen Ur Leukocyte Esterase Urine RBC Urine WBC Ur Epithelial Cells Urine Crystals Urine Bacteria Urine Casts Urine Mucus Urine Other Ur Culture Indicated? Urine Glucose ABO/Rh Antibody Screen Antibody Identification Crossmatch
--- NOTE | 2023-11-02 13:08 | W.SPSTE ---
Date of service: 11/02/23 Time of Service: 12:00 Subjective Clinical (Bedside) Swallow Evaluation - Inpatient Speech Language Pathology Referred by: Dr. Childress Start time: 11:50 am End time: 12:10 pm Total patient contact: 20min Referral Type: Routine Swallow Consult Precautions: DNR/DNI, Standard Reason for Referral/HPI: Yolie is an 88 y/o with multiple myeloma admitted with cough, weakness, SOB, and acute anemia exacerbation, also with CHF, GERD with esophagitus, UTI and question of persistent lung infiltrates/aspiration pneumonia, admitted for transfusion and awaiting hospice consultation from palliative care this hospitalization. 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 On bedside exam, she appears to tolerate soft/bite size solids, purees, and thin liquids without s/sx aspiration but does endorse esophageal discomfort and frequent stasis especially with solid foods such as meat. Endorses needing foods to be very soft and small pieces. Patient is on ~1L oxygen via nasal cannula and appears SOB when chewing/swallowing this date. Suspect she has baseline esophageal dysphagia, likely exacerbated by medical status and now with increased oral-pharyngeal risk in light of overall deconditioning and SOB. Patient also appearing extremely fatigued with self-feeding mastication. Suggest diet modification for energy conservation, reduced work of breathing, efficiency, and to reduce esophageal stasis. FURTHER INPATIENT BUILDING INSULATION SUPERVISOR SERVICES: Patient to be followed while on unit pending GOC DISCHARGE RECOMMENDATIONS: Pending GOC, however, do not anticipate additional BUILDING INSULATION SUPERVISOR services will be indicated unless symptoms not resolved with diet change, or pending further decline in swallow status. Diet Recommendations: ? SOLIDS: 5-Minced & Moist Solids (OK TO INCLUDE PUREED SOLIDS ON TRAYS WELL) LIQUIDS: 0-Thin Liquids MEDICATIONS: Whole With 0-Thin Liquids RISK MANAGEMENT: Level of Assistance/Supervision: Intermittent supervision for all PO intake Positioning and environment: PO intake only when awake/alert? Reduce auditory and/or visual distractions when eating [place] upright for all PO intake. Oral hygiene BID/2x per day Strategies/Adaptations/Assistive Equipment: Small bites Alternate intake of liquids and solids Reflux Precautions: Small+frequent meals throughout day Maintain fully upright position at least 30 minutes after meals Avoid meals/snacks 2-3 hours prior to reclining/sleeping Sleep with head of bed elevated to reduce likelihood of nocturnal reflux Education Provided to: Patient Family Topics Addressed: anatomy/physiology of swallowing mechanism definition and impacts of aspiration impact of current diagnoses on swallow function role of BUILDING INSULATION SUPERVISOR in management of swallow disorders overt s/sx to monitor for re: potential aspiration of food / liquids relationship between reflux, GERD and swallow fxn relationship between respiratory function and deglutition rationale and instruction for additional risk management strategies as below SUBJECTIVE: Patient received: alert/awake. Agreeable to evaluation. Pain Reported n/a Baseline Swallow Function: Patient reports esophageal stasis at baseline. OBJECTIVE Patient positioning: As upright as possible using HOB/bed tilt controls Oral care: Reported recently completed Respiratory status: Low flow nasal cannula, appears SOB throughout lunch Orientation/Mental status: Oriented to self, Oriented to situation, appears to be a reliable rn bsn but sometimes with tangential responses, able to follow instructions. Speech: WFL Oral Motor/Peripheral Examination: Notable only for global weakness, no focal deficits PO Intake: Trials Assessed: IDDSI 0 Thin Liquids IDDSI 4 Puree Solid IDDSI 6 Soft & Bite Size Solid Oral Phase Findings: Difficulty chewing (frequent pausing for SOB/weakness) Pharyngeal Phase Findings: WFL Esophageal Phase Findings: ? Patient reports esophageal stasis PLAN: Frequency: 1-2x/week for 1-2 weeks No further BUILDING INSULATION SUPERVISOR services indicated at this time. Please re-refer as needed. Goals: Penitentiary Goals: Patient will safely tolerate safest/least restrictive diet for optimal nutrition. Short Term Goals: Patient will tolerate Minced/Moist Diet and Thin liquids without overt s/s aspiration across 2/2 visits. Patient will tolerate PO trials for consideration of diet upgrade without overt s/s aspiration across 2/2 visits. BUILDING INSULATION SUPERVISOR CPT Code: 44652 Clinical Swallowing Evaluation Objective Assessment Suspect primarily esophageal etiology. Provided reflux education. Change diet to minced/moist for energy conservation, work of breathing, and pharyngo-esophageal clearance.
[2023-11-02] MEDS: Furosemide 20 MG/2 ML VIAL IVP (14:37)
--- NOTE | 2023-11-02 16:22 | INITIAL_ITS ---
Date of service: 11/02/23 Time of Service: 16:23 Care Management Initial Assmt Initial Assessment REASON FOR HOSPITALIZATION:: Symptomatic anemia, CHF, MM PREVIOUS FUNCTIONAL STATUS/SOCIAL/FAMILY SUPPORTS:: Yolie lives alone in a mobile home in [place], [place]. She had 3 children but both of her sons are . Her daughter Carrie lives locally and is close and supportive. 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 She is independent with all care and activities and does not receive any community services. Yolie no longer drives however her daughter and grandchildren assist with her transportation needs. CURRENT FUNCTIONAL STATUS:: Yolie requested Palliative consult with Dr. Ibarra prior to Hospice consult. [facility] reports Yolie was scheduled to admit to Hospice today, but presented to [facility]. Dr. Ibarra met with Yolie and reports discussed MAID; per patient's request. Yolie Butler's daughter has been advocating for Hospice admission and will be her primary caregiver. ADVANCE DIRECTIVES:: On file; Carrie as agent. Has patient been provided with info about the portal/API?: Yes Did the patient sign up for the portal?: No CODE STATUS:: DNR/DNI INSURANCE COVERAGE / FINANCIAL ISSUES:: BC/BS Medicare Replacement ([facility] Ad[employer]) CURRENT HOME/COMMUNITY SERVICES/EQUIPMENT:: Pending Hospice admission per [facility]. PRIMARY CARE PHYSICIAN:: María Reynolds POTENTIAL DISCHARGE NEEDS:: Palliative, Hospice consults. PATIENT/FAMILY EDUCATION NEEDS:: Review of discharge instructions, activity, limitations, follow up plan, discuss Ask Me Three ANTICIPATED BARRIERS TO DISCHARGE:: None identified. TRANSPORTATION:: Via private vehicle with family. PLAN:: Discharge to be admitted to Hospice per Palliative MD. CM following. [facility] All Active Problems (Updated 11/04/23 @ 06:50 by Marleen Boyce, ALLAN) Hypotension (Acute) CLAIRE (acute kidney injury) (Acute) Advanced care planning/counseling discussion (Acute) Palliative care patient (Acute) Severe anemia (Acute) GI bleed (Chronic) Pneumonia (Acute) Aspiration pneumonia (Acute) Frequent nosebleeds (Acute) Urinary tract infection (Acute) CHF (congestive heart failure) (Acute) Multiple myeloma not having achieved remission (Acute) Community acquired pneumonia (Acute) GERD with esophagitis (Chronic) Multiple myeloma in relapse (Chronic) Anemia (Chronic) Bandemia (Acute) Thrombocytopenia (Chronic) Leukopenia (Acute) Medical History Paresthesia Fatigue History of COVID-19 Presence of hip joint prosthesis Prediabetes Astigmatism Myopia Acute upper respiratory infection Atherosclerosis of arteries of extremities Tear film insufficiency Atherosclerosis of artery History of malignant neoplasm of skin Presbyopia Lower urinary tract infectious disease Hypermetropia Depression 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 Low back pain 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 Pain in thoracic spine Pure hypercholesterolemia Dyspnea Abnormal weight loss History of urinary system disease GERD (gastroesophageal reflux disease) Basal cell carcinoma of skin Macular drusen Lumbosacral radiculopathy Actinic keratosis Insomnia Spinal stenosis of lumbar region Increased frequency of urination Multiple myeloma Monoclonal gammopathy COVID-19 Surgical History History of right hip replacement 09/2020 S/P lumbar fusion 03/2019 Mohs defect of nose x4 S/P ORIF (open reduction internal fixation) fracture 2013 right wrist fracture H/O cataract extraction 2007 H/O: hysterectomy H/O colonoscopy 2001 History of tonsillectomy age 12 History of artificial eye lens Social History Smoking/Tobacco Use Status: Never Smoking risk assessment performed?: Yes Alcohol Intake: current Alcohol Intake frequency: holidays/special occasions only Drug use: Never Substance use type: does not use Housing: house Do you feel safe at home: Yes Do you feel safe in your relationship?: Yes Additional Social history: lives along with cats SDOH(Care Management) Screening Will the Patient Participate in the Screening?: Yes Do you worry about having a steady place to live?: no Problems where you live: no known problems In the past 12 months, have you had to go without electric, gas, oil or water in your home?: no Have you or anyone in your house had to go without enough food to eat?: no Has lack of transportation kept you from medical appointments or from doing things needed for daily living?: no Has anyone in your support network made you feel unsafe for any reason?: no
[2023-11-02] MEDS: Gabapentin 100 MG CAP PO (20:51)
[2023-11-03] VITALS (9 sets, daily range): BP systolic 85–100; BP diastolic 44–65; PULSE 70–86; RESP 18–20; TEMP 36.4–37.5; O2SAT 92–96
[2023-11-03 06:40] LABS: Abs Immature Grans 0.02 10^3/uL (0.0-0.06); Absolute Basophil Count 0.02 10^3/uL (0.0-0.2); Absolute Lymphocyte Count 0.78 10^3/uL (1.2-3.4); Basophils % 0.6 %; Eosinophils % 2.9 %; HGB 8.1 g/dL (11.2-15.7); Immature Grans % 0.6 %; Lymphocytes % 22.8 %; MCH 33.2 pg (27.0-33.0); MCHC 35.2 % (32.0-36.0); MCV 94 fL (80-95); MPV 10.1 fL (8.0-11.0); Monocytes % 5.8 %; Neutrophils % 67.3 %; RBC 2.44 10^6/uL (3.93-5.22); WBC 3.42 10^3/uL (4.4-10.8)
[2023-11-03 07:22] LABS: Diff Comment Diff Reviewed
[2023-11-03 07:23] LABS: Anisocytosis 2+; Hypochromasia 2+; Platelet Count 78 10^3/uL (130-400)
[2023-11-03] MEDS: Escitalopram 10 MG TAB 5 MG PO (08:23)
[2023-11-03] MEDS: Cholecalciferol (Vitamin D3) 1,000 UNIT TAB 2000 UNITS PO (08:23)
[2023-11-03] MEDS: Gabapentin 100 MG CAP PO ×3 (08:23→19:59)
[2023-11-03] MEDS: Pantoprazole 40 MG VIAL IVP ×2 (08:23→19:59)
[2023-11-03] MEDS: Normal Saline Flush 10 ML SYR IVP ×3 (08:30→20:00)
--- NOTE | 2023-11-03 09:59 | PDOC.CMPRO ---
Date of service: 11/03/23 Time of Service: 09:59 Care Management Progress Note Progress Note Text Progress Note Text: S/O:Yolie was sitting up in bed when CM met with her. Her daughter Kailey was present and had questions that CM was able to answer. Yolie will likely be discharged home tomorrow. She met with someone from hospice last week and will likely be admitted to the hospice service after discharge. She verbalized not really wanting to be on hospice but understands that she will have additional help available. Yolie stated that she doesn't like to have a lot of people around and Kailey shared that she does not like to ask for or receive help. Kailey identified that when the time comes, she will be Yolie's designated caregiver and will remain with her. A:Yolie is an 88 year old woman admitted on 11/01/23 with CHF and anemia P:Anticipate Yolie will be discharged home and admitted to hospice when medically stable. She will follow up with her community providers and plan of care and transport with family. CM will follow and continue to support discharge planning needs. SDOH(Care Management) Screening Will the Patient Participate in the Screening?: Yes Do you worry about having a steady place to live?: no Problems where you live: no known problems In the past 12 months, have you had to go without electric, gas, oil or water in your home?: no Have you or anyone in your house had to go without enough food to eat?: no Has lack of transportation kept you from medical appointments or from doing things needed for daily living?: no Has anyone in your support network made you feel unsafe for any reason?: no
--- NOTE | 2023-11-03 14:02 | W.PM.PROGNOT ---
Date of Service Date of service: 11/03/23 Time of Service: 14:02 Assessment and Plan Assessment and plan (1) Multiple myeloma not having achieved remission: Status: Acute Assessment and plan: Patient with multiple myeloma that has not responded to chemo/immunotherapy or has had intolerable side effects/adverse effects from treatment. Her oncologist is recommending that she transition to hospice. palliative care following and consult pending (2) Severe anemia: Status: Acute Assessment and plan: multifactoral with progressive multiple myeloma as #1 factor, stools are positive for OB but suspect d/t frequent nose bleeding. received 2 units of PRBC and hemoglobin at 8 will not recheck labs for now (3) CLAIRE (acute kidney injury): Status: Acute Assessment and plan: suspect prerenal d/t poor po intake d/t chronic worsening illness likely acutely worsening in setting of IV diuresis and low BP. stop lasix hold nephrotic drugs gentle IV hydration of just 500 ml as this will also hemodilute her (4) Hypotension: Status: Acute Assessment and plan: says her blood pressure runs low but this may be below her usual will stop IV diuresis and trial gentle hydration, see above check orthostatics, consider midodrine if symptomatic (5) Palliative care patient: Status: Acute Assessment and plan: awaiting consultation, anticipate hospice admission soon (6) CHF (congestive heart failure): Status: Acute Assessment and plan: concern was overdiuresed will stop lasix suspect SOB was related to severe anemia and possible pneumonia, unknown significance of elevated BNP last echo September 2023 Conclusion Normal left ventricular wall thickness chamber size. Ejection fraction is 55 %. Wall motion is normal Normal right ventricular size and function Both atria are moderately enlarged Aortic valve is mildly sclerotic and trileaflet without stenosis or regurgitation Mild mitral annular calcification. Mild mitral regurgitation Ascending aorta measure 3.57 cm Qualifiers: Heart failure type: diastolic Heart failure chronicity: acute Qualified Code(s): I50.31 - Acute diastolic (congestive) heart failure (7) Pneumonia: Status: Acute Assessment and plan: continue Levaquin day 2 which will also cover possible UTI. no oxygen requirements Qualifiers: Pneumonia type: due to unspecified organism Laterality: bilateral Lung location: lower lobe of lung Qualified Code(s): J18.9 - Pneumonia, unspecified organism (8) Urinary tract infection: Status: Acute Assessment and plan: Urine culture pending continue Levaquin day 2 Patient does have multiple allergies with limited choices. Qualifiers: Urinary tract infection type: acute cystitis Hematuria presence: without hematuria Qualified Code(s): N30.00 - Acute cystitis without hematuria (9) GERD with esophagitis: Status: Chronic Assessment and plan: Continue PPI. Qualifiers: Esophagitis bleeding: without hemorrhage Qualified Code(s): K21.00 - Gastro-esophageal reflux disease with esophagitis, without bleeding (10) Frequent nosebleeds: Status: Acute Assessment and plan: Patient recently has had at least 4 recent episodes Monitor with symptomatic care. discussed with DR Holm Subjective Subjective Patient reports: tolerating liquids well, tolerating a regular diet and afebrile Interval history since last seen: blood pressures remain low but no dizziness when OOB, continues to remain fatigued, is eating and drinking Exam Const General: frail appearing and ill appearing chronically Nutritional Appearance: thin Orientation: alert, awake and oriented x3 HENMT Head: normal to inspection, normocephalic and atraumatic Mouth: moist mucous membranes abnormal (dry) Neck Neck: no JVD Resp Effort & Inspection: normal respiratory effort Cardio Rate: regular rate Rhythm: regular rhythm Skin General skin exam: no rashes or lesions noted Neuro General: patient alert, patient awake and patient oriented x3 Extrem General: normal to inspection, full ROM and no pedal edema Objective Last Vital Signs Temp 37.1 C 11/03/23 11:32 Pulse 77 11/03/23 11:32 Resp 18 11/03/23 11:32 BP 92/56 L 11/03/23 11:32 Pulse Ox 92 11/03/23 11:32 Laboratory Results - last 24 hr 11/01/23 11/03/23 13:59 06:10 WBC 3.42 L RBC 2.44 L Hgb 8.1 L D Hct 23.0 L MCV 94 D MCH 33.2 H MCHC 35.2 RDW 21.0 H Plt Count 78 L MPV 10.1 Immature Gran % 0.6 Neutrophils % 67.3 Lymphocytes % 22.8 Monocytes % 5.8 Eosinophils % 2.9 Basophils % 0.6 Nucleated RBC % 0.0 Absolute Neutrophils 2.30 Absolute Lymphocytes 0.78 L Absolute Monocytes 0.20 Absolute Eosinophils 0.10 Absolute Basophils 0.02 RBC Morphology See Below Hypochromasia 2+ Anisocytosis 2+ ABO/Rh O Positive Antibody Screen POSITIVE Antibody Identification Panagglutinin Crossmatch See Detail Time Spent with Patient Time Spent with Patient: 35-49 minutes Time was spent: preparing to see the patient(eg.review tests), obtaining and/or reviewing separately otained hiistory, ordering medications,tests, procedures, referring, communicating with other health healthcare financial analyst, indepentently interpreting results and counseling the patient
--- NOTE | 2023-11-03 14:13 | PHA.REVIEW2 ---
Pharmacy Admission Review Admission Clinical Review Admission Pharmacy Review: (Updated 11/02/23 @ 16:26 by Nilam Ibarra MD) Advanced care planning/counseling discussion (Acute) Palliative care patient (Acute) Severe anemia (Acute) Pneumonia (Acute) Frequent nosebleeds (Acute) Urinary tract infection (Acute) CHF (congestive heart failure) (Acute) Multiple myeloma not having achieved remission (Acute) cephalexin Allergy (Severe, Unverified 11/01/23 12:46) vomiting, diarrhea amoxicillin Allergy (Intermediate, Unverified 11/01/23 12:46) rash nitrofurantoin [From Macrobid] Adverse Reaction (Severe, Unverified 11/01/23 12:46) diarrhea prednisone Adverse Reaction (Intermediate, Unverified 11/01/23 12:46) hyperactivity Resuscitation Status DNR/DNI Height 5 ft 1 in Weight 54.9 kg Comments Comments/Follow Ups: Per morning meeting, plan is for patient to be discharged home on hospice. Pharmacy Admission Review Renal Dosing Renal Dosing: BUN 22 mg/dL (7-18) H 11/02/23 06:06 Creatinine 2.0 mg/dL (0.55-1.02) H 11/02/23 06:06 Medications needing adjustments: Reviewed (CrCl 17 mL/min) List of meds needing interventions: Current medications are okay Anticoagulation Anticoagulation: Hgb 8.1 g/dL (11.2-15.7) L D 11/03/23 06:10 Hct 23.0 % (36.0-46.0) L 11/03/23 06:10 Plt Count 78 10^3/uL (130-400) L 11/03/23 06:10 INR 1.3 (0.9-1.1) H 11/02/23 06:06 Creatinine 2.0 mg/dL (0.55-1.02) H 11/02/23 06:06 DVT Prophylaxis: Reviewed (SCDs) Opiate Usage Evaluate Pain Scale/Pains Meds: Reviewed (PRN morphine concentrate, no doses given so far) Scheduled Bowel Reg ordered if on Opiates?: No (PRN Miralax and docusate) Relevant Labs Relevant Labs: Sodium 136 mmol/L (136-145) 11/02/23 06:06 Potassium 4.4 mmol/L (3.5-5.1) 11/02/23 06:06 Chloride 99 mmol/L (98-107) 11/02/23 06:06 Magnesium 2.1 mg/dL (1.8-2.4) 11/02/23 06:06 Electrolytes, C-Reactive P, ESR: Reviewed (WBC 3.42, Hgb increased from 5.3 to 8.1, Hct increased from 15.6 to 23) Cardiac Review Cardiac Review: Troponin I < 50 ng/L (< or =60) 11/01/23 15:56 NT-Pro-B Natriuret Pep 49289 pg/mL (<300) H 11/01/23 13:06 BP, HR, EF%: Reviewed (HR WNL, BP 92/56) QTc Review QTc: Reviewed (452 from 11/01/23) IV to PO Switch IV Medications: Reviewed Home Meds Home Med List reviewed: Reviewed Current Meds Current Medication Order Review: Reviewed Pharmacy Antibiotic Review Pharmacy Antibiotic Activity: C/S review and Reviewed, no change Comments: Patient is on levofloxacin 750mg IV q48h, day 2 for UTI. Urine culture growing gram positive mateo. Comments Comments/Follow Ups: Per morning meeting, plan is for patient to be discharged home on hospice.
[2023-11-03] MEDS: Normal Saline 1,000 ML 50 ML IV (14:40)
--- NOTE | 2023-11-03 17:09 | CHAPLAIN ---
Yolie was up in the recliner visiting with her daughter, Kailey, when I stopped in. Yolie may be going home with hospice care. Kailey wasn't sure of the timing of her discharge. 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 She moved back to [place] from [place]. Yolie live in her own home in [place] and Kailey lives in [facility]. She visits often and is very supportive of her mom. I will continue to visit.
[2023-11-04] MEDS: levoFLOXacin 750 MG/150 ML BAG IVPB (00:49)
[2023-11-04 03:10] VITALS: BP 96/46; PULSE 78; RESP 17; TEMP 36.3; O2SAT 96
[2023-11-04 07:40] VITALS: BP 86/50; PULSE 64; RESP 17; TEMP 36.4
[2023-11-04] MEDS: Escitalopram 10 MG TAB 5 MG PO (08:20)
[2023-11-04] MEDS: Normal Saline Flush 10 ML SYR IVP ×2 (08:20→22:14)
[2023-11-04] MEDS: Polyethylene Glycol 3350 17 GM PACKET PO (08:20)
[2023-11-04] MEDS: Gabapentin 100 MG CAP PO ×3 (08:20→22:14)
[2023-11-04] MEDS: Cholecalciferol (Vitamin D3) 1,000 UNIT TAB 2000 UNITS PO (08:20)
[2023-11-04] MEDS: Pantoprazole 40 MG VIAL IVP ×2 (08:20→22:13)
[2023-11-04] MEDS: Midodrine 2.5 MG TAB PO ×3 (09:58→22:14)
--- NOTE | 2023-11-04 10:11 | DSE_ITS ---
Date of service: 11/04/23 Time of Service: 09:00 DS: Diagnosis Discharge Diagnosis (1) Multiple myeloma not having achieved remission: Status: Acute (2) Severe anemia: Status: Acute (3) CLAIRE (acute kidney injury): Status: Acute (4) Hypotension: Status: Acute (5) Palliative care patient: Status: Acute (6) CHF (congestive heart failure): Status: Acute (7) Pneumonia: Status: Acute (8) Urinary tract infection: Status: Acute (9) GERD with esophagitis: Status: Chronic (10) Frequent nosebleeds: Status: Acute Discharge Plan Disposition Patient Disposition: Home W/Home Health Services Condition: Improving Discharge Details Reason For Visit: Symptomatic anemia, CHF, MM Admit Date/Time: 11/01/23 19:27 Admit Provider: Cullen Childress Attending Provider: Cullen Childress Primary Care Provider: María Reynolds Hospital Course Hospital Course: This 88-year-old female patient with a past medical history of paresthesia, vit reous degeneration of both eyes, scleritis, malignant melanoma of upper limb, GERD, lumbar radiculopathy, monoclonal gammopathy, history of hysterectomy, history of CHF, GERD, anemia, thrombocytopenia, leukopenia and multiple myeloma presented in the ER at [facility] on 11/01/2023 with complaints of cough for 2weeks , increased weakness, fatigue, weight loss, shortness of breath, decreased oral intake, and low blood pressures. Patient reported green sputum with streaks of blood, nausea, epigastric pain with food intake. Labs in the ED revealed an H&H of 6.5 and 19.7, platelets of 97, BNP 16,578, creatinine of 1.6 from baseline of 0.9, negative guaiac; imaging showed no pneumonia with resolution of past infiltrates.UA showed WBC 10-20 with leuk esterase cultures were pending. 2 units of PRBC were ordered in the ED with the necessity of further Arnav type due to chemo meds, and a gluten, Wilner negative blood need. [facility] am barrel rifler button was consulted and Dr. Bergeron reported that patient had been referred to hospice as all treatment option for the myeloma has been exhausted. In the ED the patient was treated with IV Protonix, IV Lasix considered but held by ED provider d/t soft bloodpressure and refusal of vasoprssors by patient. The hospitalist was consulted and the patient was admitted to the medical surgical floor for evaluation and management of anemia, congestive heart failure, pneumonia, UTI. During the stay the patient received 2 units of packed red blood cells, IV Lasix, levofloxacin. H&H went as low as 5.3 and 15.6 during this stay and was 8.1 and 23.0 on discharge. The patient had an active care consult for end-of-life care or the patient requested medical assistance in dying with the plan remaining to discharge patient home with palliative care and a referral by Dr. Nilam Ibarra to Dr. Abril Marshall of [facility] to see patient as a second consulting physician prior to November 18, 2023. Speech pathologist was consulted with recommendation to have a moist and minced diet. During a meeting with her healthcare representative, the patient reported meeting with someone from hospice last week and will likely be admitted to the hospice service after discharge. The patient will be discharged home today with home health with nursing, Occupational Therapy, physical therapy, and medical radiation therapist. The patient will also have a palliative care consult. Discussed with Dr. Holm. Home Meds and New Rx's Prescriptions: New midodrine 2.5 mg Tablet 2.5 mg PO TID Qty: 90 0RF levofloxacin 750 mg tablet 750 mg PO Q48H Qty: 2 0RF Continued gabapentin 100 mg capsule 100 mg PO TID albuterol sulfate 90 mcg/actuation HFA aerosol inhaler 2 puff inhalation Q4H PRN Rx Instructions: for wheezing Balanced B-100 Complex 100 mg tablet extended release 1 tab PO DAILY calcium carbonate 500 mg calcium (1,250 mg) tablet 500 mg PO DAILY magnesium amino acid chelate 100 mg tablet 100 mg PO DAILY omega 9-whf-vva-fish oil 850-1,400 mg capsule 1 cap PO DAILY red yeast rice 600 mg capsule 600 mg PO BID Rx Instructions: give with meal/snack acetaminophen 650 mg suppository 650 mg DC Q6H PRN (Reason: fever, mild pain) Qty: 6 0RF Rx Instructions: Hospice Patient hyoscyamine sulfate 0.125 mg tablet,disintegrating 0.125 - 0.25 mg PO Q4H PRN (Reason: secretions) Qty: 24 0RF Rx Instructions: Hospice Patient lorazepam 1 mg tablet 1 mg PO Q4H PRN (Reason: anxiety, [place] or nausea) Qty: 6 5RF Rx Instructions: Hospice Patient haloperidol lactate 2 mg/mL concentrate 1 mg PO Q6H PRN (Reason: agitation) Qty: 15 0RF Rx Instructions: Hospice Patient morphine concentrate 100 mg/5 mL (20 mg/mL) solution 5 - 20 mg PO Q1-4H MDD 5 mL PRN (Reason: moderate to severe pain or shortness of breath) Qty: 30 0RF Rx Instructions: Hospice Patient prochlorperazine maleate 10 mg tablet 10 mg PO Q6H PRN (Reason: nausea and vomiting) Qty: 6 0RF Rx Instructions: Hospice Patient bisacodyl [Dulcolax (bisacodyl)] 10 mg suppository 10 mg DC daily PRN (Reason: constipation) Qty: 2 0RF Rx Instructions: Hospice Patient Insert 1 supp DC Daily PRN constipation (no BM in 3 days) vitamin B complex [B Complex-Vitamin B12] Tablet 1 tab PO DAILY cholecalciferol (vitamin D3) [Vitamin D3] 50 mcg (2,000 unit) capsule 50 mcg PO DAILY C Complex 1,000 mg tablet extended release 1,000 mg PO DAILY omeprazole 20 mg capsule,delayed release(DR/EC) 20 mg PO DAILY Patient Comments: need refill on prescription escitalopram oxalate 5 mg tablet 5 mg PO DAILY Held aspirin [Adult Low Dose Aspirin] 81 mg tablet,delayed release (DR/EC) 81 mg PO DAILY Hold Instructions: Resume on 11/12/23. As per PCP Discharge Instructions Referrals: [facility] [Provider Group] (88 yo female failing remission of multiple myeloma and already seen by Dr. Ibarra as an inpatient) María Reynolds [Primary Care Provider] - (F/u within 7 days of discharge please ) Activity:: Activity as Tolerated Equipment/Supplies:: No Equipment Needed Diet:: Minced and moist DS: Summary Time Spent with Patient providing and/or coordinating discharge services: Less than 30 minutes Status at Discharge Functional status at discharge: uses cane/walker Overall status at discharge: patient is progressing back to baseline Mental Status: mental status grossly normal Speech and Movement: speech and movement normal and slowed movement Mood: congruent mood Affect: normal affect Quality:SDOH Health Related Social Needs: No Data to Display Exam Narrative Exam Narrative: Constitutional The patient is frail appearing with general weakness, without acute distress and has cachectic body habitus HENMT: Facial structures with normal appearance Neuro:alert and oriented to self, person, place time and situation. No neurological focal deficit Resp: Normal respiratory pattern, clear lung bilaterally Cardio: regular rhythm, S1, S2, no murmur, capillary refill<3 sec., bilateral radial and dorsalis pedis pulses are positive GI: Abdomen is not distended, soft and non tender, bowel sounds are present : Negative Costovertebral angle tenderness Extremities: strength 4/5 to bilateral lower and upper extremities Psych: RASS 0, congruent mood and normal affect. Psych Mental Status: mental status grossly normal Speech and Movement: speech and movement normal and slowed movement Mood: congruent mood Affect: normal affect DS: Data Vitals/I&O Vitals and I&O: Vital Signs Temperature 36.4 C L 11/04/23 07:40 Temperature Source Tympanic 11/04/23 07:40 Pulse 64 11/04/23 07:40 Pulse Rhythm Regular 11/04/23 07:24 Pulse 89 11/01/23 20:45 Respiratory Rate 17 11/04/23 07:40 Respiratory Effort Normal, Non-Labored 11/04/23 07:24 Respiratory Depth Normal 11/04/23 07:24 Respiratory Pattern Normal 11/04/23 07:24 Blood Pressure 86/50 L 11/04/23 07:40 Blood Pressure Mean 65 11/01/23 20:45 Blood Pressure Position Sitting 11/01/23 12:43 Pulse Oximetry 96 11/04/23 03:10 Oxygen Delivery Method Room Air 11/04/23 07:40 Oxygen Flow Rate 0 11/04/23 07:40 Pain Level 0 11/04/23 07:40 Comment BP called over radio 11/04/23 07:40 Intake & Output 11/03/23 11/03/23 11/04/23 11:59 23:59 11:59 Intake Total 500 / 750 250 / 750 1150 / 1150 Output Total 800 / 1000 200 / 1000 Balance -300 / -250 50 / -250 1150 / 1150 Weight 54.9 kg 54.1 kg Intake: IV 500 / 500 1150 / 1150 Oral 250 / 250 Output: Urine 800 / 1000 200 / 1000 Other: Urine Color Yellow Urine Appearance Clear Clear Clear Urine Odor None Comment Rn put pt on the commode and she did not go, pt was also dry at this time [facility] All Active Problems (Updated 11/04/23 @ 06:50 by Marleen Boyce NP) Hypotension (Acute) CLAIRE (acute kidney injury) (Acute) Advanced care planning/counseling discussion (Acute) Palliative care patient (Acute) Severe anemia (Acute) GI bleed (Chronic) Pneumonia (Acute) Aspiration pneumonia (Acute) Frequent nosebleeds (Acute) Urinary tract infection (Acute) CHF (congestive heart failure) (Acute) Multiple myeloma not having achieved remission (Acute) Community acquired pneumonia (Acute) GERD with esophagitis (Chronic) Multiple myeloma in relapse (Chronic) Anemia (Chronic) Bandemia (Acute) Thrombocytopenia (Chronic) Leukopenia (Acute) Medical History Paresthesia Fatigue History of COVID-19 Presence of hip joint prosthesis Prediabetes Astigmatism Myopia Acute upper respiratory infection Atherosclerosis of arteries of extremities Tear film insufficiency Atherosclerosis of artery History of malignant neoplasm of skin Presbyopia Lower urinary tract infectious disease Hypermetropia Depression 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 Low back pain 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 Pain in thoracic spine Pure hypercholesterolemia Dyspnea Abnormal weight loss History of urinary system disease GERD (gastroesophageal reflux disease) Basal cell carcinoma of skin Macular drusen Lumbosacral radiculopathy Actinic keratosis Insomnia Spinal stenosis of lumbar region Increased frequency of urination Multiple myeloma Monoclonal gammopathy COVID-19 Surgical History History of right hip replacement 09/2020 S/P lumbar fusion 03/2019 Mohs defect of nose x4 S/P ORIF (open reduction internal fixation) fracture 2013 right wrist fracture H/O cataract extraction 2007 H/O: hysterectomy H/O colonoscopy 2001 History of tonsillectomy age 12 History of artificial eye lens Social History Smoking/Tobacco Use Status: Never Smoking risk assessment performed?: Yes Alcohol Intake: current Alcohol Intake frequency: holidays/special occasions only Drug use: Never Substance use type: does not use Housing: house Do you feel safe at home: Yes Do you feel safe in your relationship?: Yes Additional Social history: lives along with cats Time Spent with Patient Time Spent with Patient: >85 minutes Time was spent: preparing to see the patient(eg.review tests), obtaining and/or reviewing separately otained hiistory, ordering medications,tests, procedures, referring, communicating with other health day care teacher, indepentently interpreting results, counseling the patient and care coordination
--- NOTE | 2023-11-04 11:14 | PDOC.HHF2F_ITS ---
Home Health Referral Home Health Orders Clinical synopsis of why skilled professionals are needed: This 88 years old female patient with past medical history of paresthesia vitreous degeneration of both eyes medically melanoma of upper limb GERD CHF severe anemia thrombocytopenia, multiple myeloma failing chemo therapy and failing remission who was referred to hospice as per [facility] hem-onco presented to [facility] on 11/01/2023 with severe anemia, CHF pneumonia, UTI. The patient was treated and will continue levofloxacin oral for 2 more doses, saw palliative care and will see them as an outpatient.the patient remains generally weak and frail will need nursing for worsening of symptoms, physical therapy and occasional therapy as she needs frequent period of rest while moving with a walker; the patient will also require medical information specialist to coordinate her complex care. Medical diagnosis necessitation home health referral: This 88 years old female patient with past medical history of paresthesia vitreous degeneration of both eyes medically melanoma of upper limb GERD CHF severe anemia thrombocytopenia, multiple myeloma failing chemo therapy and failing remission who was referred to hospice as per [facility] hem-onco presented to [facility] on 11/01/2023 with severe anemia, CHF pneumonia, UTI. The patient was treated and will continue levofloxacin oral for 2 more doses, saw palliative care and will see them as an outpatient.the patient remains generally weak and frail will need nursing for worsening of symptoms, physical therapy and occasional therapy as she needs frequent period of rest while moving with a walker; the patient will also require medical information specialist to coordinate her complex care. Registered Nurse: Check all that apply Instruct on new or changed medication(s)/assess compliance: Ordered Assess for exacerbation of medical condition, instruct patient/caregivers on signs and symptoms to report for early detection: Ordered Physical Therapist: Check all that apply Increase strength & endurance for safe mobility at home: Ordered To design/establish home maintenance program: Ordered Fall reduction therapy program for patient with history of frequent falls: Ordered Home safety evaluation and teaching/gait training including stair management (if applicable): Ordered Occupational Therapist: Evaluate and treat for patient unable to perform ADL/IADL/self-care: Ordered Upper extremity strengthening, range and motion: Ordered General Utility Worker: Assist with community resources: Ordered Assist with senior care care planning: Ordered Encounter Date and Reason: I certify that a FTF encounter for this patient was performed on November 04, 2023 and that such encounter was related to the primary reason the patient requires home health services. The encounter was conducted in the following manner: * By me as the certifying physician, CALL CENTER OPERATOR, PA or * By an inpatient physician, CALL CENTER OPERATOR or PA during an inpatient stay who communicated findings to me, Certification And Authentication I certify that I composed the above information based on my clinical judgment relating to this patient's medical condition and, if applicable, clinical findings communicated to me by the NPP or inpatient physician who performed the FTF encounter. Name of Provider that will be monitoring home health services: María Hemphill
[2023-11-04 11:50] VITALS: BP 95/47; PULSE 78; RESP 17; TEMP 36.1; O2SAT 95
[2023-11-04] MEDS: Docusate Sodium 100 MG CAP PO ×2 (11:55→22:14)
--- NOTE | 2023-11-04 12:38 | PDOC.CMDIS ---
Date of service: 11/04/23 Time of Service: 12:38 LACE Index Scoring Tool Questions: Length of Stay (in days): 3 Was the patient admitted via the E.D.?: Yes Comorbidities: Congestive Heart Failure, Any Tumor and Metastatic Solid Tumor E.D. Visits: 2 Answers: Total Score: 13 Risk of Readmission: High Risk Care Management Discharge Plan Reason for Hospitalization: Symptomatic anemia, CHF, MM Discharge Plan: Yolie will be discharged home and admitted to hospice when medically stable. She will follow up with her community providers and plan of care and transport with her daughter. Patient/Family Education Needs: Review discharge instructions, discuss Ask Me Three. Services Needed at Discharge: Home Health Care Services (Hospice) SDOH Health Related Social Needs: No Data to Display
--- NOTE | 2023-11-04 13:12 | NUR.NOTE ---
Pt with ongoing urinary retention. Bladder scan showing 450ml. Pt is voiding small amounts at a time. Karen Art notified and instructed to straight cath pt and send her home with home hospice as planned. Discussed with pt risks of straight cath vs reinserting indwelling catheter. Pt refusing indwelling catheter and requesting straight cath. Emptied 400ml with straight cath. Continuing to educate pt on concerns of urinary retention- Karen made aware.
[2023-11-04 14:25] VITALS: BP 110/56
[2023-11-04 15:16] VITALS: BP 100/53; PULSE 76; RESP 16; TEMP 35.8; O2SAT 92
--- NOTE | 2023-11-04 15:45 | PT.INIE ---
PT Notes Visit Reasons: Symptomatic anemia, CHF, MM Inpatient Physical Therapy Evaluation Date: 11/04/2023 Referring Doctor: Karen Cordova NP PT Orders: PT CONSULT: Safety Consult for D/C Precautions: Standard. Fall. Activity as tolerated. Patient Profile/Admitting Diagnosis: Patient is an 88-year-old female with medical history significant for mutiple myeloma in relapse now admitted for management of anemia, CHF, PNA, and UTI. PMHX: All Active Problems (Updated 11/01/23 @ 22:39 by Cullen Childress) Pneumonia (Acute) Aspiration pneumonia (Acute) Frequent nosebleeds (Acute) Urinary tract infection (Acute) CHF (congestive heart failure) (Acute) Multiple myeloma not having achieved remission (Acute) Community acquired pneumonia (Acute) GERD with esophagitis (Chronic) Multiple myeloma in relapse (Chronic) Anemia (Chronic) Bandemia (Acute) Thrombocytopenia (Chronic) Leukopenia (Acute) Medical History Paresthesia Fatigue History of COVID-19 Presence of hip joint prosthesis Prediabetes Astigmatism Myopia Acute upper respiratory infection Atherosclerosis of arteries of extremities Tear film insufficiency Atherosclerosis of artery History of malignant neoplasm of skin Presbyopia Lower urinary tract infectious disease Hypermetropia Depression 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 Low back pain 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 Pain in thoracic spine Pure hypercholesterolemia Dyspnea Abnormal weight loss History of urinary system disease GERD (gastroesophageal reflux disease) Basal cell carcinoma of skin Macular drusen Lumbosacral radiculopathy Actinic keratosis Insomnia Spinal stenosis of lumbar region Increased frequency of urination Multiple myeloma Monoclonal gammopathy COVID-19 Surgical History History of right hip replacement 09/2020 S/P lumbar fusion 03/2019 Mohs defect of nose x4 S/P ORIF (open reduction internal fixation) fracture 2013 right wrist fracture H/O cataract extraction 2007H/O: hysterectomy H/O colonoscopy 2001 History of tonsillectomy age 12 History of artificial eye lens Social History/Home Situation: Yolie lives alone in a mobile home in [place], [place] She has a ramp upon entry. She had 3 children but both of her sons are . Her daughter Carrie lives locally and is close and supportive. 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 She is independent with all care and activities and does not receive any community services. Yolie no longer drives however her daughter and grandchildren assist with her transportation needs. Equipment Owned/DME: Front wheel walker, cane Subjective: Concerned about not knowing what she was going to do especially when she got tired from waling with PT. Hoping to void urine and stool but has been unsuccessful even after mobilization with PT. Reported some discomfort in her lower abdominal area. Complained of chronic pain in her sacral area and of persistent stiffness in her legs. Objective: General Observation: Resting up in bed with head of bed at 40 degrees. Frail-looking. Thoracic kyphosis. Mental Status: Alert and oriented x 3 Pain: 2-3/10 in lower abdominal area ROM: Right Upper Extremity: Shoulder Flexion lacks the last 25% of AROM. Shoulder abduction lacks the last 25% of AROM. Elbow flexion WFL. Wrist flexion WFL. Functional opening and closing of hand WFL. Left Upper Extremity: Shoulder Flexion lacks the last 25% of AROM. Shoulder abduction lacks the last 25% of AROM. Elbow flexion WFL. Wrist flexion WFL. Functional opening and closing of hand WFL. Right Lower Extremity: Hip flexion lacks the last 50% of AROM. Hip abduction WFL. Knee flexion 30 degrees to 90 degrees ACTIVELY while seated at edge of bed. Knee extension -30 degrees. Ankle dorsiflexion WFL. Ankle plantarflexion WFL. Left Lower Extremity: Hip flexion lacks the last 50% of AROM. Hip abduction WFL. Knee flexion 30 degrees to 90 degrees ACTIVELY while seated at edge of bed. Knee extension -30 degrees. Ankle dorsiflexion WFL. Ankle plantarflexion WFL. Strength: Right Upper Extremity: Shoulder flexors 3-/5. Shoulder abductors 3-/5. Elbow flexors 4-/5. Elbow extensors 4-/5. Charger Operator Helper strong. Left Upper Extremity: Shoulder flexors 3-/5. Shoulder abductors 3-/5. Elbow flexors 4-/5. Elbow extensors 4-/5. Charger Operator Helper strong. Right Lower Extremity: Hip flexors 3-/5. Hip abductors 3-/5. Knee flexors 3-/5. Knee extensors 3-/5. Ankle dorsiflexors 4-/5. Ankle plantarflexors 4-/5. Left Lower Extremity:Hip flexors 3-/5. Hip abductors 3-/5. Knee flexors 3-/5. Knee extensors 3-/5. Ankle dorsiflexors 4-/5. Ankle plantarflexors 4-/5. Sensation: Intact sensation light touch bilateral lower extremities. Bed Mobility/Transfers: Supine to sit: Standby assist with HOB at 40 degrees Sit to stand: contact guard assist with FWW Stand to sit: contact guard assist with FWW Gait: Patient ambulates 200 feet with contact-guard using front wheel walke and wheelchair follow of daughter Carrie. Had difficulty manuevering walker during directional changes. Needed help with negotiating obstacles. Moderately short of breath and became more confused when she got tired. Balance: Static Sitting: Good Dynamic Sitting: Good Static Standing: Fair Dynamic Standing: Fair Special Tests: Mobility Limitations Standardized Measure [facility] AM-PAC 6 clicks Basic Mobility Inpatient Short Form: Raw Score: 18 CMS Score: 47% deficit Informed Consent/Education: Patient instructed in purpose of PT consult and plan of care. Assessment: Fragile-looking lady who requires assist of 1 for all transfer task performance. Did not appear stable and safe walking with PT. Increased confusion after walking. Advised patient and daughter to bring up concerns regarding amount of help she will need under hospice level of care to facilitate PT goal formulation. Patient presents with clinical signs and symptoms consistent with current/admitting diagnoses that have resulted to mobility limitations, gait instability, generalized weakness, and overall ADL decline as demonstrated by the following impairment level findings: 1. Decreased strength to B LE major muscle groups 2. Impaired standing balance 3. Impaired activity tolerance Impairments are contributing to the following functional limitations: 1. Decline in bed mobility skills 2. Decline in transfer skills 3. Difficulty with ambulation without assistive device and physical assistance 4. Increased completion time for mobility ADL performance 5. Increased risk for falls 6. Difficulty with managing steps alone safely Patient is assessed as a 37554 moderate complexity based on the following: History: 88-year-old female with past medical history as indicated above Examination: Demonstrable impairment in strength, balance, and mobility level with underlying impairments and functional limitations as exhibited above as well as deficit score of function 47% utilizing the [facility] Mobility Inpatient Short Form Presentation: Evolving Decision Makin moderate complexity Goals: Goals X1 week 1. Supine-Sit independent 2. Sit-Supine independent 3. Sit-Stand independent 4. Stand-Sit independent with FWW 5. Bed-Chair independent with FWW 6. Chair-Bed independent with FWW 7. Independent gait on level surface with use of FWW for at least 100 feet without report of dyspnea 8. Independent with home exercise program 9. Good static and dynamic standing balance/tolerance Plan of Care/Treatment Plan: 1-2x/day, 7 days/week x 1 week. Plan of care has been reviewed with the PERSONNEL PLACEMENT SPECIALIST providing the service under Physical Therapy direction. Initiate Physical Therapy intervention for pain management as needed, strengthening, bed mobility, transfers, gait, stairs, balance training, and use of assistive device. DISCHARGE RECOMMENDATIONS: [] Home with no services [] [X] Home with services. Patient will benefit from home health PT services in order assess home safety, identify additional equipment needs, and ensure comfortable bed/chair positioning under hospice level of care. [] Home with outpatient PT [] [] SNF for continued rehabilitation [] [] Group Home Care [] [] SNF versus LTC based on ability to participate and progress [] [X] Will benefit from bedside commode to minimize distance walking and reduce fall risk especially at night. TREATMENT CODE/TIME: 03966 x 20 minutes for 1 unit, 67741 x 27 minutes for 1 unit (15:45-16:32). Thank you for the opportunity to participate in the care of this patient. Blossom Duarte PT, DPT, CLT [facility] [place], [place]
--- NOTE | 2023-11-04 18:15 | W.PM.PROGNOT ---
Date of Service Date of service: 11/04/23 Time of Service: 18:15 Assessment and Plan Assessment and plan (1) Multiple myeloma not having achieved remission: Status: Acute Assessment and plan: Patient with multiple myeloma that has not responded to chemo/immunotherapy or has had intolerable side effects/adverse effects from treatment. Her oncologist is recommending that she transition to hospice. palliative care following and consult pending (2) Severe anemia: Status: Acute Assessment and plan: multifactoral with progressive multiple myeloma as #1 factor, stools are positive for OB but suspect d/t frequent nose bleeding. received 2 units of PRBC and hemoglobin at 8 will not recheck labs for now (3) CLAIRE (acute kidney injury): Status: Acute Assessment and plan: suspect prerenal d/t poor po intake d/t chronic worsening illness likely acutely worsening in setting of IV diuresis and low BP. stop lasix hold nephrotic drugs gentle IV hydration of just 500 ml as this will also hemodilute her (4) Hypotension: Status: Acute Assessment and plan: says her blood pressure runs low but this may be below her usual will stop IV diuresis and trial gentle hydration, see above check orthostatics, consider midodrine if symptomatic (5) Palliative care patient: Status: Acute Assessment and plan: awaiting consultation, anticipate hospice admission soon (6) CHF (congestive heart failure): Status: Acute Assessment and plan: concern was overdiuresed lasix stopped at this time No furhter SOB which might have been related to severe anemia and possible pneumonia, unknown significance of elevated BNP last echo September 2023 Conclusion Normal left ventricular wall thickness chamber size. Ejection fraction is 55 %. Wall motion is normal Normal right ventricular size and function Both atria are moderately enlarged Aortic valve is mildly sclerotic and trileaflet without stenosis or regurgitation Mild mitral annular calcification. Mild mitral regurgitation Ascending aorta measure 3.57 cm Qualifiers: Heart failure type: diastolic Heart failure chronicity: acute Qualified Code(s): I50.31 - Acute diastolic (congestive) heart failure (7) Pneumonia: Status: Acute Assessment and plan: Continue Levaquin day 2 which will also cover possible UTI. no oxygen requirements Qualifiers: Pneumonia type: due to unspecified organism Laterality: bilateral Lung location: lower lobe of lung Qualified Code(s): J18.9 - Pneumonia, unspecified organism (8) Urinary tract infection: Status: Acute Assessment and plan: Urine culture pending continue Levaquin 3rd dose pending but Q 48 hours Patient does have multiple allergies with limited choices. Qualifiers: Urinary tract infection type: acute cystitis Hematuria presence: without hematuria Qualified Code(s): N30.00 - Acute cystitis without hematuria (9) GERD with esophagitis: Status: Chronic Assessment and plan: on PPI. Qualifiers: Esophagitis bleeding: without hemorrhage Qualified Code(s): K21.00 - Gastro-esophageal reflux disease with esophagitis, without bleeding (10) Urinary retention: Status: Acute Assessment and plan: Figueroa inserted on admission, patient unable to void after removal. Failed voiding trial: Patient is refusing indwelling catheter and wants to continue the voiding trial. (11) Discharge planning issues: Status: Acute Assessment and plan: Discharge was planned for today with nursing, PT OT, FAMILY AND CONSUMER EDUCATION TEACHER, but daughter Kailey stated that she was not contacted this AM to be informed Patient was already with prior to discharge; reordered nevertheless PT eval conducted. Further needs brought about by daughter discussed with rn urgent care Discussed with DR Holm Subjective Subjective Patient reports: no new complaints, feels better, tolerating liquids well, tolerating a regular diet and no bowel movement; denies still having pain, diarrhea, nausea, vomiting, shortness of breath or fever Exam Narrative Exam Narrative: Constitutional The patient is frail appearing with general weakness, without acute distress and has cachectic body habitus HENMT: Facial structures with normal appearance Neuro:alert and oriented to self, person, place time and situation. No neurological focal deficit Resp: Normal respiratory pattern, clear lung bilaterally Cardio: regular rhythm, S1, S2, no murmur, capillary refill<3 sec., bilateral radial and dorsalis pedis pulses are positive GI: Abdomen is not distended, soft and non tender, bowel sounds are present : Negative Costovertebral angle tenderness Extremities: strength 4/5 to bilateral lower and upper extremities Psych: RASS 0, congruent mood and normal affect. Objective Last Vital Signs Temp 35.8 C L 11/04/23 15:16 Pulse 76 11/04/23 15:16 Resp 16 11/04/23 15:16 BP 100/53 L 11/04/23 15:16 Pulse Ox 92 11/04/23 15:16 Time Spent with Patient Time Spent with Patient: >50 minutes Time was spent: preparing to see the patient(eg.review tests), obtaining and/or reviewing separately otained hiistory, ordering medications,tests, procedures, referring, communicating with other health customer care assistant, indepentently interpreting results, counseling the patient and care coordination
[2023-11-04 22:28] VITALS: BP 108/54; PULSE 73; RESP 14; O2SAT 94
[2023-11-05 04:32] VITALS: BP 95/47; PULSE 68; RESP 16; O2SAT 92
[2023-11-05 07:59] VITALS: BP 98/52; PULSE 72; RESP 16; RESP 17; TEMP 36; O2SAT 95
--- NOTE | 2023-11-05 08:57 | PT.INTREAT ---
PT Notes Visit Reasons: Symptomatic anemia, CHF, MM Inpatient Physical Therapy Treatment Note Date: 11/05/2023 Subjective: Hopeful she could have a bowel movement or void urine. PT offered to go on a walk as far as she could go in the hallway to help with voiding which patient agreed to. Reported calves being stiff initially. Tired after walking but happy as she was able to move bowel right after. Nurse Mac aware and saw bowel consistency. Objective: General Observation: Resting up in bed with head of bed at 40 degrees. Frail-looking. Thoracic kyphosis. Mental Status: Alert and oriented x 3 Pain: 21-2/10 in lower abdominal area Bed Mobility/Transfers: Supine to sit: Standby assist with HOB at 40 degrees Sit to stand: contact guard assist with FWW Stand to sit: contact guard assist with FWW Gait: Patient ambulates 75 feet + 75 feet with minimal assist using front-wheeled walker and wheelchair follow of daughter Carrie. Continues to need assistance with maneuvering walker during directional changes. Needed help with negotiating obstacles. Moderately short of breath after activity but did not manifest with confusion after activity. BP 102/49 mmHg, HR 78 bpm, oxygen saturation 94% on RA. Balance: Static Sitting: Good Dynamic Sitting: Good Static Standing: Fair Dynamic Standing: Fair Assessment: Fragile-looking lady who requires assist of 1 for all transfer task performance. Short distance essential ambulation only. Will benefit from HH Pt to determine additional equipment needs, caregiver education on providing assistance with mobility tasks at home, and perform home safety evluation. Plan of Care/Treatment Plan: 1-2x/day, 7 days/week x 1 week. Plan of care has been reviewed with the OBSTETRICIAN GYNECOLOGIST providing the service under Physical Therapy direction. Initiate Physical Therapy intervention for pain management as needed, strengthening, bed mobility, transfers, gait, stairs, balance training, and use of assistive device. DISCHARGE RECOMMENDATIONS: [] Home with no services [] [X] Home with services. Patient will benefit from home health PT services in order assess home safety, identify additional equipment needs, and ensure comfortable bed/chair positioning under hospice level of care. [] Home with outpatient PT [] [] SNF for continued rehabilitation [] [] Engineering Librarian Care [] [] SNF versus LTC based on ability to participate and progress [] [X] Will benefit from bedside commode to minimize distance walking and reduce fall risk especially at night. TREATMENT CODE/TIME: 52925 x 32 minutes for 2 units (8:57-9:29). Thank you for the opportunity to participate in the care of this patient. Blossom Duarte PT, DPT, CLT [facility] [place], [place]
[2023-11-05] MEDS: Midodrine 2.5 MG TAB PO (09:26)
[2023-11-05] MEDS: Cholecalciferol (Vitamin D3) 1,000 UNIT TAB 2000 UNITS PO (09:26)
[2023-11-05] MEDS: Escitalopram 10 MG TAB 5 MG PO (09:26)
[2023-11-05] MEDS: Gabapentin 100 MG CAP PO (09:26)
[2023-11-05] MEDS: Normal Saline Flush 10 ML SYR IVP ×2 (09:27→09:43)
[2023-11-05] MEDS: Docusate Sodium 100 MG CAP PO (09:27)
[2023-11-05] MEDS: Normal Saline 10 ML VIAL IJ (09:43)
[2023-11-05] MEDS: Pantoprazole 40 MG VIAL IVP (09:43)
--- NOTE | 2023-11-05 11:40 | PDOC.CMDIS ---
Date of service: 11/05/23 Time of Service: 11:40 LACE Index Scoring Tool Questions: Length of Stay (in days): 4 - 6 Was the patient admitted via the E.D.?: Yes Comorbidities: Congestive Heart Failure and Metastatic Solid Tumor E.D. Visits: 3 Answers: Total Score: 15 Risk of Readmission: High Risk Care Management Discharge Plan Reason for Hospitalization: Symptomatic anemia, CHF, MM Discharge Plan: Yolie will be discharged home with new home health services for nursing, PT, OT and SENIOR APPLICATION SOFTWARE ENGINEER. [facility] is scheduled to meet her at home this afternoon to admit her to Hospice. Yolie will follow up with the hospice providers and plan of care and transport with her daughter Kailey. Patient/Family Education Needs: Review of discharge instructions, medications, limitations, follow up plan, discuss Ask Me Three Services Needed at Discharge: Home Health Care Services SDOH Health Related Social Needs: No Data to Display
== END 2023-11-05 13:12 | disposition home health service (06) | DRG 840 ==
LOC: ER 21:05 → MS 21:08
PROVIDERS: General Practice; Registered Nurse Emergency; Admitting Provider Family Medicine; Emergency Provider Physician Assistant; PCP Nurse Practitioner Family; Visit Provider Family Medicine
DX: C90.02 Multiple myeloma in relapse (principal); I50.31 Acute diastolic (congestive) heart failure; J18.9 Pneumonia, unspecified organism; N30.00 Acute cystitis without hematuria; N17.9 Acute kidney failure, unspecified; D64.9 Anemia, unspecified; R04.0 Epistaxis; I95.9 Hypotension, unspecified; R63.4 Abnormal weight loss; Z68.22 Body mass index [BMI] 22.0-22.9, adult; R33.9 Retention of urine, unspecified; Z66 Do not resuscitate; Z51.5 Encounter for palliative care; K21.00 Gastro-esophageal reflux disease with esophagitis, without bleeding; M54.17 Radiculopathy, lumbosacral region; D69.6 Thrombocytopenia, unspecified; D72.819 Decreased white blood cell count, unspecified; D47.2 Monoclonal gammopathy
CPT/HCPCS: 00123; 36415; 36430; 80053; 85027; 86850; 86900; 86901; 86920; 92610; 93005; 96374; 97162; 97530; 99285; 99498; 71045; 81003; 81015; 83735; 83880; 84484; 85025; 85379; 85610; 86870; 86880; 86902; 86970; 87086; 93010; 94760; 99223; 99231; 99232; 99239; J1940; J1941; J1956; J2405; J2470; P9016